=== PATIENT | male | born 1975 | race Caucasian/White ===

== ENCOUNTER 2021-05-06 16:47 | Outpatient (CLI) | payer BC, SELFPAY ==
--- NOTE | ~2021-05-06 | US_ITS ---
EXAMINATION: US right upper quadrant EXAM DATE: 05/06/2021 17:09 INDICATION: Right upper quadrant pain. TECHNIQUE: Multiple grayscale and Doppler images of the abdomen right upper quadrant were obtained (b y a technologist who performed the scan) and subsequently reviewed. There is no prior study for paxton ho. FINDINGS: The pancreatic head and body are normal in appearance. The pancreatic tail is not visualized. There is echogenic liver parenchyma, hepatic steatosis. There are no focal liver lesions identified. Th ere is no evidence of intrahepatic biliary duct dilation. Portal venous flow was seen in the hepatop edal, normal direction and has normal Doppler waveform. No right-sided hydronephrosis. Common bile duct measures 5 mm, which is normal. The gallbladder wall is normal in thickness, with ex pected amount of distention. No sonographic evidence of pericholecystic fluid. There is no cholelit hiases. Technologist performing exam reports patient did not demonstrate sonographic Churchill's sign. Please note that this sign is less reliable in patients who have received pain medication. IMPRESSION: 1. Hepatic steatosis. Reviewed, dictated and finalized at location G. IMPRESSION: 1. Hepatic steatosis.
== END 2021-05-06 16:48 | disposition home or self-care (01) ==
LOC: ANHIMG 16:51
PROVIDERS: PCP Internal Medicine; Visit Provider Internal Medicine
DX: R10.9 Unspecified abdominal pain (principal); K76.0 Fatty (change of) liver, not elsewhere classified
CPT/HCPCS: 76705

== ENCOUNTER 2023-08-09 15:21 | Outpatient (CLI) | payer BC, SELFPAY ==
--- NOTE | ~2023-08-09 | XR_ITS ---
3 VIEWS THORACIC SPINE Ordering provider: Kathrine Gresham, PAMelony History: . PAIN IN THORACIC SPINE . Comparison: None. FINDINGS: VERTEBRAL BODIES: Normal height and alignment. No visible fracture or subluxation. Degenerative perea es of the spine. DISK SPACES: Narrowing of the disc space at multiple levels in the upper and lower thoracic area is n oted. SOFT TISSUES: Normal. IMPRESSION: No acute osseous abnormality of the thoracic spine. Reviewed, dictated and finalized at location A.
== END 2023-08-09 15:22 ==
PROVIDERS: PCP Physician Assistant; Visit Provider Physician Assistant
DX: M54.6 Pain in thoracic spine (principal)
CPT/HCPCS: 72070

== ENCOUNTER 2024-03-20 12:07 | Observation (INO) | payer BC, SELFPAY ==
[2024-03-20] VITALS (22 sets, daily range): BP systolic 101–141; BP diastolic 63–92; PULSE 77–166; RESP 14–20; TEMP 36.6–37.2; O2SAT 95–100; BMI 26.4
--- NOTE | ~2024-03-20 | CT_ITS ---
EXAMINATION: CT brain wo con DATE: 03/21/2024 13:22 INDICATION: Dizziness TECHNIQUE: Computed tomography (CT) of the head was performed without intravenous contrast. Sagittal and coronal reconstructions were performed. The mA was adjusted according to patient size. Iterative reconstruction technique was employed. The dose-length product was 605.33 mGy-cm. COMPARISON: None FINDINGS: No acute intracranial hemorrhage, acute infarction or abnormal extra axial fluid collection. Ventricl es are normal and symmetric. No mass/mass effect. The orbits, paranasal sinuses and mastoid air cells are normal. IMPRESSION: 1. Normal head CT. Reviewed, dictated and finalized at location A. BONER IMPRESSION: 1. Normal head CT.
--- NOTE | 2024-03-20 12:13 | ECG_ITS ---
Test Date: 2024-03-20 12:23:06 Measurements Intervals [place] Rate: 157 P: 0 WI: 0 QRS: 64 QRSD: 78 T: 22 QT: 232 QTc: 376 Interpretive Statements ATRIAL FLUTTER WITH RPAID VENTRICULAR RESPONSE VENTRICULAR PREMATURE COMPLEX RIGHT VENTRICULAR CONDUCTION DELAY ABNORMAL ECG No previous ECG available for comparison Electronically Signed On 03-20-2024 12:42:13 EXECUTIVE COMMUNICATIONS MANAGER by Trever Guaman D.O.
--- OUTSIDE RECORDS SUMMARY | 2024-03-20 12:19 | XMS_ITS | Data Portability ---
Author Organization [facility], Main Office Address [address] [place] [address] Assessment No assessment recorded. Plan of Treatment Reminders Order Date Submit Date Provider Last Modified By Organization Details Last Modified Time Details Appointments None recorded. Lab CMP, serum or plasma [address] Out[facility], [address] [place], [address], 17:54:37 CBC w/ auto diff [address] Out[facility] Lab, [address] [place], [address], 3 17:54:48 TSH + free T4, serum 2022 023 [facility] Out[facility] Lab, [address] [place], [address], 3 17:49:11 urinalysis complete, reflex culture [address] Out[facility] Lab, [address] [place], [address], 3 17:54:57 lipid panel, serum [address] Out[facility] Lab, [address] [place], [address], 3 17:54:20 PSA, serum or plasma [address] Out[facility] Lab, [address] [place], [address], 3 17:55:06 HbA1c (hemoglobin A1c), blood [address] Out[facility] Lab, [address] [place], [address], 3 17:54:28 CMP, serum or plasma [address] Outpatient Lab, [address] [place], [address], 4 10:08:53 lipid panel, serum [address] Outpatient Lab, [address] [place], [address], 4 10:08:52 Referral None recorded. Procedures colonoscopy screening (PROC) 2022 023 [email or web address] 4 Andie Ramos MD, [address] [facility], [address], [place], [address], 4 10:16:49 Surgeries None recorded. Imaging MRI, lumbar spine, w/o contrast [address] (Imaging), [address] [place], [address], 3 16:53:18 CT, angiogram, head + neck, w/ contrast - approved [id number] [address] (Imaging), [address] [place], [address], 4 10:09:00 Medication Orders None recorded. Patient TargetsNo targets recorded. Patient InstructionsNo instructions recorded. Reason for Referral None Reported. Results Created Date Observation Date Name Description Value Unit Range Abnormal Flag Note LastModifiedBy Organization Detail LastModifiedTime 05/19/19 22 05/18/2021 LIPID PANEL LDL cholesterol, calculated 112 mg/dL 0-130 [facility] REPOR T RECOM MENDA TIONS FOR LDL: ADULT CHILD LOW RISK <130 <110 (OPTI MAL LDL) <100 ----- BORDE RLINE : 130-1 59 ----- HIGH RISK: >160 >130 A TRIGL YCERI DE RESUL T >400 INVAL IDATE S THE CALCU LATIO N FOR LDL FRACT IONAT ION - THE LDL RESUL T WILL NOT BE REPOR EDEN. Not Available [facility] (Lab) [address] [place], [address], 05/18/2021 12:08:07 05/19/19 22 05/18/2021 LIPID PANEL cholesterol 175 mg/dL 140-19 9 [facility] NSUS RECOM MENDA TION FOR DENIS STERO L: ADULT CHILD LOW RISK: <200 <170 BORDE RLINE : <200- 239 ----- HIGH RISK: >240 >200 Not Available [facility] (Lab) [address] [place], [address], 05/18/2021 12:08:07 05/19/19 22 05/18/2021 LIPID PANEL triglyceride s 121 mg/dL 0-150 [facility] REPOR T RECOM MENDA TION FOR TRIGL YCERI NETO: ADULT CHILD LOW RISK: <150 ----- BODER LINE: 150-1 99 ----- HIGH RISK: >200 ----- Not Available [facility] (Lab) [address] [place], [address], 05/18/2021 12:08:07 05/19/19 22 05/18/2021 LIPID PANEL HDL cholesterol 39 mg/dL 40- low Not Available [facility] (Lab) [address] [place], [address], 05/18/2021 12:08:07 05/19/19 22 05/18/2021 HEMOG LOBIN A1C HA1C 5.3 % 4.0-6. 0 Diabe alejandra Scree janet Crite justin: <5.7% Consi stent with absen ce of diabe alejandra 5.7-6 .4% Consi stent with incre ased risk for diabe alejandra (pred iabet es) >OR=6 .5% Consi stent with diabe alejandra REFER ENCE: Diabe alejandra Care 2015, 39(Holden ppl.1 ):s13 -s22 Not Available [facility] (Lab) [address] [place], [address], 05/18/2021 12:48:55 05/19/19 22 05/18/2021 COMPR EHENS CHAD METAB OLIC PANEL carbon dioxide 28 mmol/ L 22-30 Not Available [facility] (Lab) [address] [place], [address], 05/18/2021 12:08:05 05/19/19 22 05/18/2021 COMPR EHENS CHAD METAB OLIC PANEL sodium 139 mmol/ L 137-14 5 Not Available [facility] (Lab) [address] [place], [address], 05/18/2021 12:08:05 05/19/19 22 05/18/2021 COMPR EHENS CHAD METAB OLIC PANEL potassium 4.7 mmol/ L 3.5-5. 1 Not Available [facility] (Lab) [address] [place], [address], 05/18/2021 12:08:05 05/19/19 22 05/18/2021 COMPR EHENS CHAD METAB OLIC PANEL chloride 103 mmol/ L 98-107 Not Available [facility] (Lab) [address] [place], [address], 05/18/2021 12:08:05 05/19/19 22 05/18/2021 COMPR EHENS CHAD METAB OLIC PANEL agap 12.7 mmol/ L 14-22 low Not Available [facility] (Lab) [address] [place], [address], 05/18/2021 12:08:05 05/19/19 22 05/18/2021 COMPR EHENS CHAD METAB OLIC PANEL glucose 108 mg/dL 70-99 high Not Available [facility] (Lab) [address] [place], [address], 05/18/2021 12:08:05 05/19/19 22 05/18/2021 COMPR EHENS CHAD METAB OLIC PANEL BUN 10 mg/dL 8-19 Not Available [facility] (Lab) [address] [place], [address], 05/18/2021 12:08:05 05/19/19 22 05/18/2021 COMPR EHENS CHAD METAB OLIC PANEL creatinine 0.88 mg/dL 0.66-1 .25 Not Available [facility] (Lab) [address] [place], [address], 05/18/2021 12:08:05 05/19/19 22 05/18/2021 COMPR EHENS CHAD METAB OLIC PANEL GFR >60 Refer ence Range : [place] ge GFR Healt hy Adult : >60 mL/mi n/1.7 3 m2 Chron ic Kidne y Disea se: 15-60 mL/mi n/1.7 3 m2 Kidne y Failu re: <15/m L/min /1.73 m2 www.n iddk. nih.g ov The MDRD study equat ion has not been valid ated in child ivet <18 years of age; pregn ant women ; the elder ly >85 years of age; or in some racia l or ethni c subgr oups, such as Hisnc nics. Outsi de the valid ated elisabeth eters , estim ated GFR is less accur ate, requi ring clini ryland judgm ent on a case- by-ca se basis . Clini ryland inter preta tion for other races and ages must be made by the clini donnie. The MDRD study equat ion has not been valid ated for the evalu ation of serum creat inine relat ed to nutri anny l statu s or medic ation usage . For perso ns <18 years of age, a pedia tric GFR calcu lataissatou is avail able on the [facility] websi te: https ://juliet lora.makeda sandoval.o marita/pretty kingess ional s/kdo qi/gf r_cal culat or Not Available [facility] (Lab) [address] [place], [address], 05/18/2021 12:08:05 05/19/19 22 05/18/2021 COMPR EHENS CHAD METAB OLIC PANEL alkaline phosphatase 53 U/L 38-126 Not Available [facility] (Lab) [address] [place], [address], 05/18/2021 12:08:05 05/19/19 22 05/18/2021 COMPR EHENS CHAD METAB OLIC PANEL calcium 9.6 mg/dL 8.4-10 .2 Not Available [facility] (Lab) [address] [place], [address], 05/18/2021 12:08:05 05/19/19 22 05/18/2021 COMPR EHENS CHAD METAB OLIC PANEL alanine aminotransfe rase 37 U/L 0-50 Not Available [facility] (Lab) [address] [place], [address], 05/18/2021 12:08:05 05/19/19 22 05/18/2021 COMPR EHENS CHAD METAB OLIC PANEL aspartate aminotransfe rase 36 U/L 15-46 Not Available [facility] (Lab) [address] [place], [address], 05/18/2021 12:08:05 05/19/19 22 05/18/2021 COMPR EHENS CHAD METAB OLIC PANEL bilirubin, total 0.60 mg/dL 0.20-1 .30 Not Available [facility] (Lab) [address] [place], [address], 05/18/2021 12:08:05 05/19/19 22 05/18/2021 COMPR EHENS CHAD METAB OLIC PANEL total protein 7.7 g/dL 6.3-8. 2 Not Available [facility] (Lab) [address] [place], [address], 05/18/2021 12:08:05 05/19/19 22 05/18/2021 COMPR EHENS CHAD METAB OLIC PANEL albumin 4.8 g/dL 3.4-5. 0 Not Available [facility] (Lab) [address] [place], [address], 05/18/2021 12:08:05 05/19/19 22 05/18/2021 COMPR EHENS CHAD METAB OLIC PANEL globulin 2.9 g/dL 2.6-4. 2 Not Available [facility] (Lab) [address] [place], [address], 05/18/2021 12:08:05 05/19/19 22 05/18/2021 COMPR EHENS CHAD METAB OLIC PANEL A/G ratio 1.7 ratio 1.0-2. 0 Not Available [facility] (Lab) [address] [place], [address], 05/18/2021 12:08:05 05/07/19 22 05/06/2021 , pily newman No observ ation record ed. [id number], [place], [address], 04/14/2022 06:08:16 Result Notes None recorded. Problems Name Problem SNOMED Code Status Onset Date Resolution Date Notes Provider Name and Address Organization Details Recorded Time Benign essential hypertens ion 3987339 Active Not Available [facility] 3 06:01:24 Abdominal pain 42253778 Completed 202112/01/2021 Not Available [facility] 3 06:01:24 Sore throat 308116988 Active 2022 Not Available [facility] 3 06:01:24 Low back pain 980317669 Active 2021 Not Available [facility] 3 06:01:25 Hypertrig lyceridem ia 926024619 Active 2017 Not Available [facility] 3 06:01:25 History of atrial fibrillat ion 145860001 Active 2017 Not Available [facility] 3 06:01:25 Atrial fibrillat ion 98699242 Active Not Available [facility] 3 06:01:25 Hyperlipi demia 16096856 Active Not Available [facility] 3 06:01:25 Tinnitus 81625580 Active 2021 Not Available [facility] 3 06:01:25 Sleep apnea 92000886 Active Not Available [facility] 3 06:01:25 Hyperglyc emia 26482295 Active 2017 Not Available [facility] 3 06:01:25 Degenerat ion of lumbar intervert ebral disc 98795932 Active 2022 GONZALO Gamboa [address], [place], [address] , [employer] 3 10:19:24 Lumbar radiculop athy 789206866 Active 2022 GONZALO Gamboa [address], [place], [address] , [employer] 3 10:19:29 Steatosis of liver 089020418 Active 2022 GONZALO aGmboa [email or web address], [address], [place], [address] , [employer] 3 10:20:40 Subjectiv e pulsatile tinnitus of right ear 90081992283 02524 Active 2022 GONZALO Gamboa [email or web address], [address], [place], [address] , [employer] 3 09:56:29 Problem Notes None recorded. Procedures Surgical History Date Name Laterality Status Provider Name and Address Organization Details Recorded Time Orthopedic Surgery completed Not Available [facility] 04/14/2022 05:56:43 Imaging Results Imaging Date Name Status LastModified by Organiz ation Details LastModified Time 05/06/2021 US, gallbladder completed [id number] [facility] [address], [place], [address], 04/14/2022 06:08:16 Procedure Notes None recorded. Medical Equipment None Reported. Allergies No known drug allergies Medications Name Sig Start Date Stop Date Status Note LastModified by Organization Details LastModified Time vitamin b-1 100 mg tabs active Not Available Not Available Not Available cyclobenzapr ine 10 mg tablet TAKE 1 TABLET BY MOUTH AT BEDTIME NEEDED 05/12 completed Not Available Not Available Not Available amoxicillin 500 mg capsule Take 1 capsule 3 times a day by oral route for 7 days. 05/11 completed Not Available Not Available Not Available clonidine HCl 0.1 mg tablet active Not Available Not Available Not Available trazodone 50 mg tablet active Not Available Not Available No t Available ibuprofen 800 mg tablet TAKE 1 TABLET BY MOUTH EVERY 6 HOURS NEEDED 05/11 completed Not Available Not Available Not Available amiodarone 200 mg tablet 09/01 completed Not Available Not Available Not Available metoprolol succinate ER 50 mg tablet,exten ded release 24 hr TAKE 1 TABLET BY MOUTH EVERY DAY 02/28 completed Not Available Not Available Not Available ondansetron HCl 4 mg tablet active Not Available Not Available Not Available hydroxyzine pamoate 50 mg capsule active Not Available Not Available N ot Available tramadol 50 mg tablet TAKE 1 TO 2 TABLET BY MOUTH EVERY 6 HOURS NEEDED FOR PAIN 05/11 completed Not Available Not Available Not Available amoxicillin 875 mg tablet TAKE 1 TABLET BY MOUTH EVERY 12 HOURS UNTIL GONE 05/11 completed Not Available Not Available Not Available methocarbamo l 750 mg tablet Take 1 tablet every 4 hours by oral route. 09/01 completed Not Available Not Available Not Available hydrocodone 7.5 mg-acetamino phen 325 mg tablet 09/01 completed Not Available Not Available Not Available dexamethason e 4 mg tablet 12/02 completed Not Available Not Available Not Available buspirone 10 mg tablet active Not Available Not Available No t Available diltiazem CD 120 mg capsule,exte nded release 24 hr 04/12 completed Not Available Not Available Not Available metoprolol succinate ER 25 mg tablet,exten ded release 24 hr TAKE 1 TABLET BY MOUTH EVERY DAY active Not Available Not Available No t Available lorazepam 1 mg tablet active Not Available Not Available No t Available lovastatin 20 mg tablet Take 1 tablet every day by oral route. 2012 active Not Available Not Available Not Avai lable fluticasone propionate 50 mcg/actuatio n nasal spray,suspen lynsey 04/12 completed Not Available Not Available Not Available amoxicillin 875 mg-potassium clavulanate 125 mg tablet 04/12 completed Not Available Not Available Not Available escitalopram 10 mg tablet active Not Available Not Available Not Available cyclobenzapr ine 5 mg tablet Take 1 tablet 3 times a day by oral route. active Not Available Not Available No t Available Xarelto 20 mg tablet 04/12 completed Not Available Not Available Not Available Vitals Date Recorded Body mass index (BMI) Body mass index (BMI) Body mass index (BMI) Body height Body height Body height Oxygen saturation Oxygen saturation in Arterial blood by Pulse oximetry Oxygen saturation Oxygen saturation in Arterial blood by Pulse oximetry Oxygen saturation Oxygen saturation in Arterial blood by Pulse oximetry Heart rate Heart rate Heart rate Body temperature Body weight Body weight Body weight Systolic blood pressure Diastolic blood pressure Systolic blood pressure Diastolic blood pressure Systolic blood pressure Diastolic blood pressure Provider Name and Address Organization Details Last Updated DateTime 3 27.3 kg/m2 26.6 kg/m2 26.1 kg/m2 168.91 cm 168.91 cm 168.91 cm 98 % 98 % 98 % 98 % 99 % 99 % 66 /min 64 /min 69 /min 97.5 [degF] 39025.8 9 g 98192.9 3 g 84012.1 5 g 136 mm[Hg] 80 mm[Hg] 120 mm[Hg] 80 mm[Hg] 138 mm[Hg] 70 mm[Hg] Not Available [facility] 3 05:57:39 Date Recorded Body height Body temperature Body weight Heart rate Oxygen saturation Oxygen saturation in Arterial blood by Pulse oximetry Systolic blood pressure Diastolic blood pressure Provider Name and Address Organization Details Last Updated DateTime 3 168.91 cm 98.1 [degF] 32908.7 4 g 84 /min 99 % 99 % 126 mm[Hg] 82 mm[Hg] Bernadette Llamas RN [place] [employer] 3 09:49:16 Date Recorded Body mass index (BMI) Provider Name and Address Organization Details Last Updated DateTime 05/12/2022 26.2 kg/m2 [facility] [address] [facility] [address], [place], [address] [employer] 05/12/2022 10:01:48 Date Recorded Body height Body weight Body temperature Heart rate Oxygen saturation Oxygen saturation in Arterial blood by Pulse oximetry Systolic blood pressure Diastolic blood pressure Provider Name and Address Organization Details Last Updated DateTime 3 168.91 cm 21354.1 5 g 98.2 [degF] 67 /min 99 % 99 % 128 mm[Hg] 80 mm[Hg] Bernadette Llamas RN [facility] [employer] 3 09:30:27 Date Recorded Body mass index (BMI) Systolic blood pressure Diastolic blood pressure Provider Name and Address Organization Details Last Updated DateTime 11/10/2022 26.1 kg/m2 128 mm[Hg] 80 mm[Hg] GONZALO Gamboa [address] [facility], [address] [address], [place], [address], [employer] 11/10/2022 09:58:34 Social History Question Answer Notes LastModified by Organizat ion Details LastModified Time Tobacco Smoking Status Never Smoker Not Available [facility] 04/14/2022 05:54:51 What Is Your Level Of Alcohol Consumption? Moderate [email or web address] Information not available 05/12/2022 What Is Your Level Of Caffeine Consumption? Moderate [email or web address] Information not available 05/12/2022 How Much Tobacco Do You Chew? None [id number] Information not available 04/14/2022 In The 14 Days Before Symptom Onset, Have You Had Close Contact With A Laboratory-confirm ed COVID-19 While That Case Was Ill? No [email or web address] Information n ot available 05/11/2022 In The 14 Days Before Symptom Onset, Have You Had Close Contact With A Person Who Is Under Investigation For COVID-19 While That Person Was Ill? No [email or web address] Information not available 05/11/2022 Are You Currently Employed? Yes [email or web address] Information not available 05/11/2022 What Type Of Diet Are You Following? REGULAR [id number] Information not available 04/14/2022 Which Illicit Or Recreational Drugs Have You Used? None [id number] Information not available 04/14/2022 What Is Your Occupation? [employer] [id number] Information not available 04/14/2022 Have There Been Any Changes To Your Family Or Social Situation? No [email or web address] Information no t available 05/11/2022 Do You Use Insect Repellent Routinely? No [email or web address] Information not available 05/11/2022 What Was The Date Of Your Most Recent Tobacco Screening? 07/23/2020 [id number] Information not available 04/14/2022 What Is Your Relationship Status? [email or web address] Information not available 05/11/2022 Do You Use Your Seat Belt Or Car Seat Routinely? Yes [email or web address] Information not available 05/12/2022 Are You Sexually Active? Yes Information not available 05/12/2022 Do You Have Smoke And Carbon Monoxide Detectors In Your Home? Yes [email or web address] Information not available 05/11/2022 Do You Feel Stressed (tense, Restless, Nervous, Or Anxious, Or Unable To Sleep At Night)? [id number] [email or web address] Information not available 05/12/2022 Do You Use Any Illicit Or Recreational Drugs? No [email or web address] Information not available 05/11/2022 Do You Use Sunscreen Routinely? No [id number] Information not available 04/14/2022 Have You Recently Traveled Abroad? No [email or web address] Information not available 05/11/2022 Do You Have Any Dietary Restrictions? No [email or web address] Information not available 05/11/2022 Do You Or Have You Ever Used Any Other Forms Of Tobacco Or Nicotine? No [email or web address] Information not available 05/11/2022 Sex: Male Functional Status Question Answer Note LastModified by Organizat ion Details LastModified Time What is your exercise level? Moderate [id number] Information not available 04/14/2022 Mental Status None recorded. Family History Relationship Description Onset Age of this Age Resolved Age Notes LastModified by Organization Details LastModified Time Maternal Grandfather Diabetes mellitus [id number] Not available 04/14/2022 05:56:44 Maternal Grandmother Malignant neoplastic disease [id number] Not available 04/14/2022 05:56:44 Maternal Uncle Malignant neoplastic disease [id number] Not available 04/14/2022 05:56:44 Medical History No medical history recorded. Past Encounters Encounter ID Performer Location Encounter Start Date Encounter Closed Date Diagnosis/Indication Diagnosis SNOMED-CT Code Diagnosis ICD10 Code Diagnosis Note [id number] [facility] [address] [place] [address] 06/04/2020 00:00:00 06/04/2020 16:10:34 [id number] [facility] [address] [facility] [address] [place] [address] 07/23/2020 00:00:00 07/23/2020 12:51:29 [id number] [facility] [id number] [place] [address] 07/28/2020 00:00:00 07/28/2020 13:18:42 [id number] [facility] [address] [place] [address] 12/02/2020 00:00:00 12/02/2020 11:00:21 [id number] [facility] [address] [place] [address] 05/11/2021 00:00:00 05/11/2021 10:37:43 [id number] [facility] [address] [place] [address] 12/01/2021 00:00:00 12/01/2021 13:36:25 [id number] GONZALO Gamboa [facility] [address] [place] [address] 05/12/2022 09:36:13 05/12/2022 10:28:34 Adult health examination 582632966 Z00.01 well exam completed Benign ess ential hypertension 9572679 I10 stable History of atrial fibrillation 584884401 Z86.79 stable. Hyperlipidemia 10822171 E78.5 fasting lipids due Degenerati on of lumbar intervertebral disc 08245324 M51.36 hx noted. sees pain management . Lumbar radiculopathy 128 973081 M54.16 symptomati c. hx of lumbar surgery. needs Updated MRI so Neurosurge ry will see him in consult. History of operative procedure on lumbar spinal structure 136988641 Z98.890 hx noted 2010 Screening for malignant neoplasm of prostate 989330465 Z12.5 PSA due Screening for malignant neoplasm of colon 440071758 Z12.11 baseline colonoscop y due. Diabetes m ellitus screening 515804095 Z13.1 screening for diabetes due Steatosis of liver 1007 K76.0 hx noted Long-term drug therapy 500136432 Z79.899 routine labs due. [id number] GONZALO Gamboa [facility] [place] [address] [place] [address] 11/10/2022 09:21:57 11/10/2022 10:13:38 Benign essential hypertension 2231463 I10 stable on metoprolol ER 50mg daily. Hyperlipidemia 49653219 E78.5 diet and exercise managed. repeat fasting lipids in Nov. Long-term drug therapy 431350202 Z79.899 Subjective pulsatile tinnitus of right ear 6687888924 092693 H93.A1 pt reports onset this year of pulsatile right sided tinnitus, more notable during quiet times. refer for CT angiogram head and neck for evaluation in symptomato logy Health Concerns Section Related Observation LastModified by Organization Detai ls LastModified Time None Recorded Concern Status LastModified by Organization Details LastModified Time None Recorded Advance Directives Directive None Recorded Payers Encounter Date Sequence Insurance Name Policy Number Policy Colindres Covered Member ID Colindres Member ID Guarantor Name 05/12/2022 1 [place] [id number] Naif Yu [id number] Naif Yu 11/10/2022 1 [place] [id number] Naif Yu [id number] Naif Yu Notes Date Note Type Note Provider Name and Address Organization Details Recorded Time 3 text/html HypertensionReported bypatient.Onset/Timing:be tter Alleviating Factors:medication Associated Symptoms:no shortness of breath; no fatigue; no palpitations; no decline in exercise capacity; no snoring pt here to establish carec/o back painreports last summer was dx with fatty liver GONZALO Gamboa [address], [place], [address], [employer] 05/12/2022 21:08:01 3 text/html HypertensionReported bypatient.Onset/Timing:be tter Alleviating Factors:medication Associated Symptoms:no shortness of breath; no fatigue; no palpitations; no decline in exercise capacity; no snoring GONZALO Gamboa [address], [place], [address], [employer] 11/10/2022 19:17:14
--- OUTSIDE RECORDS SUMMARY | 2024-03-20 12:19 | XMS_ITS | Data Portability ---
Author Organization DAVEY Yasmeen FITZGERALD Address [address] [place] [address] Care Team Providers Care Try Out Person Name Role Phone CODIKATHRINE CADET Primary Care Provider Unavailab le Assessment No assessment recorded. Plan of Treatment Reminders Order Date Submit Date Provider Last Modified By Organization Details Last Modified Time Details Appointments None recorded. Lab TSH + free T4, serum 2023 024 [facility], [address] [place], [address], 4 09:31:51 CBC w/ auto diff [address] Out[facility] Lab, [address] [place], [address], 4 10:57:26 CMP, serum or plasma [address] Outpatient Lab, [address] [place], [address], 4 10:57:26 lipid panel, serum [address] Out[facility] Lab, [address] [place], [address], 4 10:57:26 PSA, serum or plasma [address] Out[facility] Lab, [address] [place], [address], 4 10:57:26 testostero ne, free + total, serum [address] [facility], [address] [place], [address], 4 12:24:27 vitamin B12 + folate, serum or blood [address] Outpatient Lab, [address] [place], [address], 4 10:57:26 HbA1c (hemoglobi n A1c), blood [address] Outpatient Lab, [address] [place], [address], 4 10:57:26 CMP, serum or plasma 2023 024 [facility], [address] [place], [address], 5 13:44:22 lipid panel, serum [address] [facility], [address] [place], [address], 5 13:41:13 Referral None recorded. Procedures None recorded. Surgeries None recorded. Imaging XR, thoracic spine, 2 view 2023 024 [facility], [address], [facility] [address], [place], [address], 4 10:06:33 MRI, thoracic spine, w/o contrast 2023 024 [email or web address], [address], [address], [place], [address], 4 15:48:53 Medication Orders meloxicam 15 mg tablet 2023 024 [facility][id number], [address], [place], [address], 4 17:55:10 Patient TargetsNo targets recorded. Patient InstructionsNo instructions recorded. Reason for Referral None Reported. Results Created Date Observation Date Name Description Value Unit Range Abnormal Flag Note LastModifiedBy Organization Detail LastModifiedTime 08/10/19 24 08/09/2023 XR, thora cic spine , 2 view No observ ation record ed. [facility] [address], [place], [address], 08/16/2023 18:11:22 Result Notes None recorded. Problems Name Problem SNOMED Code Status Onset Date Resolution Date Notes Provider Name and Address Organization Details Recorded Time Body mass index 25-29 - overweight 237649698 Active 2023 GONZALO Gamboa Attn: Accountin g,[address] [facility], [place], [address], [facility] 4 11:54:58 Osteoarthritis 927353110 Active 2023 GONZALO Gamboa Attn: Accountin g,[address] [facility], [place], [address], [facility] 4 11:55:08 Chronic low back pain 682856620 Active 2023 GONZALO Gamboa Attn: Accountin g,[address] [facility], [place], [address], [place] [facility] 4 11:55:26 Thoracic back pain 714012990 Active 2023 GONZALO Gamboa Attn: Accountin g,[address] [facility], [place], [address], [place] [facility] 4 11:55:48 Benign essential hypertension 7557773 Active 2023 GONZALO Gamboa Attn: Accountin g,[address] [facility], [place], [address], [facility] 4 11:57:13 Long-term drug therapy Active 2023 GONZALO Gamboa Attn: Juan Antonio gaxiola,[address] [facility], [place], [address], [facility] 4 01:29:35 Hyperlipidemia 26461640 Active 2023 GONZALO Gamboa Attn: Juan Antonio gaxiola,[address] [facility], [place], [address], [facility] 4 01:29:46 Body mass index 20-24 - normal 556454307 Active 2023 GONZALO Gamboa Attn: Juan Antonio gaxiola,[address] [facility], [place], [address], [facility] 4 01:30:12 Problem Notes None recorded. Procedures Surgical History Date Name Laterality Status Provider Name and Address Organization Details Recorded Time Back Surgery completed Ruy Vallejo MA [facility] 08/09/2023 15:22:37 Imaging Results Imaging Date Name Status LastModified by [facility] Details LastModified Time 08/09/2023 XR, thoracic spine, 2 view completed [facility] [address] [facility] [address], [place], [address], 08/16/2023 18:11:22 Procedure Notes None recorded. Medical Equipment None Reported. Allergies No known drug allergies Medications Name Sig Start Date Stop Date Status Note LastModified by Organization Details LastModified Time vitamin b-1 100 mg tabs active Not Available Not Available Not Available clonidine HCl 0.1 mg tablet 08/08 completed Not Available Not Available Not Available trazodone 50 mg tablet 08/08 completed Not Available Not Available Not Available metoprolol succinate ER 50 mg tablet,ext ended release 24 hr TAKE 1 TABLET BY MOUTH EVERY DAY 06/14 completed Not Available Not Available Not Available meloxicam 15 mg tablet TAKE 1 TABLET BY MOUTH EVERY DAY w/food 2023 active Not Available Not Available Not Avai lable ondansetro n HCl 4 mg tablet 08/08 completed Not Available Not Available Not Available hydroxyzin e pamoate 50 mg capsule 08/08 completed Not Available Not Available Not Available buspirone 10 mg tablet 08/08 completed Not Available Not Available Not Available metoprolol succinate ER 25 mg tablet,ext ended release 24 hr TAKE 1 TABLET BY MOUTH EVERY DAY 10/02 completed Patient stated Kathrine Mp took him off of this medicati on. Not Available Not Available Not Available lorazepam 1 mg tablet 08/08 completed Not Available Not Available Not Available escitalopr am 10 mg tablet 08/08 completed Not Available Not Available Not Available Vitals Date Recorded Body height Body mass index (BMI) Body weight Respiratory rate Oxygen saturation Oxygen saturation in Arterial blood by Pulse oximetry Heart rate Systolic blood pressure Diastolic blood pressure Provider Name and Address Organization Details Last Updated DateTime 4 170.18 cm 25.2 kg/m2 30765.9 3 g 20 /min 99 % 99 % 60 /min 148 mm[Hg] 88 mm[Hg] Ruy Vallejo MA [facility] 4 15:32:39 Date Recorded Systolic blood pressure Diastolic blood pressure Systolic blood pressure Diastolic blood pressure Provider Name and Address Organization Details Last Updated DateTime 08/09/2023 132 mm[Hg] 84 mm[Hg] 140 mm[Hg] 80 mm[Hg] GONZALO Gamboa Attn: Accounting ,[address] [place], [address] , [facility] 4 15:59:01 Date Recorded Body height Body mass index (BMI) Body weight Heart rate Oxygen saturation Oxygen saturation in Arterial blood by Pulse oximetry Systolic blood pressure Diastolic blood pressure Provider Name and Address Organization Details Last Updated DateTime 4 170.18 cm 24.6 kg/m2 17307.2 8 g 74 /min 97 % 97 % 122 mm[Hg] 68 mm[Hg] Leydi Garcia MA [facility] 4 17:19:33 Date Recorded Systolic blood pressure Diastolic blood pressure Provider Name and Address Organization Details Last Updated DateTime 10/03/2023 128 mm[Hg] 80 mm[Hg] GONZALO Gamboa Attn: Accounting,[address] [place], [address], [facility] 10/03/2023 17:55:33 Social History Question Answer Notes LastModified by Organizat ion Details LastModified Time Tobacco Smoking Status Never Smoker Ruy Vallejo MA [facility], [facility] 08/09/2023 15:23:48 Do You Have An Advance Directive? No Information not available 08/09/2023 What Is Your Level Of Alcohol Consumption? None Former Information not available 08/09/2023 Are You Blind Or Do You Have Difficulty Seeing? No Glasses Information not available 08/09/2023 What Is Your Level Of Caffeine Consumption? Occasional Information not available 08/09/2023 In The 14 Days Before Symptom Onset, Have You Had Close Contact With A Laboratory-confir med COVID-19 While That Case Was Ill? No Information not available 08/09/2023 In The 14 Days Before Symptom Onset, Have You Had Close Contact With A Person Who Is Under Investigation For COVID-19 While That Person Was Ill? No Information not available 08/09/2023 Have You Been To An Area Known To Be High Risk For COVID-19? No Information not available 08/09/2023 Are You Currently Employed? Yes Information not available 08/09/2023 Are You Deaf Or Do You Have Serious Difficulty Hearing? No Tinnuits Information not available 08/09/2023 What Type Of Diet Are You Following? 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 No Information not available 08/09/2023 What Was The Date Of Your Most Recent Tobacco Screening? 10/03/2023 Information not available 10/03/2023 What Is Your Relationship Status? Information not available 10/03/2023 Do You Use Your Seat Belt Or Car Seat Routinely? Yes Information not available 08/09/2023 Do You Have Smoke And Carbon Monoxide Detectors In Your Home? Yes Information not available 08/09/2023 Do You Use Any Illicit Or Recreational Drugs? No Information not available 08/09/2023 Do You Use Sunscreen Routinely? No Information not available 10/03/2023 Has Tobacco Cessation Counseling Been Provided? No Information not available 10/03/2023 On What Date Was Tobacco Cessation Counseling Provided? 10/03/2023 Information not available 10/03/2023 Do You Or Have You Ever Used Any Other Forms Of Tobacco Or Nicotine? No Information not available 08/09/2023 Sex: Male Functional Status Question Answer Note LastModified by Organization D etails LastModified Time Are you able to care for yourself? Yes Information not available 08/09/2023 What is your exercise level? Moderate Information not available 08/09/2023 Mental Status None recorded. Family History Relationship Description Onset Age of this Age Resolved Age Notes LastModified by Organization Details LastModified Time Father Alcohol abuse [email or web address] Not available 2023 15:23:16 Father Diabetes mellitus [email or web address] Not available 2023 15:23:21 Father Migraine [email or web address] Not availabl e 08/09/2023 15:23:31 Mother Disorder of thyroid gland tcarterma Not available 2023 15:23:25 Medical History Condition Response Coronary Artery Disease N Other N High Blood Pressure Y Atrial Fibrillation Y Kidney or Bladder Problems N Thyroid Problems N GI Problems N Depression N COPD N Blood Clots N Skin Problems N Anemia N Heart Attack ([place]) N Anxiety Disorder Y Diabetes N Muscle, Joint, or Bone Problems Y Seizures/Epilepsy N Acid Reflux (GERD) N Cancer N Stroke N Asthma N Allergies N High Cholesterol Y Hepatitis N Liver Disease N Headaches N Heart Failure N Osteoporosis N Past Encounters Encounter ID Performer Location Encounter Start Date Encounter Closed Date Diagnosis/Indication Diagnosis SNOMED-CT Code Diagnosis ICD10 Code Diagnosis Note [id number] GONZALO Gamboa [facility] - [facility]havin Ling [address] [place] [address] 08/09/2023 15:10:02 08/09/2023 16:07:03 Body mass index 25-29 - overweight 996499423 Z68.25 Thoracic back pain 76917 8004 M54.6 More problemati c and acute at this time is thoracic back pain. Check baseline x-ray of the thoracic spine with plans to proceed with an MRI to evaluate disc spacing and nerve root exits. Chronic low back pain 27 1013685 M54.50 Chronic low back pain with history of lumbar L5 diskectomy Osteoarthritis 975914522 M19.90 Underlying osteoarthr itis noted per patient report Cholesterol screening 27 6157683 Z13.220 Fasting lipid panel due Diabetes m ellitus screening 591275015 Z13.1 Annual A1c screening due Screening for malignant neoplasm of prostate 299740234 Z12.5 Annual PSA due Long-term drug therapy 706789386 Z79.899 Routine CBC and CMP labs ordered Thyroid di sorder screening 322117306 Z13.29 Routine thyroid function panel ordered Endocrine/ metabolic screening 897834979 Z13.228 Screening testostero ne per patient request and check vitamin B12 and folate. Benign ess ential hypertension 0370804 I10 Patient is running around 140/80 at this time, borderline control currently on metoprolol succinate ER 25 mg daily. He will continue to monitor pressures, at this time we will keep dosing at 25 mg. [id number] GONZALO Gamboa [facility] [place] [address] [place] [address] 10/03/2023 17:02:45 10/03/2023 18:09:39 Hyperlipidemia 33023937 E78.5 Fasting lipid panel is due to monitor for improvemen t with dietary Long-term drug therapy 617526969 Z79.899 Routine CMP lab due Chronic low back pain 27 9999291 M54.50 Chronic low back pain with history of lumbar L5 diskectomy Adult heal th examination 522747292 Z00.00 Annual wellness exam complete Body mass index 20-24 - normal 144459981 Z68.24 BMI is 24.6 Health Concerns Section Related Observation LastModified by Organization Detai ls LastModified Time None Recorded Concern Status LastModified by Organization Details LastModified Time None Recorded Advance Directives Directive N: Payers Encounter Date Sequence Insurance Name Policy Number Policy Colindres Covered Member ID Colindres Member ID Guarantor Name 08/09/2023 1 [place] [id number] 3 Naif Yu [id number] Naif Yu 10/03/2023 1 [place] [id number] 3 Naif Yu [id number] Naif Yu Notes Date Note Type Note Provider Name and Address Organization Details Recorded Time 08/09/2023 text/html Back PainReporte d bypatient.Aggravatin g Factors:movement/pos itioning Associated Symptoms:no fever; no weak limbs; no numbness of the legs/feet; no tingling; no incontinence; no shortness of breathNotes:Mid-back x 1 year, painful, spasms, and getting worse and uncomfortable to sleep. seeing Chiropractor routinely for at least a year. Dr. Bernabe in [place]. Nothing is helping the middle back. There is a knot feeling and jabbing feeling, and numbness. Sharp pains that occur for seconds in the posterior left shoulder and upper arm/side. He does have hx of CLBP with hx of L5 discectomy type procedure. Hx of pain management lumbar spine, with multiple injections in , Dr. Herbert in [place].HypertensionRe ported bypatient.Notes:off metoprolol ER now. BP has been stable at home. 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 GONZALO Gamboa Attn: Accounting,[address] [place], [address], [facility] 08/21/2023 11:57:34 10/03/2023 text/html Back PainReporte d bypatient.Notes:Cookie pedro has chronic low back pain and this continues to be a source of most of his symptoms. He does exercise and eat healthy and that does help to a certain degree with managing his symptoms but just his chronic pain history structurally remains problematic.Hyperlip idemiaReported bypatient.Notes:Cookie pedro has a history of hyperlipidemia but declines any medication therapy. GONZALO Gamboa Attn: Accounting,[address] [facility], [place], [address], [facility] 10/16/2023 01:30:40
--- NOTE | 2024-03-20 12:20 | ED_ITS ---
HPI - Arrhythmia/Palpitations General Chief Complaint: Arrhythmia/Palpitations <Malini Ames APRN - Last Filed: 03/20/24 12:22> Stated Complaint: Afib-shortness of breath <Malini Ames APRN - Last Filed: 03/20/24 12:22> Time Seen by Provider: 03/20/24 12:10 <Malini Ames APRN - Last Filed: 03/20/24 12:22> Focused HPI: Patient is a 48-year-old male presents to the ER with palpations, dizziness and shortness of breath that started last night around 8:00 p.m. He reports he has a history of palpations but has not had them in the past year since he stopped drinking alcohol. Patient denies any recent fevers, chest pain, abdominal pain, or back pain. He denies any her history of besides his alcoholism. GENERAL: Well-appearing, well-nourished, and in no acute distress. HEAD: Normocephalic, atraumatic. CHEST: Clear to auscultation. ?No respiratory distress. HEART: Tachycardia, irregular rhythm? NEURO: ?Alert and oriented x3. Patient screened in triage and initial orders placed.? ?Additional care and disposition to be based upon?diagnostic testing and treatment. <Malini Ames APRN - Last Filed: 03/20/24 12:22> Source: patient <Paul Johnson MD - Last Filed: 03/20/24 15:05> Mode of arrival: ambulatory <Paul Johnson MD - Last Filed: 03/20/24 15:05> Limitations: no limitations <Paul Johnson MD - Last Filed: 03/20/24 15:05> History of Present Illness HPI narrative: 48-year-old with a remote history of AFib presents to the ER with the complaints of palpitations since last night. Patient states that he was heavy drinker in the past and he use have episodes of AFib, He has been sober for quite some times and his doctor took him off the medication, he denies any chest pain but complains of chest discomfort and being lightheaded. He also mentions that use to convert on his own however this time it has been more than 5 hours. <Paul Johnson MD - Last Filed: 03/20/24 15:05> MD complaint: rapid heart beat <Paul Johnson MD - Last Filed: 03/20/24 15:05> Onset (ago): day(s) (1) <Paul Johnson MD - Last Filed: 03/20/24 15:05> Duration: constant <Paul Johnson MD - Last Filed: 03/20/24 15:05> Severity: moderate <Paul Johnson MD - Last Filed: 03/20/24 15:05> Context: occurred during rest <Paul Johnson MD - Last Filed: 03/20/24 15:05> Arrhythmia history: atrial fibrillation <Paul Johnson MD - Last Filed: 03/20/24 15:05> Associated symptoms: other (dizzy) <Paul Johnson MD - Last Filed: 03/20/24 15:05> Related Data Allergies/Adverse Reactions: Allergies Allergy/AdvReac Type Severity Reaction Status Date / Time No Known Allergies Allergy Verified 03/20/24 12:34 <Malini Ames, [employer] COURT JUDGE - Last Filed: 03/20/24 12:22> Review of Systems 2 Review of Systems: All systems reviewed & are unremarkable except as noted in HPI and below <Paul Johnson MD - Last Filed: 03/20/24 15:05> Constitutional: Constitutional: Reports no additional constitutional complaints <Paul Johnson MD - Last Filed: 03/20/24 15:05> Eyes: Eyes: Reports no additional eye complaints <Paul Johnson MD - Last Filed: 03/20/24 15:05> ENT: Reports system reviewed and no additional complaints, except as documented <Paul Johnson MD - Last Filed: 03/20/24 15:05> Cardiovascular: Cardiovascular: Reports as per HPI <Paul Johnson MD - Last Filed: 03/20/24 15:05> Respiratory: Respiratory: Reports no additional respiratory complaints < Paul Johnson MD - Last Filed: 03/20/24 15:05> Gastrointestinal: Gastrointestinal: Reports no additional gastrointestinal complaints <Paul Johnson MD - Last Filed: 03/20/24 15:05> Musculoskeletal: Musculoskeletal: Reports no additional musculoskeletal complaints <Paul Johnson MD - Last Filed: 03/20/24 15:05> Neurologic: Reports system reviewed and no additional complaints, except as documented <Paul Johnson MD - Last Filed: 03/20/24 15:05> Psychiatric: Psychiatric: Reports no additional psychiatric complaints < Paul Johnson MD - Last Filed: 03/20/24 15:05> Endocrine: Endocrine: Reports no additional endocrine complaints <Paul Johnson MD - Last Filed: 03/20/24 15:05> Exam 2 Narrative: GENERAL: Well-appearing, well-nourished, and in no acute distress. HEAD: Normocephalic, atraumatic. EYES: PERRLA and EOMI. ENT: Nares clear, no rhinorrhea or epistaxis. Mucous membranes moist. NECK: Supple. CHEST: Clear to auscultation. No respiratory distress. HEART: Tachycardic. No murmur heard. Normal peripheral pulses. ABDOMEN: Soft, nontender, nondistended, normal active bowel sounds. EXTREMITIES: Normal range of motion. No edema. SKIN: Warm, dry, no rash. NEURO: No focal deficits. Alert and oriented x3. PSYCH: Normal mood and affect. <Paul Johnson MD - Last Filed: 03/20/24 15:05> Course Course Emergency Course: His initial heart rate was I 70 decided gave IV Lopressor which brought his heart rate down to [id number] but he still remains in a flutter started him the Cardizem drip I did inform him about the lab work. Discussed with cardiology and hospitalist His Julian score is 0 , will differ any anticoagulation at this time. <Paul Johnson MD - Last Filed: 03/20/24 15:05> Vital Signs Vital signs: Vital Signs Temperature 36.7 C 03/20/24 12:11 Pulse Rate 166 H 03/20/24 12:11 Respiratory Rate 18 03/20/24 12:11 Blood Pressure 141/92 H 03/20/24 12:11 Pulse Oximetry 100 03/20/24 12:11 Oxygen Delivery Room Air 03/20/24 12:11 Temperature 37.2 C 03/20/24 12:25 Pulse Rate 79 03/20/24 14:31 Respiratory Rate 16 03/20/24 14:31 Blood Pressure 106/87 03/20/24 14:31 Pulse Oximetry 98 03/20/24 14:31 Oxygen Delivery Room Air 03/20/24 12:25 <Malini Ames APRN - Last Filed: 03/20/24 12:22> Vital Signs Temperature 36.7 C 03/20/24 12:11 Pulse Rate 166 H 03/20/24 12:11 Respiratory Rate 18 03/20/24 12:11 Blood Pressure 141/92 H 03/20/24 12:11 Pulse Oximetry 100 03/20/24 12:11 Oxygen Delivery Room Air 03/20/24 12:11 Temperature 37.2 C 03/20/24 12:25 Pulse Rate 79 03/20/24 14:31 Respiratory Rate 16 03/20/24 14:31 Blood Pressure 106/87 03/20/24 14:31 Pulse Oximetry 98 03/20/24 14:31 Oxygen Delivery Room Air 03/20/24 12:25 <Paul Johnson MD - Last Filed: 03/20/24 15:05> MDM - Arrhythmia/Palpitations Differential Diagnosis Differential diagnosis: Likely palpitations, anxiety, sinus tachycardia, artial fibrillation, artial flutter and supraventricular tachycardia <Paul Johnson MD - Last Filed: 03/20/24 15:05> Medical Records Attestation: I reviewed the patient's medical records. <Paul Johnson MD - Last Filed: 03/20/24 15:05> Lab Data Attestation: I reviewed the patient's lab results. <Paul Johnson MD - Last Filed: 03/20/24 15:05> Result diagrams: 03/20/24 12:37 03/20/24 12:37 <Malini Ames APRN - Last Filed: 03/20/24 12:22> Labs: Lab Results 03/20/24 Range/Units 12:37 WBC 8.9 (4.5-10.0) K/mm3 RBC 5.21 (4.6-6.20) M/mm3 Hgb 15.8 (14.0-18.0) g/dL Hct 47.0 (42.0-52.0) % MCV 90.2 (80-100) fl MCH 30.3 (26-34) pg MCHC 33.6 (32-36) g/dl RDW 12.7 (11.5-14.5) % Plt Count 192 (150-375) k/mm3 MPV 9.9 (7.4-10.4) fl Immature Gran % (Auto) 0.3 (0-0.5) % Neut % (Auto) 53.5 (45.5-73.1) % Lymph % (Auto) 35.5 (18.3-44.2) % George % (Auto) 9.1 H (2.6-8.5) % Eos % (Auto) 0.8 (0-4.4) % Baso % (Auto) 0.8 (0.2-1.2) % Lymph # (Auto) 3.16 (0.9-3.2) K/mm3 George # (Auto) 0.8 H (0.1-0.6) K/mm3 Eos # (Auto) 0.1 (0-0.3) K/mm3 Baso # (Auto) 0.1 (0.0-0.1) K/mm3 Abs Immat Gran (auto) 0.03 (0.00-0.031) K/mm3 Absolute Neuts (auto) 4.8 (1.3-6.7) K/mm3 Absolute Nucleated RBC 0.000 (0.0-0.012) K/mm3 Nucleated RBC % 0.0 (0.0-0.2) % PT 13.4 (11.1-14.7) Seconds INR 1.0 APTT 25.8 (22.3-36.8) Seconds Sodium 137 (137-145) mmol/L Potassium 4.5 (3.4-5.0) mmol/L Chloride 101 (98-107) mmol/L Carbon Dioxide 27 (22-30) mmol/L Anion Gap 9 (4-12) mmol/L BUN 18 (9-20) mg/dL Creatinine 0.96 (0.7-1.3) mg/dL Estim Creat Clear Calc 76 ml/min Estimated GFR > 60 (59 - ) Glucose 103 (65-110) mg/dL Calcium 9.7 (8.4-10.2) mg/dL Total Bilirubin 1.0 (0.2-1.3) mg/dL AST 48 (17-59) U/L ALT 49 (6-50) U/L Alkaline Phosphatase 49 (38-126) U/L Troponin I < 0.012 (0.000-0.034) ng/mL Total Protein 7.0 (6.3-8.2) g/dL Albumin 4.6 (3.5-5.1) g/dL Lipase 81 (23-300) U/L TSH (Reflex) 1.560 (0.465-4.68) uIU/mL <Malini Ames, [employer] COURT JUDGE - Last Filed: 03/20/24 12:22> Lab Results 03/20/24 Range/Units 12:37 WBC 8.9 (4.5-10.0) K/mm3 RBC 5.21 (4.6-6.20) M/mm3 Hgb 15.8 (14.0-18.0) g/dL Hct 47.0 (42.0-52.0) % MCV 90.2 (80-100) fl MCH 30.3 (26-34) pg MCHC 33.6 (32-36) g/dl RDW 12.7 (11.5-14.5) % Plt Count 192 (150-375) k/mm3 MPV 9.9 (7.4-10.4) fl Immature Gran % (Auto) 0.3 (0-0.5) % Neut % (Auto) 53.5 (45.5-73.1) % Lymph % (Auto) 35.5 (18.3-44.2) % George % (Auto) 9.1 H (2.6-8.5) % Eos % (Auto) 0.8 (0-4.4) % Baso % (Auto) 0.8 (0.2-1.2) % Lymph # (Auto) 3.16 (0.9-3.2) K/mm3 George # (Auto) 0.8 H (0.1-0.6) K/mm3 Eos # (Auto) 0.1 (0-0.3) K/mm3 Baso # (Auto) 0.1 (0.0-0.1) K/mm3 Abs Immat Gran (auto) 0.03 (0.00-0.031) K/mm3 Absolute Neuts (auto) 4.8 (1.3-6.7) K/mm3 Absolute Nucleated RBC 0.000 (0.0-0.012) K/mm3 Nucleated RBC % 0.0 (0.0-0.2) % PT 13.4 (11.1-14.7) Seconds INR 1.0 APTT 25.8 (22.3-36.8) Seconds Sodium 137 (137-145) mmol/L Potassium 4.5 (3.4-5.0) mmol/L Chloride 101 (98-107) mmol/L Carbon Dioxide 27 (22-30) mmol/L Anion Gap 9 (4-12) mmol/L BUN 18 (9-20) mg/dL Creatinine 0.96 (0.7-1.3) mg/dL Estim Creat Clear Calc 76 ml/min Estimated GFR > 60 (59 - ) Glucose 103 (65-110) mg/dL Calcium 9.7 (8.4-10.2) mg/dL Total Bilirubin 1.0 (0.2-1.3) mg/dL AST 48 (17-59) U/L ALT 49 (6-50) U/L Alkaline Phosphatase 49 (38-126) U/L Troponin I < 0.012 (0.000-0.034) ng/mL Total Protein 7.0 (6.3-8.2) g/dL Albumin 4.6 (3.5-5.1) g/dL Lipase 81 (23-300) U/L TSH (Reflex) 1.560 (0.465-4.68) uIU/mL <Paul Johnson MD - Last Filed: 03/20/24 15:05> ECG Data EKG #1: ECG completion date: 03/20/24 <Paul Johnson MD - Last Filed: 03/20/24 15:05> ECG completion time: 12:23 <Paul Johnson MD - Last Filed: 03/20/24 15:05> EKG Interpretation: tachycardia (157), atrial fibrillation, NL axis and no acute changes <Paul Johnson MD - Last Filed: 03/20/24 15:05> EKG #2: ECG completion date: 03/20/24 <Paul Johnson MD - Last Filed: 03/20/24 15:05> ECG completion time: 14:56 <Paul Johnson MD - Last Filed: 03/20/24 15:05> EKG Interpretation: normal rate (79), atrial flutter, NL axis and no acute changes < Paul Johnson MD - Last Filed: 03/20/24 15:05> Critical Care Time Critical Care Time Critical Care Time: Yes <Paul Johnson MD - Last Filed: 03/20/24 15:05> Total Critical Care Time: 45 <Paul Johnson MD - Last Filed: 03/20/24 15:05> Discharge Plan Discharge Clinical Impression: Atrial fibrillation with rapid ventricular response <Malini Ames APRN - Last Filed: 03/20/24 12:22> Patient Disposition: Still a Patient <Malini Ames APRN - Last Filed: 03/20/24 12:22> Condition: Stable <Malini Ames APRN - Last Filed: 03/20/24 12:22> Patient Language: Afghan <Malini Ames APRN - Last Filed: 03/20/24 12:22> Follow-up/Referrals: Mp,KLAUDIA Chisholm [Primary Care Provider] - <Malini Ames APRN - Last Filed: 03/20/24 12:22> Time of Disposition: 15:05 <Malini Ames APRN - Last Filed: 03/20/24 12:22> 15:05 <Paul Johnson MD - Last Filed: 03/20/24 15:05>
[2024-03-20] MEDS: ASPIRIN 81 MG CHEWABLE TABLET 324 MG PO (12:37)
[2024-03-20] MEDS: METOPROLOL TARTRATE INJ 5 MG/5 ML VIAL IV PUSH (12:37)
[2024-03-20 12:43] LABS: Basophils Absolute Auto 0.1 K/mm3 (0.0-0.1); Basophils Percent Auto 0.8 % (0.2-1.2); Eosinophils Absolute Auto 0.1 K/mm3 (0-0.3); Eosinophils Percent Auto 0.8 % (0-4.4); Hemoglobin 15.8 g/dL (14.0-18.0); Immature Granulocyte Absolute 0.03 K/mm3 (0.00-0.031); Immature Granulocyte Percent A 0.3 % (0-0.5); Lymphocytes Absolute Auto 3.16 K/mm3 (0.9-3.2); Lymphocytes Percent Auto 35.5 % (18.3-44.2); Mean Corpuscular HGB Conc 33.6 g/dl (32-36); Mean Corpuscular Hemoglobin 30.3 pg (26-34); Mean Corpuscular Volume 90.2 fl (80-100); Mean Platelet Volume 9.9 fl (7.4-10.4); Monocytes Absolute Auto 0.8 K/mm3 (0.1-0.6); Monocytes Percent Auto 9.1 % (2.6-8.5); Neutrophils Absolute Auto 4.8 K/mm3 (1.3-6.7); Neutrophils Percent Auto 53.5 % (45.5-73.1); Platelet Count Result 192 k/mm3 (150-375); Red Blood Count 5.21 M/mm3 (4.6-6.20); Red Cell Distribution Width 12.7 % (11.5-14.5); White Blood Count 8.9 K/mm3 (4.5-10.0)
[2024-03-20] MEDS: SODIUM CHLORIDE 0.9% IV 1,000 ML 150 ML IV CONT (12:43)
[2024-03-20 12:55] LABS: Alanine Aminotransferase 49 U/L (6-50); Albumin Level 4.6 g/dL (3.5-5.1); Alkaline Phosphatase 49 U/L (38-126); Anion Gap 9 mmol/L (4-12); Aspartate Amino Transferase 48 U/L (17-59); Blood Urea Nitrogen 18 mg/dL (9-20); Calcium 9.7 mg/dL (8.4-10.2); Carbon Dioxide 27 mmol/L (22-30); Chloride 101 mmol/L (98-107); Estimated CRCL calculation 76 ml/min; Estimated Glomerular Filt Rate > 60; Glucose 103 mg/dL (65-110); Lipase 81 U/L (23-300); Potassium 4.5 mmol/L (3.4-5.0); Sodium 137 mmol/L (137-145)
[2024-03-20 12:57] LABS: Prothrombin Time 13.4 Seconds (11.1-14.7)
[2024-03-20 12:58] LABS: Partial Thromboplastin Time 25.8 Seconds (22.3-36.8)
[2024-03-20] MEDS: dilTIAZem 100 MG/100 ML 100 MG/100 ML BAG IV CONT (13:04)
[2024-03-20 13:06] LABS: Troponin I < 0.012 ng/mL (0.000-0.034)
--- OUTSIDE RECORDS SUMMARY | 2024-03-20 13:36 | XMS_ITS | CONTINUITY OF CARE DOCUMENT ---
Author Name anna castillo Address Unknown Organization [facility] Address [address] [place] [address] Phone [phone] Care Team Providers Care Bioinformatics Technician Name Role Phone Aditya Gayle MD Unavailable [phone] Zander Cerna MD Unavailable Zander Cerna MD Unavailable [phone] PROBLEMS Condition Status Date Provider Notes ETOH active Amber Mcdonald PALPITATIONS-03/27 HOLTER SR- SB HR 44-120 active ? Jim Norwood RN PIERCE active Aditya Gayle MD SOB active Aditya Baker Hypercholesterolemia active Aditya Gayle MD DIABETES MELLITUS active - Buzz Dumont MD ATRIAL FIB LONE ON BETA BLOC KER NO COUMADIN active Buzz Dumont MD ENCOUNTERS Date Type Provider Location Encounter Diag nosis - In-person encounter Office Visit Aditya Gayle MD [facility] - In-person encounter Office Visit Aditya Gayle MD [facility] OSAHypercholesterolemiaSOB - In-person encounter Office Visit Buzz Dumont MD [facility] - In-person encounter Office Visit Krystian Vincent MD [facility] - In-person encounter Office Visit Buzz Dumont MD [facility] - In-person encounter Office Visit Mian Baker MD [facility] PALPITATIONS-03/27 HOLTER SR-SB HR 44-120 - In-person encounter Office Visit Buzz Dumont MD [facility] ATRIAL FIB LONE ON BETA RJ NO COUMADINDIABETES MELLITUS VITAL SIGNS Date Observation Value Provider blood pressure, diastolic 82 mm[Hg] Adis Christiano Dejesus blood pressure, systolic 146 mm[Hg] Bing Wrightamparo AdamsDejesus pulse rate 59 /min Jono Mckinney vestatavo oxygen saturation, oximetry 98 % Jono Dejesus respiratory rate E&M 16 /min Renny Dejesus Body Mass Index (Ratio) 28.09 kg/m2 Alexandra Dejesus weight E&M 179.4 [lb_av] Jono curtis blood pressure, diastolic 98 mm[Hg] Adis papaLavernlisa Dejesus blood pressure, systolic 140 mm[Hg] Bing Dejesus pulse rate 92 /min Jono Mckinney vestatavo oxygen saturation, oximetry 98 % Jono Dejesus respiratory rate E&M 16 /min Renny Dejesus Body Mass Index (Ratio) 27.28 kg/m2 Alexandra Dejesus weight E&M 174.2 [lb_av] Jono Adams kirsten height E&M 67 [in_i] Jono Mckinney priscilla blood pressure, diastolic 64 mm[Hg] Fonseca blood pressure, systolic 127 mm[Hg] Jason Pinto pulse rate 77 /min Matt Pinto oxygen saturation, oximetry 99 % Matt Pinto respiratory rate E&M 16 /min Matt Pinto weight E&M 181 [lb_av] Matt Pinto blood pressure, diastolic 89 mm[Hg] Adis Adam blood pressure, systolic 130 mm[Hg] Bing odom O'Piyush pulse rate 68 /min Princess O'Piyush oxygen saturation, oximetry 99 % Princess O'Ipyush respiratory rate E&M 16 /min Princess O'Piyush weight E&M 185 [lb_av] Princess O'Piyush blood pressure, diastolic 83 mm[Hg] Adis beckett O'Piyush blood pressure, systolic 147 mm[Hg] Bing odom O'Piyush pulse rate 93 /min Princess O'Piyush oxygen saturation, oximetry 99 % Princess O'Piyush respiratory rate E&M 16 /min Princess O'Piyush weight E&M 186 [lb_av] Princess O'Piyush blood pressure, diastolic 68 mm[Hg] Konstantin Norwood RN blood pressure, systolic 129 mm[Hg] Jim Norwood RN pulse rate 65 /min Jim Norwood RN oxygen saturation, oximetry 99 % Jim Norwood RN respiratory rate E&M 18 /min Jim redd RN weight E&M 185 [lb_av] Jim Norwood RN blood pressure, diastolic 78 mm[Hg] Fonseca blood pressure, systolic 151 mm[Hg] Jason Pinto pulse rate 78 /min Matt Pinto oxygen saturation, oximetry 97 % Matt Pinto respiratory rate E&M 16 /min Matt Pinto weight E&M 186 [lb_av] Matt Pinto ALLERGIES No Known Drug Allergies RESULTS Date Observation Value Provider Reference Range Interpretation Location 1 triglyceride, serum, fasting 337 mg/dL [facility] 1 HDL cholesterol, serum 53 mg/dL [facility] 1 LDL cholesterol, serum 123 mg/dL [facility] 1 cholesterol, serum 243 mg/dL [facility] 3 red blood cell distribution width, size density [facility].6 [facility] immature granulocytes, percentage of total cells, blood 0.3 % [facility] - 3 nucleated red blood cells as percent of blood leukocytes 0.0 % [facility] - 3 red blood cell (erythrocyte) count, per high power field 0.0 10*3/UL [facility] eosinophils as percent of blood leukocytes 1.1 % [facility] 3 neutrophils as percent of blood leukocytes 61.0 % [facility] - 3 Absolute Neutrophils 3.8 CELLS/UL [facility] 1.5 - 7.8 3 basophils as percent of blood leukocytes 0.8 % [facility] Absolute Basophils 0.1 CELLS/UL [facility] 0.0 - 0.2 3 monocytes as percent of blood leukocytes 7.7 % [facility] - 3 Absolute Monocytes 0.5 CELLS/UL [facility] 0.2 - 1.0 3 lymphocytes as percent of blood leukocytes 29.1 % [facility] - 3 Absolute Lymphocytes 1.8 CELLS/UL [facility] 0.9 - 3.9 3 mean platelet volume 10.8 (?) [facility] - 3 platelet count 193.0 THOUSAND/ UL [facility] 100.0 - 400.0 3 mean corpuscular hemoglobin concentration, RBC 32.1 G/DL [facility] 31.0 - 38.0 3 mean corpuscular hemoglobin, RBC 30.9 pg [facility] 25.0 - 35.0 3 mean corpuscular volume, RBC 96.1 fL [facility] 75.0 - 100.0 3 hematocrit, blood 44.2 % [facility] 35.0 - 55.0 3 hemoglobin, blood 14.2 g/dL [facility] 11.5 - 16.5 3 erythrocyte count, whole blood 4.6 MILLION/U L [facility] 3.5 - 5.5 3 magnesium, serum 2.0 mg/dL [facility] 1.6 - 2.6 HISTORY OF MEDICATION USE Medication Status Instructions Dates Provider Indications Com ments AMIODARONE HCL 200 MG ORAL TABLET active ONE TAB. DAILY 2 Aditya Gayle MD Stop Diltiazem XARELTO 20 MG ORAL TABLET active One tab. daily with evening meal Jono Dejesus LOVASTATIN 20 MG ORAL TABLET completed 1 tab by mouth daily - 2 Jono Dejesus ASPIRIN 81 MG ORAL TABLET completed ONE TAB. DAILY 2 - 2 Aditya Gayle MD ASPIRIN 325 MG ORAL TABLET completed one tab daily 1 - 3 Jim Norwood RN METOPROLOL SUCCINATE ER 50 MG ORAL TABLET EXTENDED RELEASE 24 HOUR completed one tab. daily 5 - 2 Jono Dejesus SOCIAL HISTORY Date Observation Value Provider social history reviewed E&M cherry dong - no changes required Aditya Gayle MD physical exercise, frequency, days per week no Jono Dejesus alcohol use, average drinks per day none recovering alcoholic Jono Dejesus caffeine use, averag e drinks per day no Jono Dejesus drug use none Jono wells smoking status Never smoker Jono James social history E&M Marital Statu s: Smoking History: P frandy has never smoked. Aditya Gayle MD social history reviewed E&M cherry dong - no changes required Aditya Gayle MD physical exercise, frequency, days per week no Jono Dejesus alcohol use, average drinks per day none recovering alcoholic Jono Dejesus caffeine use, averag e drinks per day no Jono Dejesus drug use none Jono wells smoking status Never smoker Jono James social history reviewed E&M reviewed Buzz Dumont MD social history reviewed E&M reviewed Jim Norwood RN drug use none Buzz Dumont MD social history reviewed E&M reviewed Buzz Dumont MD alcohol use, average drinks per day none recovering alcoholic Jim Norwood RN social history reviewed E&M reviewed Jim Norwood RN social history E&M Marital Status: Arvin celeste Jim Norwood RN social history reviewed E&M reviewed Jim Norwood RN physical exercise, frequency, days per week no [facility] caffeine use, averag e drinks per day no [facility] alcohol use, average drinks per day none [facility] smoking status Non-smoker [facility] MENTAL STATUS Date Observation Value Provider assessment of judgme nt and insight E&M Alert and oriented to time, place and person. Mood and affect are normal. Buzz Dumont MD assessment of judgme nt and insight E&M Alert and oriented to time, place and person. Mood and affect are normal. Jim Norwood RN assessment of judgme nt and insight E&M Alert and oriented to time, place and person. Mood and affect are normal. Buzz Dumont MD assessment of judgme nt and insight E&M Alert and oriented to time, place and person. Mood and affect are normal. Jim Norwood RN assessment of judgme nt and insight E&M Alert and oriented to time, place and person. Mood and affect are normal. Jim Norwood RN FAMILY HISTORY Family Member Condition Mother Negative FH of A S C V D INSURANCE PROVIDERS Payer name Policy type / Coverage type [employer] party ID [facility] [id number] [employer] (2) Medicaid [id number] TREATMENT PLAN Date Name Performer Cardiology: 6: Cholesterol: 243mg/dL LDL Cholesterol:123mg/dL HDL Cholesterol: 53mg/dL Triglyceride: 337mg/dL Aditya Baker Cardiology:Will atte mpt to get dental device. Otherwise, will schedule titration sleep study. Aditya Baker Cardiology:S/P succe ssful cardioverison. Will keep on Xarelto and Amiodarone for 3 months. His CHADs score is 0. Aditya [facility] Cardiology:The pt fina s admitted recently to [place] with new onset atrial fibrillation. Aditya [facility] Cardiology:The follo wing medications were removed from the medication list: Lovastatin 20 Mg Tabs (Lovastatin) ..... 1 tab by mouth daily Aditya [facility] Cardiology:BP today: 140/98 P rior BP: 127/64 (08/11/2010) The following medications were removed from the medication list: Aspirin 81 Mg Tabs (Aspirin) ..... One tab. daily Metoprolol Succinate 50 Mg Tb24 (Metoprolol succinate) ..... One tab. daily Aditya [facility] Cardiology [facility]:The pt fina s admitted recently to [place] with new onset atrial fibrillation. [facility] Cardiology:The pt fina s admitted recently to [place] with new onset atrial fibrillation. An attempt to perform MIGUEL guided cardioversion was attempted; however, due to swollen tonsils, MIGUEL was not possible. He's been treated with Xarelto and Cardizem. We will switch Cardizem to Amiodarone 200mg daily and schedule cardioversion. Aditya Baker follow up Buzz Dumont MD follow up: H is updated medication list for this problem includes: Metoprolol Tartrate 25 Mg Tabs (Metoprolol tartrate) ..... One tab. twice daily Aspirin 81 Mg Tabs (Aspirin) ..... One tab. daily BP today: 127/64 Prior BP: 130/89 (05/28/2010) [email or web address] Echo Findings: Test considered to be negative by ECG. Baseline echo was normal and post exercise echo showed expected changes. (01/26/2010) Buzz Dumont MD follow up: H is updated medication list for this problem includes: Metoprolol Tartrate 25 Mg Tabs (Metoprolol tartrate) ..... One tab. twice daily Aspirin 81 Mg Tabs (Aspirin) ..... One tab. daily BP today: 127/64 P rior BP: 130/89 (05/28/2010) Buzz Dumont MD follow up: H is updated medication list for this problem includes: Metoprolol Tartrate 25 Mg Tabs (Metoprolol tartrate) ..... One tab. twice daily Aspirin 81 Mg Tabs (Aspirin) ..... One tab. daily BP today: 127/64 Prior BP: 130/89 (05/28/2010) S tress Echo Findings: Test considered to be negative by ECG. Baseline echo was normal and post exercise echo showed expected changes. (01/26/2010) Buzz Dumont MD follow up: H is updated medication list for this problem includes: Toprol Xl 50 Mg [id number] (Metoprolol succinate) ..... 1 tab daily Aspirin 81 Mg Tabs (Aspirin) ..... One tab. daily BP today: 147/83 P rior BP: 129/68 (03/19/2010) Buzz Dumont MD follow up: H is updated medication list for this problem includes: Toprol Xl 50 Mg [id number] (Metoprolol succinate) ..... 1 tab daily Aspirin 81 Mg Tabs (Aspirin) ..... One tab. daily B P today: 147/83 Prior BP: 129/68 (03/19/2010) S tress Echo Findings: Test considered to be negative by ECG. Baseline echo was normal and post exercise echo showed expected changes. (01/26/2010) Buzz Dumont MD palpitations : T he following medications were removed from the medication list: Aspirin 325 Mg Tabs (Aspirin) ..... One tab daily His updated medication list for this problem includes: Toprol Xl 50 Mg [id number] (Metoprolol succinate) ..... 1 tab daily BP today: 129/68 Prior BP: 151/78 (02/03/2010) S tress Echo Findings: Test considered to be negative by ECG. Baseline echo was normal and post exercise echo showed expected changes. (01/26/2010) Mian Baker MD palpitations :check bmp and magnesium and check a 24 hr holter T he following medications were removed from the medication list: Aspirin 325 Mg Tabs (Aspirin) ..... One tab daily His updated medication list for this problem includes: Toprol Xl 50 Mg [id number] (Metoprolol succinate) ..... 1 tab daily BP today: 129/68 Prior BP: 151/78 (02/03/2010) S tress Echo Findings: Test considered to be negative by ECG. Baseline echo was normal and post exercise echo showed expected changes. (01/26/2010) Orders: E KG ([id number]) H olter Monitor 24 Hr ([id number]) B ASIC METABOLIC PANEL W/EGFR (17831) M AGNESIUM (622) Mian Baker MD palpitations : T he following medications were removed from the medication list: Aspirin 325 Mg Tabs (Aspirin) ..... One tab daily His updated medication list for this problem includes: Toprol Xl 50 Mg [id number] (Metoprolol succinate) ..... 1 tab daily BP today: 129/68 P rior BP: 151/78 (02/03/2010) Mian Baker MD palpitations Mian Baker MD Hosp follow up: B P today: 151/78 Prior BP: / () His updated medication list for this problem includes: Toprol Xl 50 Mg [id number] (Metoprolol succinate) ..... 1 tab daily BP today: 151/78 Prior BP: / () S tress Echo Findings: Test considered to be negative by ECG. Baseline echo was normal and post exercise echo showed expected changes. (01/26/2010) Buzz Dumont MD Hosp follow up: H is updated medication list for this problem includes: Toprol Xl 50 Mg [id number] (Metoprolol succinate) ..... 1 tab daily BP today: 151/78 Prior BP: / () S tress Echo Findings: Test considered to be negative by ECG. Baseline echo was normal and post exercise echo showed expected changes. (01/26/2010) Buzz Dumont MD Hosp follow up: H is updated medication list for this problem includes: Toprol Xl 50 Mg [id number] (Metoprolol succinate) ..... 1 tab daily BP today: 151/78 Buzz Dumont MD Hosp follow up: B P today: 151/78 Prior BP: / () Buzz Dumont MD Date Name MAGNESIUM CBC (INCLUDES DIFF/P LT) Sleep Study Home Cardioversion - GC Holter Monitor 24 Hr Holter Monitor 24 Hr HISTORY OF PROCEDURES Procedure Date Procedure Name Provider Procedure Notes S tatus Schedule Followup Aditya Gayle MD 3 months com pleted SNOMED-CT: 385980109 [id number] Current Medications Documented Aditya Gayle MD completed EKG Aditya Gayle MD completed SNOMED-CT: 471365896 [id number] Current Medications Documented Aditya Gayle MD completed EKG Mian Baker MD completed
--- NOTE | 2024-03-20 14:50 | ECG_ITS ---
Test Date: 2024-03-20 14:56:41 Measurements Intervals Miles Rate: 79 P: 0 ME: 0 QRS: 42 QRSD: 77 T: 8 QT: 302 QTc: 347 Interpretive Statements ATRIAL FLUTTER WITH NORMAL VENTRICULAR RESPONSE BASELINE ARTIFACT- I, II, III, AVR, AVL, AVF ABNORMAL ECG Compared to ECG 03/20/2024 12:23:06 HEART RATE IS DECREASED Electronically Signed On 03-20-2024 15:03:42 PARTS INTERPRETER by Trever Guaman D.O.
[2024-03-20 15:25] LABS: Troponin I < 0.012 ng/mL (0.000-0.034)
--- NOTE | 2024-03-20 16:19 | ADMGEN ---
This patient, Naif Yu, was admitted to IMU Room 214-01. Patient/family oriented to hospital policies and general routines including ID bracelet, bed and alarms, visiting hours, pain management, procedures, bathroom and other care routines, personal items, smoking policy, room service/diet, and visiting hours. Information on how to activate the Rapid Response Team has been discussed. Patient/Family are encouraged to report perceived risks to care and to ask questions if they do not understand what they are told or what they should do.
--- NOTE | 2024-03-20 16:25 | P.HP_ITS ---
H&P: HPI History of Present Illness Date/Time: 03/20/24 16:25 Chief Complaint: Palpitations. Narrative: This is a 48-year-old male with history of paroxysmal atrial fibrillation at least 10 years ago requiring cardioversion who presented to the emergency department for evaluation of palpitations. The patient provides the following history. He stopped drinking alcohol approximately 16 months ago and not long t hereafter he stopped taking his metoprolol as he was no longer having episodes of racing heart. The last couple of months he has had intermittent episodes of self-resolving palpitations, usually lasting only few minutes at a time. Yesterday evening he once again developed palpitations and this morning when he got up he was feeling lightheaded and short of breath with exertion. His heart rate has been ranging anywhere between the 80s to 160s and he decided to come in for evaluation. 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 He also denies syncope, near syncope, pleuritic pain, orthopnea, paroxysmal nocturnal dyspnea, lower extremity edema, nausea, vomiting, and sweats. He drinks quite a bit of caffeine, typically 800 to 1000 mg a day in the form of coffee and energy drinks. He cut that by half a couple of weeks ago when he started having the palpitations but that has not really made much of a difference. He previously wore CPAP for sleep apnea but that resolved after he loss over 100 lbs and he has not had any symptoms of that concern him for sleep apnea at this time. In the ED: He was in rapid atrial flutter on arrival with rates in the 150s. The remainder of his vital signs have been stable. CMP and CBC were pretty unremarkable. Initial troponin was normal. TSH was within normal limits. He received metoprolol tartrate 5 mg IV without much improvement and he was started on a diltiazem drip which seems to be helping his rate. He is being admitted in this setting for cardiology consultation. Review of Systems Review of Systems: 12 systems were reviewed and are negativ e except for as per HPI. [facility] Past Medical History Medical History (Updated 03/20/24 @ 20:29 by Yumiko Campos PA-C) Obstructive sleep apnea no longer on CPAP after a greater than 100 lb weight loss Paroxysmal atrial fibrillation Surgical History Surgical History (Updated 03/20/24 @ 20:29 by Yumiko Campos PA-C) History of cardioversion History of lumbar surgery Family History Family History Grandparent A-fib Diabetes mellitus Mother Chronic obstructive pulmonary disease Diabetes mellitus Hypertension Grandparent Chronic obstructive pulmonary disease Cervical cancer Grandparent Chronic obstructive pulmonary disease Other Lung cancer Social History Social History Social History: Surrogate medical decision maker: shweta Kelly ([phone]). Code status: Full code. Smoking status: Never smoker Second hand tobacco smoke exposure: Yes Alcohol intake: former Substance use: current Substance use type: marijuana Do You Feel Safe in your Home?: Yes Lack of Transportation: No Lack of Food: Never True Current Housing: I Have Housing Concerned About Future Housing: No Difficulty Paying Gas/Electric Bills: No Difficulty Paying for Meds: No Currently Unemployed: No Education: High School Diploma/GED Difficulty w/ Childcare or Family Care: No Spiritual care concerns: No Meds Home Medications and Allergies Home Medications ?Medication ?Instructions ?Recorded ?Confirmed ?Type testosterone cypionate 200 mg/mL 80 mg subcut .twice weekly 03/20/24 03/20/24 History intramuscular oil Allergies Allergy/AdvReac Type Severity Reaction Status Date / Time No Known Allergies Allergy Verified 03/20/24 12:34 Vital Signs Vital Signs - 24 hr 03/20/24 12:11 03/20/24 12:25 03/20/24 12:37 Temperature 98.0 F 98.9 F Pulse Rate 166 H 162 H 162 H Respiratory Rate 18 14 Blood Pressure 141/92 H 127/91 H Pulse Oximetry 100 100 Oxygen Delivery Room Air Room Air 03/20/24 12:40 03/20/24 13:04 03/20/24 13:15 Temperature Pulse Rate 132 H 103 H 85 Respiratory Rate 15 Blood Pressure 127/91 H 105/70 Pulse Oximetry 97 Oxygen Delivery 03/20/24 13:16 03/20/24 13:24 03/20/24 13:30 Temperature Pulse Rate 79 78 104 H Respiratory Rate 17 14 16 Blood Pressure 105/70 Pulse Oximetry 98 98 98 Oxygen Delivery 03/20/24 13:31 03/20/24 13:45 03/20/24 14:00 Temperature Pulse Rate 105 H 100 79 Respiratory Rate 20 15 14 Blood Pressure 101/71 Pulse Oximetry 98 98 98 Oxygen Delivery 03/20/24 14:01 03/20/24 14:15 03/20/24 14:30 Temperature Pulse Rate 92 96 87 Respiratory Rate 14 17 20 Blood Pressure 106/82 Pulse Oximetry 98 97 98 Oxygen Delivery 03/20/24 14:31 Temperature Pulse Rate 79 Respiratory Rate 16 Blood Pressure 106/87 Pulse Oximetry 98 Oxygen Delivery Exam Narrative: General: Well-developed, nontoxic-appearing male sitting up in bed in no acute distress. Weight: 76.4 kg. BMI: 26.4. HEENT: PERRL, EOMI. Sclera anicteric. Oral mucosa moist. Oropharynx clear. Neck: Supple. Respiratory: Lungs are clear to auscultation bilaterally. Cardiovascular: Regular rate and rhythm with S1-S2. Monitor shows atrial flutter with rates in the 80s. Gastrointestinal: Abdomen is soft, nontender, and nondistended with positive bowel sounds. Skin: Warm and dry. No rash or lesions on limited exam. Extremities: No cyanosis, clubbing, or edema. Radial and pedal pulses intact. Neurological: Alert. Cranial nerves 2-12 are grossly intact. No gross focal deficits to casual conversation. Psychiatric: Pleasant and cooperative with normal mood and affect. Judgment and insight intact. H&P: Results Labs Labs: Short CBC 03/20/24 Range/Units 12:37 WBC 8.9 (4.5-10.0) K/mm3 Hgb 15.8 (14.0-18.0) g/dL Hct 47.0 (42.0-52.0) % Plt Count 192 (150-375) k/mm3 [facility] 03/20/24 12:37 Sodium 137 Potassium 4.5 Chloride 101 Carbon Dioxide 27 BUN 18 Creatinine 0.96 Glucose 103 Calcium 9.7 Cardiac Enzymes 03/20/24 03/20/24 Range/Units 12:37 14:59 Troponin I < 0.012 < 0.012 (0.000-0.034) ng/mL Liver Function 03/20/24 Range/Units 12:37 Total Bilirubin 1.0 (0.2-1.3) mg/dL AST 48 (17-59) U/L ALT 49 (6-50) U/L Alkaline Phosphatase 49 (38-126) U/L Albumin 4.6 (3.5-5.1) g/dL Assessment and Plan Assessment and plan (1) Atrial flutter with rapid ventricular response: Code(s): I48.92 - Unspecified atrial flutter Status: Acute (2) Obstructive sleep apnea: Code(s): G47.33 - Obstructive sleep apnea (adult) (pediatric) Status: Acute Plan The patient presented to the emergency department for evaluations of palpitations since last evening as detailed in HPI. Labs, imaging, EKG, and all reports were personally reviewed. He was in rapid atrial flutter on arrival with rates in the 150s and he is currently on a Cardizem drip with improvement in his rate. [id number] score is low thus will hold on anticoagulation pending Cardiology input. Echocardiogram ordered as well as an ApneaLink as he is no longer using his CPAP after significant weight loss. TSH is within normal limits. We discussed the importance of cutting back significantly on his caffeine intake. Blood pressures are stable. His home medications will be reviewed and resumed as appropriate. Findings and treatment plan were discussed with the patient. Questions were solicited and answered to satisfaction. The patient's medical management will be taken over by the hospitalist team in a.m. Quality VTE Prophylaxis VTE prophylaxis: pharmacologic ordered Hospitalist [facility] Advance Care Plan I have confirmed that the patient's Advanced Care Plan is present, code status is documented, or surrogate decision maker is listed in patient medical record.: Yes Medication Reconciliation I have utilized all available resources to obtain, update and review the patients current medications (includes all prescriptions, OTC, herbals, cannabis, and nutritional supplements).: Yes
--- OUTSIDE RECORDS SUMMARY | 2024-03-20 17:12 | XMS_ITS | CONTINUITY OF CARE DOCUMENT ---
Author Name anna castillo Address Unknown Organization [facility] Address [address] [place] [address] Phone [phone] Care Team Providers Care Academic Administrator Name Role Phone Aditya Gayle MD Unavailable [phone] Zander Cerna MD Unavailable Zander Cerna MD Unavailable PROBLEMS Condition Status Date Provider Notes ETOH active Amber Harry ATRIAL FIB LONE ON BETA BLOC KER NO COUMADIN active Buzz Dumont MD DIABETES MELLITUS active - Buzz Dumont MD PALPITATIONS-03/27 HOLTER SR- SB HR 44-120 active ? Jim Norwood RN PIERCE active Aditya Gayle MD Hypercholesterolemia active Aditya Gayle MD SOB active Aditya [facility] ENCOUNTERS Date Type Provider Location Encounter Diag nosis - In-person encounter Office Visit Aditya Gayle MD [place] [facility] - In-person encounter Office Visit Aditya Gayle MD [place] [facility] OSAHypercholesterolemiaSOB - In-person encounter Office Visit Buzz Dumont MD [place] [facility] - In-person encounter Office Visit Krystian Vincent MD [place] [facility] - In-person encounter Office Visit Buzz Dumont MD [place] [facility] - In-person encounter Office Visit Mian Baker MD [place] [facility] PALPITATIONS-03/27 HOLTER SR-SB HR 44-120 - In-person encounter Office Visit Buzz Dumont MD [place] [facility] ATRIAL FIB LONE ON BETA RJ [...] Location 1 triglyceride, serum, fasting 337 mg/dL [facility] 1 HDL cholesterol, serum 53 mg/dL [facility] 1 LDL cholesterol, serum 123 mg/dL [facility] 1 cholesterol, serum 243 mg/dL [facility] 3 red blood cell distribution width, size density 45.[address] immature granulocytes, percentage of total cells, blood 0.3 % [facility] - 3 nucleated red blood cells as percent of blood leukocytes 0.0 % [facility] - 3 red blood cell (erythrocyte) count, per high power field 0.0 10*3/UL [facility] - 3 eosinophils as percent of blood leukocytes 1.1 % [facility] 3 neutrophils as percent of blood leukocytes 61.0 % [facility] - 3 Absolute Neutrophils 3.8 CELLS/UL [facility] 1.5 - 7.8 3 basophils as percent of blood leukocytes 0.8 % [facility] 3 Absolute Basophils 0.1 CELLS/UL [facility] 0.0 - 0.2 3 monocytes as percent of blood leukocytes 7.7 % [facility] - 3 Absolute Monocytes 0.5 CELLS/UL [facility] 0.2 - 1.0 3 lymphocytes as percent of blood leukocytes 29.1 % [facility] - 3 Absolute Lymphocytes 1.8 CELLS/UL [facility] 0.9 - 3.9 3 mean platelet volume 10.8 (?) [facility] - 3 platelet count 193.0 THOUSAND/ UL [...] per day none [facility] smoking status Non-smoker [facility] MENTAL STATUS Date Observation Value Provider assessment [...] Payer name Policy type / Coverage type [place] red republican ID [facility] [id number] [employer] (2) Medicaid [id number] TREATMENT PLAN Date Name Performer Cardiology: 6: Cholesterol: 243mg/dL LDL Cholesterol:123mg/dL HDL Cholesterol: 53mg/dL Triglyceride: 337mg/dL Aditya Baker Cardiology:Will atte mpt to get dental device. Otherwise, will schedule titration sleep study. Aditya Baker Cardiology:S/P succe ssful cardioverison. Will keep on Xarelto and Amiodarone for 3 months. His CHADs score is 0. Aditya [facility] Cardiology:The pt fina s admitted recently to [place] with new onset atrial fibrillation. Aditya [facility] Cardiology:The follo wing medications were removed from the medication list: Lovastatin 20 Mg Tabs (Lovastatin) ..... 1 tab by mouth daily Aditya [facility] Cardiology:BP today: 140/98 P rior BP: 127/64 (08/11/2010) The following medications were removed from the medication list: Aspirin 81 Mg Tabs (Aspirin) ..... One tab. daily Metoprolol Succinate 50 Mg Tb24 (Metoprolol succinate) ..... One tab. daily Aditya [facility] Cardiology [facility] Card[facility]:The pt fina s admitted recently to [place] with new onset atrial fibrillation. [facility] Cardiology:The pt fina s admitted recently to [place] with new onset atrial fibrillation. An attempt [...] today: 127/64 Prior BP: 130/89 (05/28/2010) S [facility] Echo Findings: Test considered to be negative [...] this problem includes: Toprol Xl 50 Mg Zz02j-dya (Metoprolol succinate) ..... 1 tab daily Aspirin 81 Mg Tabs (Aspirin) ..... One tab. daily BP today: 147/83 P rior BP: 129/68 (03/19/2010) Buzz Dumont MD follow up: H is updated medication list for this problem includes: Toprol Xl 50 Mg Yw98z-qaw (Metoprolol succinate) ..... 1 tab daily Aspirin [...] this problem includes: Toprol Xl 50 Mg Ur27f-bzd (Metoprolol succinate) ..... 1 tab daily BP [...] this problem includes: Toprol Xl 50 Mg Je43v-hcd (Metoprolol succinate) ..... 1 tab daily BP today: 129/68 Prior BP: 151/78 (02/03/2010) S tress Echo Findings: Test considered to be negative by ECG. Baseline echo was normal and post exercise echo showed expected changes. (01/26/2010) Orders: E KG (CPT-52895) H olter Monitor 24 Hr (CPT-91430) B ASIC METABOLIC PANEL W/EGFR (55051) M AGNESIUM (622) Mian Baker MD palpitations : T he following medications were removed from the medication list: Aspirin 325 Mg Tabs (Aspirin) ..... One tab daily His updated medication list for this problem includes: Toprol Xl 50 Mg Sb40k-ogu (Metoprolol succinate) ..... 1 tab daily BP today: 129/68 P rior BP: 151/78 (02/03/2010) Mian Baker MD palpitations Mian Baker MD Hosp follow up: B P today: 151/78 Prior BP: / () His updated medication list for this problem includes: Toprol Xl 50 Mg Ng28l-cgz (Metoprolol succinate) ..... 1 tab daily BP today: 151/78 Prior BP: / () S tress Echo Findings: Test considered to be negative by ECG. Baseline echo was normal and post exercise echo showed expected changes. (01/26/2010) Buzz Dumont MD Hosp follow up: H is updated medication list for this problem includes: Toprol Xl 50 Mg Ur69d-bwa (Metoprolol succinate) ..... 1 tab daily BP today: 151/78 Prior BP: / () S tress Echo Findings: Test considered to be negative by ECG. Baseline echo was normal and post exercise echo showed expected changes. (01/26/2010) Buzz Dumont MD Hosp follow up: H is updated medication list for this problem includes: Toprol Xl 50 Mg Ag10g-ync (Metoprolol succinate) ..... 1 tab daily BP [...] Gayle MD 3 months com pleted SNOMED-CT: [id number] [id number] Current Medications Documented Aditya Gayle MD completed EKG Aditya Gayle MD completed SNOMED-CT: [id number] Current Medications Documented Aditya Gayle MD completed EKG Mian Baker MD completed
--- OUTSIDE RECORDS SUMMARY | 2024-03-20 17:13 | XMS_ITS | CONTINUITY OF CARE DOCUMENT ---
Author Name anna castillo Address Unknown Organization [facility] Address [address] [place] [address] Phone [phone] Care Team Providers Care Admission Nurse Name Role Phone Aditya Gayle MD Unavailable [phone] Zander Cerna MD Unavailable Zander Cerna MD Unavailable [phone] PROBLEMS Condition Status Date Provider Notes ETOH active Amber Harry ATRIAL FIB LONE ON BETA BLOC KER NO COUMADIN active Buzz Dumont MD DIABETES MELLITUS active - Buzz Dumont MD PALPITATIONS-03/27 HOLTER SR- SB HR 44-120 active ? Jim Norwood RN PIERCE active Aditya Gayle MD Hypercholesterolemia active Aditya Gayle MD SOB active Aditya [facility] ENCOUNTERS Date Type Provider Location Encounter Diag nosis - In-person encounter Office Visit Aditya [facility] - In-person encounter Office Visit Aditya Gayle MD [facility] OSAHypercholesterolemiaSOB - In-person encounter Office Visit Buzz Dumont MD [facility] - In-person encounter Office Visit Krystian Vincent MD [facility] - In-person encounter Office Visit Buzz Dumont MD [facility] - In-person encounter Office Visit Mian Baker MD [facility] PALPITATIONS-03/27 HOLTER SR-SB HR 44-120 - In-person encounter Office Visit Buzz Dumont MD [facility] ATRIAL FIB LONE ON BETA RJ NO COUMADINDIABETES MELLITUS VITAL SIGNS Date Observation Value Provider blood pressure, diastolic 82 mm[Hg] Adis Christiano Dejesus blood pressure, systolic 146 mm[Hg] Bing Wrightamparo AdamsDejesus pulse rate 59 /min Jono Mckinney vestatavo oxygen saturation, oximetry 98 % Jnoo Dejesus respiratory rate E&M 16 /min Renny Dejesus Body Mass Index (Ratio) 28.09 kg/m2 Alexandra Dejesus weight E&M 179.4 [lb_av] Jono curtis blood pressure, diastolic 98 mm[Hg] Adis papaLavernlisa Dejesus blood pressure, systolic 140 mm[Hg] Bing Dejesus pulse rate 92 /min Jono Mckinney vestatavo oxygen saturation, oximetry 98 % Jono Dejseus respiratory rate E&M 16 /min Renny Dejesus [...] Location 1 triglyceride, serum, fasting 337 mg/dL [facility] 1 HDL cholesterol, serum 53 mg/dL [facility] 1 LDL cholesterol, serum 123 mg/dL [facility] 1 cholesterol, serum 243 mg/dL [facility] 3 red blood cell distribution width, size density 45.6 fL [facility] immature granulocytes, percentage of total cells, blood 0.3 % [facility] - 3 nucleated red blood cells as percent of blood leukocytes 0.0 % [facility] - 3 red blood cell (erythrocyte) count, per high power field 0.0 10*3/UL [facility] eosinophils as percent of blood leukocytes 1.1 % [facility] - 3 neutrophils as percent of blood leukocytes 61.0 % [facility] - 3 Absolute Neutrophils 3.8 CELLS/UL [facility] 1.5 - 7.8 3 basophils as percent of blood leukocytes 0.8 % [facility] Absolute Basophils 0.1 CELLS/UL [facility] 0.0 - 0.2 3 monocytes as percent of blood leukocytes 7.7 % [facility] - 3 Absolute Monocytes 0.5 CELLS/UL [facility] 0.2 - 1.0 3 lymphocytes as percent of blood leukocytes 29.1 % [facility] - 3 Absolute Lymphocytes 1.8 CELLS/UL [facility] 0.9 - 3.9 3 mean platelet volume 10.8 (?) [facility] - 3 platelet count 193.0 THOUSAND/ [...] per day none [facility] smoking status Non-smoker [facility] MENTAL STATUS Date Observation Value Provider [...] Payer name Policy type / Coverage type [place] red green party ID [facility] [id number] [employer] (2) Medicaid [id number] TREATMENT PLAN Date Name Performer Cardiology: 6: Cholesterol: 243mg/dL LDL Cholesterol:123mg/dL HDL Cholesterol: 53mg/dL Triglyceride: 337mg/dL Aditya Baker Cardiology:Will atte mpt to get dental device. Otherwise, will schedule titration sleep study. Aditya Baker Cardiology:S/P succe ssful cardioverison. Will keep on Xarelto and Amiodarone for 3 months. His CHADs score is 0. Aditya [facility] Cardiology:The pt fina s admitted recently to [place] with new onset atrial fibrillation. Aditya [facility] Cardiology:The follo wing medications were removed from the medication list: Lovastatin 20 Mg Tabs (Lovastatin) ..... 1 tab by mouth daily Aditya [facility] Cardiology:BP today: 140/98 P rior BP: 127/64 (08/11/2010) The following medications were removed from the medication list: Aspirin 81 Mg Tabs (Aspirin) ..... One tab. daily Metoprolol Succinate 50 Mg Tb24 (Metoprolol succinate) ..... One tab. daily Aditya [facility] Cardiology [facility] Card[facility]:The pt fina s admitted recently to [place] with new onset atrial fibrillation. [facility] Cardiology:The pt fina s admitted recently to [place] with new onset atrial fibrillation. An attempt [...] today: 127/64 Prior BP: 130/89 (05/28/2010) S [facility] Echo Findings: Test considered to be negative [...] this problem includes: Toprol Xl 50 Mg Sp89q-mml (Metoprolol succinate) ..... 1 tab daily Aspirin 81 Mg Tabs (Aspirin) ..... One tab. daily BP today: 147/83 P rior BP: 129/68 (03/19/2010) Buzz Dumont MD follow up: H is updated medication list for this problem includes: Toprol Xl 50 Mg Bv38l-hpm (Metoprolol succinate) ..... 1 tab daily Aspirin [...] this problem includes: Toprol Xl 50 Mg Is11s-qkn (Metoprolol succinate) ..... 1 tab daily BP [...] this problem includes: Toprol Xl 50 Mg Uv29a-imm (Metoprolol succinate) ..... 1 tab daily BP today: 129/68 Prior BP: 151/78 (02/03/2010) S tress Echo Findings: Test considered to be negative by ECG. Baseline echo was normal and post exercise echo showed expected changes. (01/26/2010) Orders: E KG (CPT-[id number]) H olter Monitor 24 Hr (CPT-33399) B ASIC METABOLIC PANEL W/EGFR (50348) M AGNESIUM (622) Mian Baker MD palpitations : T he following medications were removed from the medication list: Aspirin 325 Mg Tabs (Aspirin) ..... One tab daily His updated medication list for this problem includes: Toprol Xl 50 Mg Yv59c-uac (Metoprolol succinate) ..... 1 tab daily BP today: 129/68 P rior BP: 151/78 (02/03/2010) Mian Baker MD palpitations Mian Baker MD Hosp follow up: B P today: 151/78 Prior BP: / () His updated medication list for this problem includes: Toprol Xl 50 Mg Zv46g-kfq (Metoprolol succinate) ..... 1 tab daily BP today: 151/78 Prior BP: / () S tress Echo Findings: Test considered to be negative by ECG. Baseline echo was normal and post exercise echo showed expected changes. (01/26/2010) Buzz Dumont MD Hosp follow up: H is updated medication list for this problem includes: Toprol Xl 50 Mg Ef53y-azd (Metoprolol succinate) ..... 1 tab daily BP today: 151/78 Prior BP: / () S tress Echo Findings: Test considered to be negative by ECG. Baseline echo was normal and post exercise echo showed expected changes. (01/26/2010) Buzz Dumont MD Hosp follow up: H is updated medication list for this problem includes: Toprol Xl 50 Mg Ou31j-vmy (Metoprolol succinate) ..... 1 tab daily BP [...] Gayle MD 3 months com pleted SNOMED-CT: [id number] Current Medications Documented Aditya Gayle MD completed EKG Aditya Gayle MD completed SNOMED-CT: [id number] Current Medications Documented Aditya Galye MD completed EKG Mian Baker MD completed
--- NOTE | 2024-03-20 18:18 | ECG_ITS ---
Test Date: 2024-03-20 18:21:47 Measurements Intervals [place] Rate: 80 P: 0 KS: 0 QRS: 56 QRSD: 88 T: -13 QT: 347 QTc: 402 Interpretive Statements ATRIAL FLUTTER WITH NORMAL VENTRICULAR RESPONSE CANNOT R/O SEPTAL INFARCT, AGE INDETERMINATE BASELINE ARTIFACT- I, III, AVR, AVL, AVF ABNORMAL ECG Compared to ECG 03/20/2024 14:56:41 NO SIGNIFICANT CHANGE Electronically Signed On 03-20-2024 18:36:56 CIRCUIT DESIGN ENGINEER by Trever Guaman D.O.
[2024-03-20 18:31] LABS: Barbiturate Screen Urine Negative (Negative); Benzodiazepines Screen Urine Negative (Negative)
[2024-03-20 19:01] LABS: Amphetamine Screen Urine Negative (Negative); Cannabinoid Screen Urine Negative (Negative); Cocaine Screen Urine Negative (Negative); Methadone Screen Urine Negative (Negative); Opiate Screen Urine Negative (Negative); Phencyclidine Screen Urine Negative (Negative)
[2024-03-20 19:30] LABS: Troponin I < 0.012 ng/mL (0.000-0.034)
[2024-03-20] MEDS: ACETAMINOPHEN 325 MG TABLET 650 MG PO (20:34)
[2024-03-21] VITALS (13 sets, daily range): BP systolic 102–122; BP diastolic 66–76; PULSE 52–86; RESP 12–18; TEMP 36.5–37; O2SAT 96–99
--- NOTE | 2024-03-21 | ECHO_ITS ---
Patient Info Name: Naif Yu Age: 48 years : 1975 Gender: Male Ht: 67 in Wt: 161 lbs BSA: 1.87 m2 HR: 66 bpm BP: 102 / 66 mmHg Heart Rhythm: Sinus Rhythm Technical Quality: Good Exam Date: 03/21/2024 12:36 PM Exam Location: Echo Lab Exam Room: [facility] Patient Status: Inpatient Admit Date: 03/20/2024 Staff Ordering Physician: Paul Johnson MD Groundsman: Yary Erickson RDCS Attending Provider: Alesha Sheikh MD Exam Type: CA echo doppler color flow Study Info Indications - New onset afib Complete two-dimensional, color flow and Doppler transthoracic echocardiogram is performed. Summary 1. Complete two-dimensional, color flow and Doppler transthoracic echocardiogram is performed. 2. Left ventricular chamber dimension is normal. 3. Left ventricular systolic function is normal, estimated at 60-65%. 4. There is no increased left ventricular wall thickness. 5. The left ventricular diastolic function is normal. 6. There is mild mitral valve regurgitation. 7. There is mild tricuspid valve regurgitation. 8. Moderate pulmonary hypertension, estimated pulmonary arterial systolic pressure is 50 mmHg. 9. There is mild pulmonic regurgitation. Left Ventricle Left ventricular chamber dimension is normal. Left ventricular systolic function is normal, estimated at 60-65%. There is no increased left ventricular wall thickness. The left ventricular diastolic function is normal. Right Ventricle Right ventricular chamber dimension is normal. Right ventricular systolic function is normal. Left Atria Left atrial chamber dimension is normal. Right Atria Right atrial chamber dimension is normal. Atrial Septum Intact interatrial septum visualized by color flow imaging. Aortic Valve The aortic valve is trileaflet. There is mild aortic valve sclerosis. There is no aortic valve stenosis. There is trace aortic valve regurgitation. Pulmonic Valve The pulmonic valve is normal. There is no pulmonic valve stenosis. There is mild pulmonic regurgitation. Mitral Valve The mitral valve has normal leaflets. There is no mitral valve stenosis. There is mild mitral valve regurgitation. Tricuspid Valve The tricuspid valve leaflets are normal. There is no significant tricuspid valve stenosis. There is mild tricuspid valve regurgitation. Moderate pulmonary hypertension, estimated pulmonary arterial systolic pressure is 50 mmHg. Pericardium/Pleural The pericardium appears normal. There is no pericardial effusion. Inferior Vena Cava Normal inferior vena cava with >50% collapse upon inspiration consistent with normal right atrial pressure, 5 mmHg. Aorta The aortic root size at the sinus of Valsalva is normal. Left Ventricular Outflow Tract Name Value Normal LVOT 2D LVOT Diameter 2.4 cm LVOT Doppler LVOT Peak Gradient 4 mmHg LVOT Mean Gradient 2 mmHg LVOT VTI 17 cm LVOT VTI/AV VTI Ratio 0.8 LVOT Stroke Volume 77 ml LVOT CO 6.7 l/min LVOT CI 3.6 l/min/m2 Pulmonic Valve Name Value Normal PV Doppler PV Peak Gradient 6 mmHg PV Regurgitation Doppler IL Peak End Diastolic Velocity 64 cm/s Mitral Valve Name Value Normal MV Doppler MV Peak Gradient 2 mmHg MV Mean Gradient 1 mmHg MV Decel [place] 560 cm/s2 MV PHT 48 ms MV Area (PHT) 4.6 cm2 4.0-5.0 MV Area (Cont Eq VTI) 4.7 cm2 MV Diastolic Function MV E Peak Velocity 93 cm/s MV A Peak Velocity 66 cm/s MV E/A 1.4 MV Decel Time 166 ms MV Annular TDI MV E/e' (Septal) 9.9 <=8.0 MV E/e' (Lateral) 7.0 <=8.0 MV E/e' (Average) 8.4 Tricuspid Valve Name Value Normal TV Regurgitation Doppler TR Peak Velocity 337 cm/s TR Peak Gradient 40 mmHg Estimated PAP/RSVP RA Pressure 5 mmHg <=5 PA Systolic Pressure 50 mmHg <36 RV Systolic Pressure 50 mmHg <36 Aortic Valve Name Value Normal AV Doppler AV Peak Velocity 148 cm/s AV Peak Gradient 9 mmHg AV Mean Gradient 5 mmHg AV VTI 23 cm AV Area (Cont Eq VTI) 3.4 cm2 >=3.0 AV Area (Cont Eq Sergei) 3.1 cm2 AV Regurgitation 2D LVOT Area 4.5 cm2 Ventricles Name Value Normal LV Dimensions 2D/MM IVS Diastolic Thickness (2D) 0.8 cm 0.6-1.0 LVID Diastole (2D) 4.8 cm 4.2-5.8 LVIW Diastolic Thickness (2D) 0.8 cm 0.6-1.0 LVID Systole (2D) 3.1 cm 2.5-4.0 LVOT Diameter 2.4 cm LV Mass (2D Cubed) 126.40 g 88.00-224.00 LV Mass Index (2D Cubed) 68 g/m2 49-115 Relative Wall Thickness (2D) 0.34 LV Fractional Shortening/Ejection Fraction 2D/MM LV Fractional Shortening (2D) 35 % 25-43 LV EF (2D Teicholz) 64 % 52-72 LV Diastolic Volume (4C MOD) 122 ml LV EF (4C MOD) 52 % LV Diastolic Volume (2C MOD) 89 ml LV EF (2C MOD) 51 % LV Diastolic Volume (BP MOD) 112 ml 62-150 LV Diastolic Volume Index (BP MOD) 60 ml/m2 34-74 LV Systolic Volume (BP MOD) 51 ml 21-61 LV Systolic Volume Index (BP MOD) 27 ml/m2 11-31 LV EF (BP MOD) 54 % 52-72 LV Diastolic Length (4C) 8.8 cm LV Systolic Length (4C) 7.7 cm LV Stroke Volume (4C MOD) 63 ml LV CO (BP MOD) 5.2 l/min LV CI (BP MOD) 2.8 l/min/m2 Atria Name Value Normal LA Dimensions LA Volume (4C A-L) 48 ml RA Dimensions RA Area (4C) 16.2 cm2 <=18.0 Report Signatures
--- NOTE | 2024-03-21 02:10 | ECG_ITS ---
Test Date: 2024-03-21 02:21:48 Measurements Intervals [place] Rate: 58 P: 33 SD: 148 QRS: 46 QRSD: 80 T: 21 QT: 387 QTc: 382 Interpretive Statements SINUS BRADYCARDIA ST ELEVATION IN ANTEROLAT/HIGH LAT LEADS- PROBABLY EARLY REPOLARIZATION BORDERLINE ECG Compared to ECG 03/20/2024 18:21:47 Early repolarization now present Atrial flutter no longer present Electronically Signed On 03-21-2024 07:11:15 DUPLICATOR PUNCH OPERATOR by Trever Guaman D.O.
--- NOTE | 2024-03-21 03:18 | PCRCNOTE ---
Patient refused apnea link stating he has already been diagnosed with sleep apnea. Pt feels that since he lost so much weight, he doesn't have to wear his cpap and feels fine without it.
[2024-03-21 05:47] LABS: Cholesterol 184 mg/dL (0-200); HDL Direct 39 mg/dL; Triglycerides 90 mg/dL (<150)
[2024-03-21 05:49] LABS: Anion Gap 6 mmol/L (4-12); Blood Urea Nitrogen 16 mg/dL (9-20); Calcium 8.9 mg/dL (8.4-10.2); Carbon Dioxide 30 mmol/L (22-30); Chloride 102 mmol/L (98-107); Estimated CRCL calculation 76 ml/min; Estimated Glomerular Filt Rate > 60; Glucose 94 mg/dL (65-110); Magnesium 1.8 mg/dL (1.6-2.3); Potassium 4.8 mmol/L (3.4-5.0); Sodium 138 mmol/L (137-145)
[2024-03-21 05:58] LABS: LDL Cholesterol Direct 117 mg/dL
[2024-03-21] MEDS: ENOXAPARIN 40 MG/0.4 ML SYRINGE SUB-Q (08:16)
[2024-03-21] MEDS: METOPROLOL TARTRATE 12.5 MG TABLET PO (09:26)
--- NOTE | 2024-03-21 12:57 | P.CONCA_ITS ---
Assessment and Plan Assessment and plan (1) Atrial flutter with rapid ventricular response: Code(s): I48.92 - Unspecified atrial flutter Status: Acute Assessment and Plan: Patient is atrial flutter with rapid ventricular response. He does have sleep apnea but not being treated this point. Needs an outpatient formal sleep study especially since he has lost weight to see what his current need for CPAP R. will check a TSH and free T4 level of not already performed. Will resume low- dose metoprolol still utilize metoprolol succinate 12.5 mg p.o. daily. 2D echocardiogram Doppler is ordered and pending. He is advised to avoid caffeine or limit caffeine use, avoid chocolate, avoid Sudafed and similar compounds limits stress as much as possible. He has a chads Vasc score of at most 1 with borderline high blood pressure. Continue aspirin 81 mg daily. Stroke risk is lower least at this point. (2) Obstructive sleep apnea: Code(s): G47.33 - Obstructive sleep apnea (adult) (pediatric) Status: Acute Assessment and Plan: Needs re-evaluation (3) History of alcohol abuse: Code(s): F10.11 - Alcohol abuse, in remission Status: Acute Assessment and Plan: Congratulated on avoiding alcohol History of Present Illness History of Present Illness Consult date/time: 03/21/24 12:57 Requesting physician: Paul Johnson MD Consult reason: atrial fibrillation Reason For Visit: Afib with RVR Narrative: Reason consultation atrial flutter with rapid ventricular response Date of service 03/21/2024 Requesting provider: Dr. Johnson History: Patient is a 48-year-old male who has formally seen Dr. Whalen for atrial fibrillation. Does have an alcohol abuse history but has been sober for couple of years. He has history of atrial fibrillation and has had cardioversion in the past. He does have his history of sleep apnea also but has not been using his CPAP because he has lost weight. He started to have some palpitations a couple months ago. Usually last for couple seconds. About a month ago he had 1 night where he went into a more rapid sustained heart rate lasting couple of hours. He went to sleep and he woke up in his symptoms were resolved. Two weeks ago he had another episode that lasted for several hours. And then Tuesday at 8:00 p.m. which is 2 days ago he had another recurrence of his palpitations. This time though his symptoms did not resolve and after 12 hours of tachycardia and some lightheadedness with some shortness of breath he decided to come to the hospital for further workup and evaluation. He was found to be in atrial flutter with rapid ventricular response. He denied any chest pain. Had no syncope, paroxysmal nocturnal dyspnea, orthopnea, edema. He was started on medications to help slow his heart rate including diltiazem and has since converted back to sinus rhythm. Currently feels a little foggy in his head but otherwise is without complaint. Review of Systems 2 Review of Systems: All systems reviewed & are unremarkable except as noted in HPI and below Constitutional: Constitutional: Denies body ache(s) Eyes: Eyes: Denies blurry vision ENT: Reports Normal hearing present Cardiovascular: Cardiovascular: Denies chest pain and Reports palpitations Respiratory: Respiratory: Denies chest congestion Gastrointestinal: Gastrointestinal: Denies abdominal pain Genitourinary: Genitourinary: Denies hematuria Musculoskeletal: Musculoskeletal: Reports back pain Integumentary/Breasts: Skin/Breast: Denies dry skin Neurologic: Denies Abnormal speech present Psychiatric: Psychiatric: Denies behavioral changes Endocrine: Endocrine: Denies excessive sweating Hematologic/Lymphatic: Hematologic/Lymphatic: Denies easy bleeding Allergic/Immunologic: Allergic/Immunologic: Denies GI upset with certain foods PMFSH Past Medical History Medical History (Updated 03/21/24 @ 13:03 by Stewart Kim MD) Obstructive sleep apnea no longer on CPAP after a greater than 100 lb weight loss Paroxysmal atrial fibrillation Surgical History Surgical History (Updated 03/20/24 @ 20:29 by Yumiko Campos PA-C) History of cardioversion History of lumbar surgery Family History Family History Grandparent A-fib Diabetes mellitus Mother Chronic obstructive pulmonary disease Diabetes mellitus Hypertension Grandparent Chronic obstructive pulmonary disease Cervical cancer Grandparent Chronic obstructive pulmonary disease Other Lung cancer Social History Social History Social History: Surrogate medical decision maker: shweta Kelly ([phone]). Code status: Full code. Smoking status: Never smoker Second hand tobacco smoke exposure: Yes Alcohol intake: former Substance use: current Substance use type: marijuana Do You Feel Safe in your Home?: Yes Lack of Transportation: No Lack of Food: Never True Current Housing: I Have Housing Concerned About Future Housing: No Difficulty Paying Gas/Electric Bills: No Difficulty Paying for Meds: No Currently Unemployed: No Education: High School Diploma/GED Difficulty w/ Childcare or Family Care: No Spiritual care concerns: No Meds Home Medications and Allergies Home Medications ?Medication ?Instructions ?Recorded ?Confirmed ?Type testosterone cypionate 200 mg/mL 80 mg subcut .twice weekly 03/20/24 03/20/24 History intramuscular oil Allergies Allergy/AdvReac Type Severity Reaction Status Date / Time No Known Allergies Allergy Verified 03/20/24 12:34 Vital Signs Vital Signs - 24 hr 03/20/24 13:04 03/20/24 13:15 03/20/24 13:16 Temperature Pulse Rate 103 H 85 79 Respiratory Rate 15 17 Blood Pressure 127/91 H 105/70 Pulse Oximetry 97 98 Oxygen Delivery 03/20/24 13:24 03/20/24 13:30 03/20/24 13:31 Temperature Pulse Rate 78 104 H 105 H Respiratory Rate 14 16 20 Blood Pressure 105/70 101/71 Pulse Oximetry 98 98 98 Oxygen Delivery 03/20/24 13:45 03/20/24 14:00 03/20/24 14:01 Temperature Pulse Rate 100 79 92 Respiratory Rate 15 14 14 Blood Pressure 106/82 Pulse Oximetry 98 98 98 Oxygen Delivery 03/20/24 14:15 03/20/24 14:30 03/20/24 14:31 Temperature Pulse Rate 96 87 79 Respiratory Rate 17 20 16 Blood Pressure 106/87 Pulse Oximetry 97 98 98 Oxygen Delivery 03/20/24 16:00 03/20/24 16:00 03/20/24 16:00 Temperature 36.6 C Pulse Rate 77 109 H 77 Respiratory Rate 20 Blood Pressure 118/69 118/69 Pulse Oximetry 99 Oxygen Delivery 03/20/24 16:35 03/20/24 18:00 03/20/24 18:00 Temperature Pulse Rate 77 80 81 Respiratory Rate 20 Blood Pressure 114/63 Pulse Oximetry 99 Oxygen Delivery Room Air 03/20/24 18:00 03/20/24 20:00 03/20/24 20:00 Temperature Pulse Rate 80 82 Respiratory Rate Blood Pressure 114/63 Pulse Oximetry Oxygen Delivery Room Air 03/20/24 20:00 03/20/24 20:33 03/20/24 22:00 Temperature 36.7 C Pulse Rate 81 81 80 Respiratory Rate 18 Blood Pressure 119/68 119/68 124/73 Pulse Oximetry 99 95 Oxygen Delivery 03/20/24 22:00 03/20/24 22:00 03/21/24 00:00 Temperature 37.0 C Pulse Rate 81 80 80 Respiratory Rate 18 Blood Pressure 124/73 122/68 Pulse Oximetry 96 Oxygen Delivery 03/21/24 00:00 03/21/24 00:00 03/21/24 00:00 Temperature Pulse Rate 80 78 Respiratory Rate Blood Pressure 122/68 Pulse Oximetry Oxygen Delivery Room Air 03/21/24 01:40 03/21/24 02:00 03/21/24 04:00 Temperature Pulse Rate 52 L 57 L Respiratory Rate Blood Pressure Pulse Oximetry Oxygen Delivery Room Air 03/21/24 04:00 03/21/24 05:10 03/21/24 06:00 Temperature 36.6 C Pulse Rate 57 L 63 66 Respiratory Rate 18 Blood Pressure 102/66 Pulse Oximetry 99 Oxygen Delivery 03/21/24 07:36 03/21/24 08:00 03/21/24 08:00 Temperature 36.5 C Pulse Rate 60 85 82 Respiratory Rate 14 14 Blood Pressure 110/76 Pulse Oximetry 99 99 Oxygen Delivery Room Air 03/21/24 09:26 03/21/24 10:00 03/21/24 12:00 Temperature Pulse Rate 85 83 Respiratory Rate Blood Pressure Pulse Oximetry Oxygen Delivery Room Air 03/21/24 12:18 Temperature 36.8 C Pulse Rate 82 Respiratory Rate 12 Blood Pressure 116/74 Pulse Oximetry 98 Oxygen Delivery Exam 2 Narrative: Awake alert oriented appears to be in no acute distress. Appears stated age Const: General: comfortable and no acute distress HENMT: Ears: TM's normal bilaterally Face/Nose/Sinus: Normal nares present Mouth: Yes moist mucous membranes Eyes: Sclera: sclerae normal Neck: Neck: supple and no JVD Chest: Other: No reproducible chest wall pain to palpation Resp: Effort & Inspection: normal respiratory effort Auscultation: clear to auscultation bilaterally Cardio: Rate: regular rate Rhythm: regular rhythm Heart sounds: no murmurs GI: Inspection: non-distended GI Palp: Yes Soft to palpation : Male General Exam: Yes normal external exam Skin: General skin exam: normal color Other: Tattoos noted Neuro: Speech: normal speech Sensory Exam: normal sensation Extrem: General: normal to inspection Psych: Mental Status: mental status grossly normal Affect: normal affect Results Labs and Meds 03/20/24 12:37 03/21/24 05:11 Lab results: Cardiac Enzymes 03/20/24 03/20/24 03/20/24 Range/Units 12:37 14:59 19:01 Troponin I < 0.012 < 0.012 < 0.012 (0.000-0.034) ng/mL Coagulation 03/20/24 Range/Units 12:37 PT 13.4 (11.1-14.7) Seconds APTT 25.8 (22.3-36.8) Seconds Lipids 03/21/24 Range/Units 05:11 Triglycerides 90 (<150) mg/dL Cholesterol 184 (0-200) mg/dL Comprehensive Metabolic Panel 03/21/24 Range/Units 05:11 Sodium 138 (137-145) mmol/L Potassium 4.8 (3.4-5.0) mmol/L Chloride 102 (98-107) mmol/L Carbon Dioxide 30 (22-30) mmol/L BUN 16 (9-20) mg/dL Creatinine 0.96 (0.7-1.3) mg/dL Glucose 94 (65-110) mg/dL Calcium 8.9 (8.4-10.2) mg/dL Intake and Output 03/20/24 03/21/24 03/21/24 23:59 07:59 15:59 Intake Total 1831.7 418.3 237 Output Total 1350 600 900 Balance 481.7 -181.7 -663 Intake: IV 1044.7 18.3 Sodium Chloride 0.9% IV 1,000 1000 ml @ 150 mls/hr IV CONT .Q6H40M STA Rx#:[id number] dilTIAZem 100 MG/100 ML 100 mg 44.7 18.3 In 100 ml @ 0 MG/HR IV CONT . Q0M STA Rx#:[id number] Oral 787 400 237 Output: Urine 1350 600 900 Other: # Unmeasured Voids 500 Patient Weight 03/21/24 23:59 Weight 73.4 kg EKG is personally reviewed and personally interpreted. First EKG showed atrial flutter with rapid ventricular response. Subsequent EKG showed atrial flutter but with controlled heart rate and then most recent EKG shows normal sinus rhythm.
[2024-03-21 16:27] LABS: T4 Thyroxine 6.61 ug/dL (5.53-11.0)
--- NOTE | 2024-03-22 09:03 | PM.DS ---
DS: Admitting Diagnosis Discharge Date 03/21/24 Admitting Diagnosis Palpitations DS: Discharge Diagnosis Discharge Diagnosis (1) Atrial fibrillation with rapid ventricular response: Code(s): I48.91 - Unspecified atrial fibrillation Status: Acute DS: Summary Hospital Course Hospital Course: This is a 48-year-old male with history of paroxysmal atrial fibrillation at least 10 years ago requiring cardioversion who presented to the emergency department for evaluation of palpitations. The patient provides the following history. He stopped drinking alcohol approximately 16 months ago and not long thereafter he stopped taking his metoprolol as he was no longer having episodes of racing heart. The last couple of months he has had intermittent episodes of self-resolving palpitations, usually lasting only few minutes at a time. Yesterday evening he once again developed palpitations and this morning when he got up he was feeling lightheaded and short of breath with exertion. His heart rate has been ranging anywhere between the 80s to 160s and he decided to come in for evaluation. 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 He also denies syncope, near syncope, pleuritic pain, orthopnea, paroxysmal nocturnal dyspnea, lower extremity edema, nausea, vomiting, and sweats. He drinks quite a bit of caffeine, typically 800 to 1000 mg a day in the form of coffee and energy drinks. He cut that by half a couple of weeks ago when he started having the palpitations but that has not really made much of a difference. He previously wore CPAP for sleep apnea but that resolved after he loss over 100 lbs and he has not had any symptoms of that concern him for sleep apnea at this time. In the ED: He was in rapid atrial flutter on arrival with rates in the 150s. The remainder of his vital signs have been stable. CMP and CBC were pretty unremarkable. Initial troponin was normal. TSH was within normal limits. He received metoprolol tartrate 5 mg IV without much improvement and he was started on a diltiazem drip which seems to be helping his rate. Patient was weaned off Diltiazem infusion and transitioned toMetoprolol 12.5mg bid, cardiology was consulted and evaluated patient and recommended continuing Metoprolol. ECHo showed normal LV function but still estimated pulmonary arterial systolic pressure 50 mmHg. Patient did complain of brain fogginess and CT head was obtained which was negative. He will follow up with PCP in 3-5 days and f/u with cardiology as instructed Time Spent with Patient Time attestation: Total time spent providing and/or coordinating discharge services: DS: Data Data Completed and Pending Labs on day of discharge: Labs from last 24 hours 03/21/24 05:11 Thyroxine (T4) 6.61 Discharge Plan Discharge Attending physician on discharge: Alesha Sheikh Consulting providers: Malini Ames; Yumiko Campos; Stewart Kim; Trever Guaman; Chuy Salas Discharging Clinician: Alesha Sheikh Anticipated Discharge Date/Time: 03/21/24 13:01 Patient Disposition: Home, Self-Care Activity: as tolerated Diet: as tolerated Patient Instructions: Metoprolol (By mouth), Diltiazem (By injection), A-fib (Atrial Fibrillation) (DC) Patient Language: Albanian Stand Alone Forms: General Discharge Information, Work/School Release IP Follow-up/Referrals: Teressa,KLAUDIA Chisholm [Primary Care Provider] - (F/u with PCP in 3-5 days ) Manjit Ramon MD [Physician] - (F/u with cardiology as instructed ) Discharge Medications: New metoprolol succinate 25 mg tablet extended release 24 hr 12.5 mg PO DAILY 30 Days Qty: 15 1RF aspirin [Aspirin Childrens] 81 mg tablet,chewable 81 mg PO DAILY Qty: 30 0RF Continued testosterone cypionate 200 mg/mL oil 80 mg subcut .twice weekly Patient Comments: Pt takes on Sundays and Wednesdays Date of admission: 03/20/24 17:04 Primary Care Provider: Kathrine Pollock Admitting Provider: Alesha Sheikh Attending physician on admission: Alesha Sheikh Condition: Stable
== END 2024-03-21 16:40 | disposition home or self-care (01) ==
LOC: ANHED 15:05 → ANHIMU 17:11
PROVIDERS: Internal Medicine Cardiovascular Disease; Physician Assistant; Preventive Medicine Aerospace Medicine; Admitting Provider Internal Medicine; Emergency Provider Family Medicine; PCP Physician Assistant; Visit Provider Internal Medicine
DX: I48.91 Unspecified atrial fibrillation (principal); I48.92 Unspecified atrial flutter; G47.33 Obstructive sleep apnea (adult) (pediatric); F10.11 Alcohol abuse, in remission; Z98.890 Other specified postprocedural states
CPT/HCPCS: 36415; 70450; 80048; 80053; 80061; 80307; 83690; 83735; 84436; 84443; 84484; 85025; 85610; 85730; 93005; 93306; 96361; 96365; 96366; 96372; 96374; 96375; 99285; A9270; G0378; J1650; J7030

== ENCOUNTER 2024-03-30 10:56 | Emergency (ER) | payer BC, SELFPAY ==
[2024-03-30] VITALS (23 sets, daily range): BP systolic 59–134; BP diastolic 39–98; PULSE 45–157; RESP 13–21; TEMP 36.6; O2SAT 97–100
--- NOTE | ~2024-03-30 | XR_ITS ---
EXAMINATION: XR chest 2V 03/30/2024 11:20 INDICATION: Shortness of breath PROCEDURE: 2 view chest COMPARISON: No prior studies for comparison. FINDINGS: The lungs are clear. The cardiomediastinal silhouette is within normal limits. There are no pleural effusions. There is no pneumothorax suspected. IMPRESSION: 1: NO ACUTE CARDIOPULMONARY DISEASE. Reviewed, dictated and finalized at location B. [employer]
--- NOTE | 2024-03-30 11:00 | ECG_ITS ---
Test Date: 2024-03-30 11:03:59 Measurements Intervals [place] Rate: 121 P: 0 [place]: 0 QRS: 76 QRSD: 89 T: 32 QT: 268 QTc: 380 Interpretive Statements ATRIAL FIBRILLATION WITH RAPID VENTRICULAR RESPONSE CONSIDER RIGHT VENTRICULAR CONDUCTION DELAY BASELINE WANDER- II, III ABNORMAL ECG Compared to ECG 03/21/2024 02:21:48 Sinus bradycardia no longer present Electronically Signed On 03-30-2024 11:19:08 COOKIE MIXER HELPER by Trever Guaman D.O.
--- OUTSIDE RECORDS SUMMARY | 2024-03-30 11:07 | XMS_ITS | Data Portability ---
Author Organization DAVEY DANILOYasmeen Booth Address [address] [facility] [place] [address] Care Team Providers Care Consulting Practice Manager Name Role Phone NED BACH Primary Care Provider Unavailab le Assessment No assessment recorded. Plan of Treatment Reminders Order Date Submit Date Provider Last Modified By Organization Details Last Modified Time Details Appointments ANY 15 2024 02:45P M GONZALO Gamboa Not available Not available Not available Lab CMP, serum or plasma 2023 024 [facility], [address] [place], [address], 03/16/2024 13:44:22 lipid panel, serum 2023 024 [facility], [address] [place], [address], 03/16/2024 13:41:13 TSH + free T4, serum 2023 024 [facility], [address] [place], [address], 09/23/2023 09:31:51 CBC w/ auto diff [address] [facility], [address] [place], [address], 08/30/2023 10:57:26 CMP, serum or plasma [address] [facility], [address] [place], [address], 08/30/2023 10:57:26 lipid panel, serum [address] [facility], [address] [place], [address], 08/30/2023 10:57:26 PSA, serum or plasma [address] [facility], [address] [place], [address], 08/30/2023 10:57:26 testoster one, free + total, serum 2023 [facility], [address] [place] [address], [address], 08/31/2023 12:24:27 vitamin B12 + folate, serum or blood [address] [facility], [address] [place], [address], 08/30/2023 10:57:26 HbA1c (hemoglob in A1c), blood [address] [facility], [address] [place], [address], 08/30/2023 10:57:26 Referral None recorded. Procedures None recorded. Surgeries None recorded. Imaging XR, thoracic spine, 2 view 2023 [facility], [address], [place], [address], 08/10/2023 10:06:33 MRI, thoracic spine, w/o contrast 2023 [email or web address] [facility], [address], [place], [address], 09/06/2023 15:48:53 Medication Orders meloxicam 15 mg tablet 2023 024 [facility] #[id number], [address], [place], [address], 10/03/2023 17:55:10 Patient TargetsNo targets recorded. Patient InstructionsNo instructions recorded. Reason for Referral None Reported. Results Created Date Observation Date Name Description Value Unit Range Abnormal Flag Note LastModifiedBy Organization Detail LastModifiedTime 08/10/19 24 08/09/2023 XR, thora cic spine , 2 view No observ ation record ed. [facility] [address], [place], [address], 08/16/2023 18:11:22 03/21/19 25 03/21/2024 CT, brain , w/o contr ast No observ ation record ed. [email or web address] [facility] [address], [place], [address], 03/23/2024 00:32:52 Result Notes None recorded. Problems Name Problem SNOMED Code Status Onset Date Resolution Date Notes Provider Name and Address Organization Details Recorded Time Body mass index 25-29 - overweight 462768987 Active 2023 GONZALO Gamboa Attn: Juan Antonio gaxiola,[address] [place], [address], [facility] 4 11:54:58 Osteoarthritis 253667973 Active 2023 GONZALO Gamboa Attn: Juan Antonio gaxiola,[address] [place], [address], [facility] 4 11:55:08 Chronic low back pain 466066138 Active 2023 GONZALO Gamboa Attn: Juan Antonio gaxiola,[address] [facility], [place], [address], [facility] - [facility] 4 11:55:26 Thoracic back pain 835422106 Active 2023 GONZALO Gamboa Attn: Juan Antonio gaxiola,[address] [facility], [place], [address], [place] [facility] 4 11:55:48 Benign essential hypertension 8454630 Active 2023 GONZALO Gamboa Attn: Juan Antonio gaxiola,[address] [facility], [place], [address], [place] [facility] 4 11:57:13 Long-term drug therapy Active 2023 GONZALO Gamboa Attn: Juan Antonio gaxiola,[address] [facility], [place], [address], [place] [facility] 4 01:29:35 Hyperlipidemia 67877834 Active 2023 GONZALO Gamboa Attn: Timman gaxiola,[address] [facility], [place], [address], [facility] - [facility] 4 01:29:46 Body mass index 20-24 - normal 409836338 Active 2023 GONZALO Gamboa Attn: Juan Antonio gaxiola,[address] [facility], [place], [address], [place] [facility] 4 01:30:12 Problem Notes None recorded. Procedures Surgical History Date Name Laterality Status Provider Name and Address Organization Details Recorded Time Back Surgery completed Ruy Vallejo [place] - [place] 08/09/2023 15:22:37 Imaging Results Imaging Date Name Status LastModified by Organiz ation Details LastModified Time 08/09/2023 XR, thoracic spine, 2 view completed [facility] [address], [place], [address], 08/16/2023 18:11:22 03/21/2024 CT, brain, w/o contrast completed [address], [place], [address], 03/23/2024 00:32:52 Procedure Notes None recorded. Medical Equipment None [...] Not Available metoprolol succinate ER 50 mg tablet,extend ed release 24 hr TAKE 1 TABLET BY MOUTH EVERY DAY 06/14 completed Not Available Not Available Not Available meloxicam 15 mg tablet TAKE 1 TABLET BY MOUTH EVERY DAY w/food 2023 active Not Available Not Available Not Avai lable ondansetron HCl 4 mg tablet 08/08 completed Not Available Not Available Not Available hydroxyzine pamoate 50 mg capsule 08/08 completed Not Available Not Available Not Available buspirone 10 mg tablet 08/08 completed Not Available Not Available Not Available aspirin 81 mg chewable tablet TAKE 1 TABLET BY MOUTH EVERY DAY active Not Available Not Available No t Available metoprolol succinate ER 25 mg tablet,extend ed release 24 hr TAKE 1/2 (HALF A) TABLET (12.5 MG) BY MOUTH DAILY FOR 30 DAYS active Not Available Not Available No t Available lorazepam 1 mg tablet 08/08 completed Not Available Not Available Not Available escitalopram 10 mg tablet 08/08 completed Not Available Not Available Not Available Vitals Date Recorded Body height Body mass index (BMI) Body weight Respiratory rate Oxygen saturation Oxygen saturation in Arterial blood by Pulse oximetry Heart rate Systolic blood pressure Diastolic blood pressure Provider Name and Address Organization Details Last Updated DateTime 4 170.18 cm 25.2 kg/m2 43355.9 3 g 20 /min 99 % 99 % 60 /min 148 mm[Hg] 88 mm[Hg] Ruy Vallejo MA [facility] 4 15:32:39 Date Recorded Systolic blood pressure Diastolic blood pressure Systolic blood pressure Diastolic blood pressure Provider Name and Address Organization Details Last Updated DateTime 08/09/2023 132 mm[Hg] 84 mm[Hg] 140 mm[Hg] 80 mm[Hg] GONZALO Gamboa Attn: [place], [address] , [place] - [place] 4 15:59:01 Date Recorded Body height Body mass index (BMI) Body weight Heart rate Oxygen saturation Oxygen saturation in Arterial blood by Pulse oximetry Systolic blood pressure Diastolic blood pressure Provider Name and Address Organization Details Last Updated DateTime 170.18 cm 24.6 kg/m2 11127.2 8 g 74 /min 97 % 97 % 122 mm[Hg] 68 mm[Hg] Leydi Garcia MA [facility] 17:19:33 Date Recorded Systolic blood pressure Diastolic blood pressure Provider Name and Address Organization Details Last Updated DateTime 10/03/2023 128 mm[Hg] 80 mm[Hg] GONZALO Gamboa Attn: Accounting,[address] [facility], [place], [address], [facility] 10/03/2023 17:55:33 Social History Question Answer Notes LastModified by Organizat ion Details LastModified Time Tobacco Smoking Status Never Smoker Ruy Vallejo MA [facility], [facility] 08/09/2023 15:23:48 Do You Have An Advance [...] Skin Problems N Anemia N Heart Attack (RI) N Anxiety Disorder Y Diabetes N Muscle, Joint, or Bone Problems Y Seizures/Epilepsy N Acid Reflux (GERD) N Cancer N Stroke N Asthma N Allergies N High Cholesterol Y Hepatitis N Liver Disease N Headaches N Heart Failure N Osteoporosis N Past Encounters Encounter ID Performer Location Encounter Start Date Encounter Closed Date Diagnosis/Indication Diagnosis SNOMED-CT Code Diagnosis ICD10 Code Diagnosis Note [id number] GONZALO Gamboa [facility] [employer] [address] [place] [address] 08/09/2023 15:10:02 08/09/2023 16:07:03 Body mass index 25-29 - overweight 638859366 Z68.25 Thoracic back pain 28000 8004 M54.6 More problemati c and acute at this time is thoracic back pain. Check baseline x-ray of the thoracic spine with plans to proceed with an MRI to evaluate disc spacing and nerve root exits. Chronic low back pain 27 9765424 M54.50 Chronic low back pain with history of lumbar L5 diskectomy Osteoarthritis 886921804 M19.90 Underlying osteoarthr itis noted per patient report Cholesterol screening 27 4569335 Z13.220 Fasting lipid panel due Diabetes m ellitus screening 700380385 Z13.1 Annual A1c screening due Screening for malignant neoplasm of prostate 770883521 Z12.5 Annual PSA due Long-term drug therapy 088637295 Z79.899 Routine CBC and CMP labs ordered Thyroid di sorder screening 394444616 Z13.29 Routine thyroid function panel ordered Endocrine/ metabolic screening 017525783 Z13.228 Screening testostero ne per patient request and check vitamin B12 and folate. Benign ess ential hypertension 9948442 I10 Patient is running around 140/80 at this time, borderline control currently on metoprolol succinate ER 25 mg daily. He will continue to monitor pressures, at this time we will keep dosing at 25 mg. [id number] GONZALO Gamboa [facility] [employer] [address] [place] [address] 10/03/2023 17:02:45 10/03/2023 18:09:39 Hyperlipidemia 60272512 E78.5 Fasting lipid panel is due to monitor for improvemen t with dietary Long-term drug therapy 784238646 Z79.899 Routine CMP lab due Chronic low back pain 27 8067154 M54.50 Chronic low back pain with history of lumbar L5 diskectomy Adult heal th examination 510958201 Z00.00 Annual wellness exam complete Body mass index 20-24 - normal 964007464 Z68.24 BMI is 24.6 Health Concerns Section Related Observation LastModified by Organization Yecenia ls LastModified Time None Recorded Concern Status LastModified by Organization Details LastModified Time None Recorded Advance Directives Directive N: Payers Encounter Date Sequence Insurance Name Policy Number Policy Colindres Covered Member ID Colindres Member ID Guarantor Name 08/09/2023 1 [place] [id number] 3 Naif Yu [id number] Naif Yu 10/03/2023 1 [employer] [id number] 3 Naif Carvajaldenis [id number] Naif Yu Notes Date Note Type [...] at least a year. Dr. Bernabe in [place]. Nothing is helping the middle back. There is a knot feeling and jabbing feeling, and numbness. Sharp pains that occur for seconds in the posterior left shoulder and upper arm/side. He does have hx of CLBP with hx of L5 discectomy type procedure. Hx of pain management lumbar spine, with multiple injections in , Dr. Herbert in [place].HypertensionRe ported bypatient.Notes:off metoprolol ER now. BP has been stable at home. 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 GONZALO Gamboa Attn: Accounting[address] [facility], [place], [address], [place] [facility] 08/21/2023 11:57:34 10/03/2023 text/html Back PainReporte d bypatient.Notes:Cookie ent has chronic low back pain and this continues to be a source of most of his symptoms. He does exercise and eat healthy and that does help to a certain degree with managing his symptoms but just his chronic pain history structurally remains problematic.Hyperlip idemiaReported bypatient.Notes:Cookie ent has a history of hyperlipidemia but declines any medication therapy. GONZALO Gamboa Attn: Accounting[address] [place], [address], [place] - [facility] 10/16/2023 01:30:40
--- OUTSIDE RECORDS SUMMARY | 2024-03-30 11:07 | XMS_ITS | Data Portability ---
Author Organization [facility] [employer], Main Office Address [address] [place] [address] Assessment No assessment recorded. Plan of Treatment Reminders Order Date Submit Date Provider Last Modified By Organization Details Last Modified Time Details Appointments None recorded. Lab CMP, serum or plasma [address] Out[facility], [address] [place], [address], 4 10:08:53 lipid panel, serum [address] Out[facility] Lab, [address] [place], [address], 4 10:08:52 CMP, serum or plasma [address] Out[facility] Lab, [address] [place], [address], 3 17:54:37 CBC w/ auto diff [address] Out[facility] Lab, [address] [place], [address], 3 17:54:48 TSH + free T4, serum 2022 023 [facility] Outpatient Lab, [address] [place], [address], 3 17:49:11 urinalysis complete, reflex culture [address] Out[facility] Lab, [address] [place], [address], 3 17:54:57 lipid panel, serum [address] Out[facility] Lab, [address] [place], [address], 3 17:54:20 PSA, serum or plasma [address] Out[facility] Lab, [address] [place], [address], 3 17:55:06 HbA1c (hemoglobin A1c), blood [address] Lab, [address] [place], [address], 3 17:54:28 Referral None recorded. Procedures colonoscopy screening (PROC) 2022 023 [email or web address] 4 Andie Ramos MD, [address] [facility], [address], [place], [address], 4 10:16:49 Surgeries None recorded. Imaging CT, angiogram, head + neck, w/ contrast - approved [id number] 2022 023 [email or web address] [facility] (Imaging), [address] [place], [address], 4 10:09:00 MRI, lumbar spine, w/o contrast [address] (Imaging), [address] [place], [address], 3 16:53:18 Medication Orders None recorded. Patient TargetsNo targets [...] WILL NOT BE REPOR EDEN. Not Available [facility] (Lab) [address] [place], [address], 05/18/2021 12:08:07 05/19/19 22 05/18/2021 LIPID PANEL cholesterol 175 mg/dL 140-19 9 NIH BEULAH NSUS RECOM MENDA TION FOR DENIS STERO L: ADULT CHILD LOW RISK: <200 <170 BORDE RLINE : <200- 239 ----- HIGH RISK: >240 >200 Not Available [facility] (Lab) [address] [place], [address], 05/18/2021 12:08:07 05/19/19 22 05/18/2021 LIPID PANEL triglyceride s 121 mg/dL 0-150 NIH BEULAH NSUS REPOR T RECOM MENDA TION FOR TRIGL YCERI NETO: ADULT CHILD LOW RISK: <150 ----- BODER LINE: 150-1 99 ----- HIGH RISK: >200 ----- Not Available [facility] (Lab) [address] [place], [address], 05/18/2021 12:08:07 05/19/19 22 05/18/2021 LIPID PANEL HDL cholesterol 39 mg/dL 40- low Not Available [facility] (Lab) [address] [place], [address], 05/18/2021 12:08:07 05/19/19 22 05/18/2021 HEMOG LOBIN A1C HA1C 5.3 % 4.0-6. 0 Diabe alejandra Scree janet Crite justin: <5.7% Consi stent with absen ce of diabe alejandra 5.7-6 .4% Consi stent with incre ased risk for diabe alejandra (pred iabet es) >OR=6 .5% Consi stent with diabe alejandra REFER ENCE: Diabe alejandra Care 2015, 39(Holden ppl.1 ):s13 -s22 Not Available [facility] (Lab) [address] [place], [address], 05/18/2021 12:48:55 05/19/19 22 05/18/2021 COMPR EHENS CHAD METAB OLIC PANEL carbon dioxide 28 mmol/ L 22-30 Not Available [facility] (Lab) [address] [place], [address], 05/18/2021 12:08:05 05/19/19 22 05/18/2021 COMPR EHENS CHAD METAB OLIC PANEL sodium 139 mmol/ L 137-14 5 Not Available [facility] (Lab) [address] [place], [address], 05/18/2021 12:08:05 05/19/19 22 05/18/2021 COMPR EHENS CHAD METAB OLIC PANEL potassium 4.7 mmol/ L 3.5-5. 1 Not Available [facility] (Lab) [address] [place], [address], 05/18/2021 12:08:05 05/19/19 22 05/18/2021 COMPR EHENS CHAD METAB OLIC PANEL chloride 103 mmol/ L 98-107 Not Available [facility] (Lab) [address] [place], [address], 05/18/2021 12:08:05 05/19/19 22 05/18/2021 COMPR EHENS CHAD METAB OLIC PANEL agap 12.7 mmol/ L 14-22 low Not Available [facility] (Lab) [address] [place], [address], 05/18/2021 12:08:05 05/19/19 22 05/18/2021 COMPR EHENS CHAD METAB OLIC PANEL glucose 108 mg/dL 70-99 high Not Available [facility] (Lab) [address] [place], [address], 05/18/2021 12:08:05 05/19/19 22 05/18/2021 COMPR EHENS CHAD METAB OLIC PANEL BUN 10 mg/dL 8-19 Not Available [facility] (Lab) [address] [place], [address], 05/18/2021 12:08:05 05/19/19 22 05/18/2021 COMPR EHENS CHAD METAB OLIC PANEL creatinine 0.88 mg/dL 0.66-1 .25 Not Available [facility] (Lab) [address] [place], [address], 05/18/2021 12:08:05 05/19/19 22 05/18/2021 COMPR EHENS CHAD METAB OLIC PANEL GFR >60 Refer ence Range : [place] ge GFR Healt hy Adult : >60 [...] or ethni c subgr oups, such as Hishi nics. Outsi de the valid ated elisabeth [...] calcu lataissatou is avail able on the [facility] websi te: https :[email or web address] lora.makeda sandoval.o marita/pretty kingess ional s/kdo qi/gf r_cal culat or Not Available [facility] (Lab) [address] [place], [address], 05/18/2021 12:08:05 05/19/19 22 05/18/2021 COMPR EHENS CHAD METAB OLIC PANEL alkaline phosphatase 53 U/L 38-126 Not Available [facility] (Lab) [address] [place], [address], 05/18/2021 12:08:05 05/19/19 22 05/18/2021 COMPR EHENS CHAD METAB OLIC PANEL calcium 9.6 mg/dL 8.4-10 .2 Not Available [facility] (Lab) [address] [place], [address], 05/18/2021 12:08:05 05/19/19 22 05/18/2021 COMPR EHENS CHAD METAB OLIC PANEL alanine aminotransfe rase 37 U/L 0-50 Not Available [facility] (Lab) [address] [place], [address], 05/18/2021 12:08:05 05/19/19 22 05/18/2021 COMPR EHENS CHAD METAB OLIC PANEL aspartate aminotransfe rase 36 U/L 15-46 Not Available [facility] (Lab) [address] [place], [address], 05/18/2021 12:08:05 05/19/19 22 05/18/2021 COMPR EHENS CHAD METAB OLIC PANEL bilirubin, total 0.60 mg/dL 0.20-1 .30 Not Available [facility] (Lab) [address] [place], [address], 05/18/2021 12:08:05 05/19/19 22 05/18/2021 COMPR EHENS CHAD METAB OLIC PANEL total protein 7.7 g/dL 6.3-8. 2 Not Available [facility] (Lab) [address] [place], [address], 05/18/2021 12:08:05 05/19/19 22 05/18/2021 COMPR EHENS CHAD METAB OLIC PANEL albumin 4.8 g/dL 3.4-5. 0 Not Available [facility] (Lab) [address] [place], [address], 05/18/2021 12:08:05 05/19/19 22 05/18/2021 COMPR EHENS CHAD METAB OLIC PANEL globulin 2.9 g/dL 2.6-4. 2 Not Available [facility] (Lab) [address] [place], [address], 05/18/2021 12:08:05 05/19/19 22 05/18/2021 COMPR EHENS CHAD METAB OLIC PANEL A/G ratio 1.7 ratio 1.0-2. 0 Not Available [facility] (Lab) [address] [place], [address], 05/18/2021 12:08:05 05/07/19 22 05/06/2021 , pily newman No observ ation record ed. [id number], [place], [address], 04/14/2022 06:08:16 Result Notes None recorded. Problems Name Problem SNOMED Code Status Onset Date Resolution Date Notes Provider Name and Address Organization Details Recorded Time Benign essential hypertens ion 2825270 Active Not Available [facility] 3 06:01:24 Abdominal pain 52083709 Completed 202112/01/2021 Not Available [facility] 3 06:01:24 Sore throat 534984141 Active 2022 Not Available [facility] 3 06:01:24 Low back pain 605679359 Active 2021 Not Available [facility] 3 06:01:25 Hypertrig lyceridem ia 367019709 Active 2017 Not Available [facility] 3 06:01:25 History of atrial fibrillat ion 024757502 Active 2017 Not Available [facility] 3 06:01:25 Atrial fibrillat ion 06655551 Active Not Available [facility] 3 06:01:25 Hyperlipi demia 77732456 Active Not Available [facility] 3 06:01:25 Tinnitus 09340573 Active 2021 Not Available [facility] 3 06:01:25 Sleep apnea 76517288 Active Not Available [facility] 3 06:01:25 Hyperglyc emia 86232828 Active 2017 Not Available [facility] 3 06:01:25 Degenerat ion of lumbar intervert ebral disc 99107318 Active 2022 GONZALO Gamboa [address], [place], [address] , [employer] 3 10:19:24 Lumbar radiculop athy 916464926 Active 2022 GONZALO Gamboa [address], [place], [address] , [employer] 3 10:19:29 Steatosis of liver 604792906 Active 2022 GONZALO Gamboa [address], [address], [place], [address] , [employer] 3 10:20:40 Subjectiv e pulsatile tinnitus of right ear 48071701832 55568 Active 2022 GONZALO Gamboa [address], [place], [address] , [employer] 3 09:56:29 Problem Notes None recorded. Procedures Surgical History Date Name Laterality Status Provider Name and Address Organization Details Recorded Time Orthopedic Surgery completed Not Available [facility] 04/14/2022 05:56:43 Imaging Results Imaging Date Name Status LastModified by Organiz ation Details LastModified Time 05/06/2021 US, gallbladder completed [email or web address] [id number] [facility] [address], [place], [address], 04/14/2022 06:08:16 Procedure Notes None recorded. Medical [...] /min 64 /min 69 /min 97.5 [degF] 67045.8 9 g 36156.9 3 g 39361.1 5 g 136 mm[Hg] 80 mm[Hg] 120 mm[Hg] 80 mm[Hg] 138 mm[Hg] 70 mm[Hg] Not Available [facility] 3 05:57:39 Date Recorded Body height Body temperature Body weight Heart rate Oxygen saturation Oxygen saturation in Arterial blood by Pulse oximetry Systolic blood pressure Diastolic blood pressure Provider Name and Address Organization Details Last Updated DateTime 3 168.91 cm 98.1 [degF] 47940.7 4 g 84 /min 99 % 99 % 126 mm[Hg] 82 mm[Hg] Bernadette Llamas RN [place] [employer] 3 09:49:16 Date Recorded Body mass index (BMI) Provider Name and Address Organization Details Last Updated DateTime 05/12/2022 26.2 kg/m2 GONZALO Gamboa [address] [facility], [place], [address] [employer] 05/12/2022 10:01:48 Date Recorded Body height Body weight Body temperature Heart rate Oxygen saturation Oxygen saturation in Arterial blood by Pulse oximetry Systolic blood pressure Diastolic blood pressure Provider Name and Address Organization Details Last Updated DateTime 3 168.91 cm 03084.1 5 g 98.2 [degF] 67 /min 99 % 99 % 128 mm[Hg] 80 mm[Hg] Bernadette Llamas RN [facility] [employer] 3 09:30:27 Date Recorded Body mass index (BMI) Systolic blood pressure Diastolic blood pressure Provider Name and Address Organization Details Last Updated DateTime 11/10/2022 26.1 kg/m2 128 mm[Hg] 80 mm[Hg] GONZALO Gamboa [address] [facility] [facility], [place] [address], [place], [address], [employer] 11/10/2022 09:58:34 Social History Question Answer Notes LastModified by Organizat ion Details LastModified Time Tobacco Smoking Status Never Smoker Not Available [facility] 04/14/2022 05:54:51 What Is Your Level Of Alcohol Consumption? Moderate [email or web address] Information not available 05/12/2022 What Is Your Level Of Caffeine Consumption? Moderate [email or web address] Information not available 05/12/2022 How Much Tobacco Do You Chew? None [id number] Information not available 04/14/2022 In The 14 Days Before Symptom Onset, Have You Had Close Contact With A Laboratory-confirm ed COVID-19 While That Case Was Ill? No [email or web address] Information n ot available 05/11/2022 In The 14 Days Before Symptom Onset, Have You Had Close Contact With A Person Who Is Under Investigation For COVID-19 While That Person Was Ill? No [email or web address] Information not available 05/11/2022 Are You Currently Employed? Yes [email or web address] Information not available 05/11/2022 What Type Of Diet Are You Following? REGULAR [id number] Information not available 04/14/2022 Which Illicit Or Recreational Drugs Have You Used? None [id number] Information not available 04/14/2022 What Is Your Occupation? [employer] [id number] Information not available 04/14/2022 Have There Been Any Changes To Your Family Or Social Situation? No [email or web address] Information no t available 05/11/2022 Do You Use Insect Repellent Routinely? No [email or web address] Information not available 05/11/2022 What Was The Date Of Your Most Recent Tobacco Screening? 07/23/2020 [id number] Information not available 04/14/2022 What Is Your Relationship Status? [email or web address] Information not available 05/11/2022 Do You Use Your Seat Belt Or Car Seat Routinely? Yes [email or web address] Information not available 05/12/2022 Are You Sexually Active? Yes [email or web address] Information not available 05/12/2022 Do You Have Smoke And Carbon Monoxide Detectors In Your Home? Yes [email or web address] Information not available 05/11/2022 Do You Feel Stressed (tense, Restless, Nervous, Or Anxious, Or Unable To Sleep At Night)? [id number] [email or web address] Information not available 05/12/2022 Do You Use Any Illicit Or Recreational Drugs? No [email or web address] Information not available 05/11/2022 Do You Use Sunscreen Routinely? No [id number] Information not available 04/14/2022 Have You Recently Traveled Abroad? No [email or web address] Information not available 05/11/2022 Do You Have Any Dietary Restrictions? No [email or web address] Information not available 05/11/2022 Do You Or Have You Ever Used Any Other Forms Of Tobacco Or Nicotine? No [email or web address] Information not available 05/11/2022 Sex: Male Functional Status Question Answer Note LastModified by Organizat ion Details LastModified Time What is your exercise level? Moderate [id number] Information not available 04/14/2022 Mental Status None recorded. Family History Relationship Description Onset Age of this Age Resolved Age Notes LastModified by Organization Details LastModified Time Maternal Grandfather Diabetes mellitus [id number] Not available 04/14/2022 05:56:44 Maternal Grandmother Malignant neoplastic disease [id number] Not available 04/14/2022 05:56:44 Maternal Uncle Malignant neoplastic disease [id number] [id number] Not available 04/14/2022 05:56:44 Medical History No medical history recorded. Past Encounters Encounter ID Performer Location Encounter Start Date Encounter Closed Date Diagnosis/Indication Diagnosis SNOMED-CT Code Diagnosis ICD10 Code Diagnosis Note [id number] [facility] [address] [place] [address] 06/04/2020 00:00:00 06/04/2020 16:10:34 [id number] [facility] [address] [facility] [address] [place] [address] 07/23/2020 00:00:00 07/23/2020 12:51:29 [id number] [facility] [place] [address] [place] [address] 07/28/2020 00:00:00 07/28/2020 13:18:42 [id number] [facility] [address] [place] [address] 12/02/2020 00:00:00 12/02/2020 11:00:21 [id number] [facility] [address] [place] [address] 05/11/2021 00:00:00 05/11/2021 10:37:43 [id number] [facility] [address] [place] [address] 12/01/2021 00:00:00 12/01/2021 13:36:25 [id number] GONZALO Gamboa [facility] [address] [place] [address] 05/12/2022 09:36:13 05/12/2022 10:28:34 Adult health examination 242413110 Z00.01 well exam completed Benign ess ential hypertension 1277804 I10 stable History of atrial fibrillation 100975380 Z86.79 stable. Hyperlipidemia 49450886 E78.5 fasting lipids due Degenerati on of lumbar intervertebral disc 77397091 M51.36 hx noted. sees pain management . Lumbar radiculopathy 128 289894 M54.16 symptomati c. hx of lumbar surgery. needs Updated MRI so Neurosurge ry will see him in consult. History of operative procedure on lumbar spinal structure 087909269 Z98.890 hx noted 2010 Screening for malignant neoplasm of prostate 578153218 Z12.5 PSA due Screening for malignant neoplasm of colon 839143345 Z12.11 baseline colonoscop y due. Diabetes m ellitus screening 497634379 Z13.1 screening for diabetes due Steatosis of liver 1007 K76.0 hx noted Long-term drug therapy 751995565 Z79.899 routine labs due. [id number] GONZALO Gamboa [facility] [place] [address] [place] [address] 11/10/2022 09:21:57 11/10/2022 10:13:38 Benign essential hypertension 9357163 I10 stable on metoprolol ER 50mg daily. Hyperlipidemia 63248174 E78.5 diet and exercise managed. repeat fasting lipids in Nov. Long-term drug therapy 630777591 Z79.899 Subjective pulsatile tinnitus of right ear 8417856826 675430 H93.A1 pt reports onset this year of [...] ID Guarantor Name 05/12/2022 1 [employer] [id number] 3 Naif Yu [id number] 09 Naif Yu 11/10/2022 1 [employer] [id number] 3 Naif Yu [id number] Naif Yu Notes Date Note Type Note Provider Name and Address Organization Details Recorded Time 3 text/html HypertensionReported bypatient.Onset/Timing:be tter Alleviating Factors:medication Associated Symptoms:no shortness of breath; no fatigue; no palpitations; no decline in exercise capacity; no snoring pt here to establish carec/o back painreports last summer was dx with fatty liver GONZALO Gamboa [address], [place], [address], [employer] 05/12/2022 21:08:01 3 text/html HypertensionReported bypatient.Onset/Timing:be tter Alleviating Factors:medication Associated Symptoms:no shortness of breath; no fatigue; no palpitations; no decline in exercise capacity; no snoring GONZALO Gamboa [address], [place], [address], [employer] 11/10/2022 19:17:14
[2024-03-30] MEDS: dilTIAZem 100 MG/100 ML 100 MG/100 ML BAG IV CONT (11:29)
[2024-03-30] MEDS: dilTIAZem HCl INJ 25 MG/5 ML VIAL 10 MG IV PUSH (11:30)
[2024-03-30 11:44] LABS: Basophils Absolute Auto 0.1 K/mm3 (0.0-0.1); Basophils Percent Auto 0.9 % (0.2-1.2); Eosinophils Absolute Auto 0.1 K/mm3 (0-0.3); Eosinophils Percent Auto 0.9 % (0-4.4); Hematocrit 46.6 % (42.0-52.0); Immature Granulocyte Absolute 0.04 K/mm3 (0.00-0.031); Immature Granulocyte Percent A 0.4 % (0-0.5); Lymphocytes Absolute Auto 2.63 K/mm3 (0.9-3.2); Lymphocytes Percent Auto 28.6 % (18.3-44.2); Mean Corpuscular HGB Conc 34.3 g/dl (32-36); Mean Corpuscular Hemoglobin 30.9 pg (26-34); Mean Platelet Volume 10.4 fl (7.4-10.4); Monocytes Absolute Auto 0.8 K/mm3 (0.1-0.6); Monocytes Percent Auto 8.2 % (2.6-8.5); Neutrophils Absolute Auto 5.6 K/mm3 (1.3-6.7); Platelet Count Result 179 k/mm3 (150-375); Red Blood Count 5.18 M/mm3 (4.6-6.20); Red Cell Distribution Width 12.7 % (11.5-14.5); White Blood Count 9.2 K/mm3 (4.5-10.0)
[2024-03-30 11:50] LABS: INR 0.9
[2024-03-30 11:51] LABS: Alanine Aminotransferase 57 U/L (6-50); Alkaline Phosphatase 44 U/L (38-126); Anion Gap 11 mmol/L (4-12); Aspartate Amino Transferase 59 U/L (17-59); Bilirubin,Total 1.6 mg/dL (0.2-1.3); Blood Urea Nitrogen 18 mg/dL (9-20); Calcium 10.2 mg/dL (8.4-10.2); Carbon Dioxide 29 mmol/L (22-30); Chloride 99 mmol/L (98-107); Estimated CRCL calculation 80 ml/min; Estimated Glomerular Filt Rate > 60; Glucose 100 mg/dL (65-110); Lipase 109 U/L (23-300); Partial Thromboplastin Time 27.5 Seconds (22.3-36.8); Potassium 4.3 mmol/L (3.4-5.0); Sodium 139 mmol/L (137-145)
[2024-03-30 12:03] LABS: Troponin I < 0.012 ng/mL (0.000-0.034)
[2024-03-30] MEDS: SODIUM CHLORIDE 0.9% IV 1,000 ML 999 ML IV CONT (12:07)
[2024-03-30 12:14] LABS: Glucose Point of Care 91 mg/dl (65-105)
--- NOTE | 2024-03-30 13:40 | ED.ARRPALP ---
HPI - Arrhythmia/Palpitations General Chief Complaint: Arrhythmia/Palpitations Stated Complaint: AFIB RVR Time Seen by Provider: 03/30/24 11:12 Source: patient Mode of arrival: wheelchair Limitations: no limitations History of Present Illness HPI narrative: 48-year-old with a history of AFib on metoprolol 12.5 mg daily , was sent from the cardiology office with complaints of fast heart rate. Patient was seen here in the ER and later admitted to the hospital . Had an out pt follow up this morning . while he was in the Office started feeling light headed ,denies any chest pain . . MD complaint: rapid heart beat and irregular heart beat Onset (ago): hour(s) (few) Duration: constant Severity: moderate Arrhythmia history: atrial fibrillation Associated symptoms: other (light headed) Related Data Home Medications ?Medication ?Instructions ?Recorded ?Confirmed ?Last Taken ?Type testosterone cypionate 200 mg/mL 80 mg subcut .twice weekly 03/20/24 03/20/24 03/18/24 History intramuscular oil Allergies Allergy/AdvReac Type Severity Reaction Status Date / Time No Known Allergies Allergy Verified 03/20/24 12:34 Review of Systems Review of Systems: All systems reviewed & are unremarkable except as noted in HPI and below Constitutional: Constitutional: Reports no additional constitutional complaints Eyes: Eyes: Reports no additional eye complaints ENT: Reports system reviewed and no additional complaints, except as documented Cardiovascular: Cardiovascular: Reports as per HPI Respiratory: Respiratory: Reports no additional respiratory complaints Gastrointestinal: Gastrointestinal: Reports no additional gastrointestinal complaints Musculoskeletal: Musculoskeletal: Reports no additional musculoskeletal complaints Neurologic: Reports system reviewed and no additional complaints, except as documented [facility] Past Medical History Medical History Obstructive sleep apnea no longer on CPAP after a greater than 100 lb weight loss Paroxysmal atrial fibrillation Surgical History Surgical History History of cardioversion History of lumbar surgery Family History Family History Grandparent A-fib Diabetes mellitus Mother Chronic obstructive pulmonary disease Diabetes mellitus Hypertension Grandparent Chronic obstructive pulmonary disease Cervical cancer Grandparent Chronic obstructive pulmonary disease Other Lung cancer Social History Social History Social History: Surrogate medical decision maker: shweta Kelly ([phone]). Code status: Full code. Smoking status: Never smoker Second hand tobacco smoke exposure: Yes Alcohol intake: former Substance use: current Substance use type: marijuana Do You Feel Safe in your Home?: Yes Lack of Transportation: No Lack of Food: Never True Current Housing: I Have Housing Concerned About Future Housing: No Difficulty Paying Gas/Electric Bills: No Difficulty Paying for Meds: No Currently Unemployed: No Education: High School Diploma/GED Difficulty w/ Childcare or Family Care: No Spiritual care concerns: No Exam Narrative: GENERAL: Well-appearing, well-nourished, and in no acute distress. HEAD: Normocephalic, atraumatic. EYES: PERRLA and EOMI. NECK: Supple. CHEST: Clear to auscultation. No respiratory distress. HEART: Tachycardic ABDOMEN: Soft, nontender, nondistended, normal active bowel sounds. EXTREMITIES: Normal range of motion. No edema. SKIN: Warm, dry, no rash. NEURO: No focal deficits. Alert and oriented x3. PSYCH: Normal mood and affect. Course Course Emergency Course: Patient upon arrival was in AFib with RVR with a heart rate in 120s I did give him a bolus of 10 mg IV Cardizem , his heart rate dropped as well as his blood pressure. He became lightheaded did give him a bolus of fluid which brought his blood pressures to 112/65 and converted to normal sinus rhythm Discussed with Dr. Ramon recommended 25 mg of metoprolol daily and can be discharged home Vital Signs Vital signs: Vital Signs Temperature 36.6 C 03/30/24 11:02 Pulse Rate 122 H 03/30/24 11:02 Respiratory Rate 16 03/30/24 11:02 Blood Pressure 129/82 03/30/24 11:02 Temperature 36.6 C 03/30/24 11:02 Pulse Rate 82 03/30/24 13:31 Respiratory Rate 15 03/30/24 13:31 Blood Pressure 120/70 03/30/24 13:31 Pulse Oximetry 98 03/30/24 13:02 MDM - Arrhythmia/Palpitations Differential Diagnosis Differential diagnosis: Likely artial fibrillation, artial flutter and supraventricular tachycardia Medical Records Attestation: I reviewed the patient's medical records. Lab Data Attestation: I reviewed the patient's lab results. 03/30/24 11:24 03/30/24 11:24 Labs: Lab Results 03/30/24 03/30/24 Range/Units 11:24 12:11 WBC 9.2 (4.5-10.0) K/mm3 RBC 5.18 (4.6-6.20) M/mm3 Hgb 16.0 (14.0-18.0) g/dL Hct 46.6 (42.0-52.0) % MCV 90.0 (80-100) fl MCH 30.9 (26-34) pg MCHC 34.3 (32-36) g/dl RDW 12.7 (11.5-14.5) % Plt Count 179 (150-375) k/mm3 MPV 10.4 (7.4-10.4) fl Immature Gran % (Auto) 0.4 (0-0.5) % Neut % (Auto) 61.0 (45.5-73.1) % Lymph % (Auto) 28.6 (18.3-44.2) % [place] % (Auto) 8.2 (2.6-8.5) % Eos % (Auto) 0.9 (0-4.4) % Baso % (Auto) 0.9 (0.2-1.2) % Lymph # (Auto) 2.63 (0.9-3.2) K/mm3 [place] # (Auto) 0.8 H (0.1-0.6) K/mm3 Eos # (Auto) 0.1 (0-0.3) K/mm3 Baso # (Auto) 0.1 (0.0-0.1) K/mm3 Abs Immat Gran (auto) 0.04 H (0.00-0.031) K/mm3 Absolute Neuts (auto) 5.6 (1.3-6.7) K/mm3 Absolute Nucleated RBC 0.000 (0.0-0.012) K/mm3 Nucleated RBC % 0.0 (0.0-0.2) % PT 13.0 (11.1-14.7) Seconds INR 0.9 APTT 27.5 (22.3-36.8) Seconds Sodium 139 (137-145) mmol/L Potassium 4.3 (3.4-5.0) mmol/L Chloride 99 (98-107) mmol/L Carbon Dioxide 29 (22-30) mmol/L Anion Gap 11 (4-12) mmol/L BUN 18 (9-20) mg/dL Creatinine 0.91 (0.7-1.3) mg/dL Estim Creat Clear Calc 80 ml/min Estimated GFR > 60 (59 - ) Glucose 100 (65-110) mg/dL POC Capillary Glucose 91 (65-105) mg/dl Calcium 10.2 (8.4-10.2) mg/dL Total Bilirubin 1.6 H (0.2-1.3) mg/dL AST 59 (17-59) U/L ALT 57 H (6-50) U/L Alkaline Phosphatase 44 (38-126) U/L Troponin I < 0.012 (0.000-0.034) ng/mL Total Protein 8.0 (6.3-8.2) g/dL Albumin 5.0 (3.5-5.1) g/dL Lipase 109 (23-300) U/L Imaging Data Radiologist's impression: ITS Impressions Chest X-Ray 03/30/24 11:32 IMPRESSION: 1: NO ACUTE CARDIOPULMONARY DISEASE. ECG Data EKG #1: ECG completion date: 03/30/24 ECG completion time: 11:03 EKG Interpretation: tachycardia (121), atrial fibrillation, no ST changes and normal QRS Discharge Plan Discharge Clinical Impression: Atrial fibrillation with rapid ventricular response Patient Disposition: Home, Self-Care Condition: Stable Instructions: A-fib (Atrial Fibrillation) (ED) Additional Instructions: Take metoprolol 25 mg daily, follow-up with Dr. Kim in the next week . Patient Language: Faroese Prescriptions: No Action testosterone cypionate 200 mg/mL oil 80 mg subcut .twice weekly Patient Comments: Pt takes on Sundays and Wednesdays metoprolol succinate 25 mg tablet extended release 24 hr 12.5 mg PO DAILY 30 Days Qty: 15 1RF aspirin [Aspirin Childrens] 81 mg tablet,chewable 81 mg PO DAILY Qty: 30 0RF Follow-up/Referrals: Mp,KLAUDIA Chisholm [Primary Care Provider] - Time of Disposition: 13:49
== END 2024-03-30 14:18 | disposition home or self-care (01) ==
PROVIDERS: Emergency Provider Family Medicine; PCP Physician Assistant
DX: I48.91 Unspecified atrial fibrillation (principal); G47.33 Obstructive sleep apnea (adult) (pediatric); R94.31 Abnormal electrocardiogram [ECG] [EKG]; Z79.82 Long term (current) use of aspirin; Z79.899 Other long term (current) drug therapy
CPT/HCPCS: 36415; 71046; 80053; 82948; 83690; 84484; 85025; 85610; 85730; 93005; 96361; 96374; 99284; J7030

== ENCOUNTER 2024-04-18 13:37 | Outpatient (CLI) | payer BC, SELFPAY ==
--- OUTSIDE RECORDS SUMMARY | 2024-04-18 15:11 | XMS_ITS | CONTINUITY OF CARE DOCUMENT ---
Author Name anna castillo Address Unknown Organization [facility] Address [address] [address] [place] [address] Phone [phone] Care Team Providers Care Tactical Air Control Party Manager Name Role Phone Aditya Gayle MD Unavailable [phone] Zander Cerna MD Unavailable Zander Cerna MD Unavailable [phone] PROBLEMS Condition Status Date Provider Notes ETOH active Amber Mcdonald PALPITATIONS-03/27 HOLTER SR- SB HR 44-120 active ? Jim Norwood RN SOB active Aditya Olivia Hypercholesterolemia active Aditya Gayle MD PIERCE active Aditya Gayle MD DIABETES MELLITUS active - Buzz Dumont MD ATRIAL FIB LONE ON BETA BLOC KER NO COUMADIN active Buzz Dumont MD ENCOUNTERS Date Type Provider Location Encounter Diag nosis - In-person encounter Office Visit Aditya Gayle MD [place] [facility] - In-person encounter Office Visit Aditya Gayle MD [place] [facility] OSAHypercholesterolemiaSOB - In-person encounter Office Visit Buzz Dumont MD [place] [facility] - In-person encounter Office Visit Krystian Vincent MD [place] [facility] - In-person encounter Office Visit Buzz Dumont MD [place] [facility] - In-person encounter Office Visit Mian Baker MD [place] [facility] PALPITATIONS-03/27 HOLTER SR-SB HR 44-120 - In-person encounter Office Visit Buzz Dumont MD [place] [facility] ATRIAL FIB LONE ON BETA RJ [...] Jim Norwood RN pulse rate 65 /min iJm Norwood RN oxygen saturation, oximetry 99 % [...] Location 1 triglyceride, serum, fasting 337 mg/dL [facility] 1 HDL cholesterol, serum 53 mg/dL [facility] 1 LDL cholesterol, serum 123 mg/dL [facility] 1 cholesterol, serum 243 mg/dL [facility] 3 red blood cell distribution width, size density 45.6 fL [facility] immature granulocytes, percentage of total cells, blood 0.3 % [facility] - 3 nucleated red blood cells as percent of blood leukocytes 0.0 % [facility] - 3 red blood cell (erythrocyte) count, per high power field 0.0 10*3/UL [facility] eosinophils as percent of blood leukocytes 1.1 % [facility] - 3 neutrophils as percent of blood leukocytes 61.0 % [facility] - 3 Absolute Neutrophils 3.8 CELLS/UL [facility] 1.5 - 7.8 3 basophils as percent of blood leukocytes 0.8 % [facility] Absolute Basophils 0.1 CELLS/UL [facility] 0.0 - 0.2 3 monocytes as percent of blood leukocytes 7.7 % [facility] - 3 Absolute Monocytes 0.5 CELLS/UL [facility] 0.2 - 1.0 3 lymphocytes as percent of blood leukocytes 29.1 % [facility] - 3 Absolute Lymphocytes 1.8 CELLS/UL [facility] 0.9 - 3.9 3 mean platelet volume 10.8 (?) [facility] - 3 platelet count 193.0 THOUSAND/ UL [...] one tab. daily 5 - 2 Jono Dejeuss SOCIAL HISTORY Date Observation Value Provider social [...] per day none [facility] smoking status Non-smoker [facility] MENTAL STATUS Date Observation Value Provider assessment [...] Payer name Policy type / Coverage type [place] [employer] party ID [facility] [id number] [employer] (2) Medicaid [id number] TREATMENT PLAN Date Name Performer Cardiology: 6: Cholesterol: 243mg/dL LDL Cholesterol:123mg/dL HDL Cholesterol: 53mg/dL Triglyceride: 337mg/dL Aditya Baker Cardiology:Will atte mpt to get dental device. Otherwise, will schedule titration sleep study. Aditya Baker Cardiology:S/P succe ssful cardioverison. Will keep on Xarelto and Amiodarone for 3 months. His CHADs score is 0. Aditya [facility] Cardiology:The pt fina s admitted recently to [place] with new onset atrial fibrillation. Aditya [facility] Cardiology:The follo wing medications were removed from the medication list: Lovastatin 20 Mg Tabs (Lovastatin) ..... 1 tab by mouth daily Aditya [facility] Cardiology:BP today: 140/98 P rior BP: 127/64 (08/11/2010) The following medications were removed from the medication list: Aspirin 81 Mg Tabs (Aspirin) ..... One tab. daily Metoprolol Succinate 50 Mg Tb24 (Metoprolol succinate) ..... One tab. daily Aditya [facility] Cardiology [facility]:The pt fina s admitted recently to [place] with new onset atrial fibrillation. [facility] Cardiology:The pt fina s admitted recently to [place] with new onset atrial fibrillation. An attempt [...] today: 127/64 Prior BP: 130/89 (05/28/2010) S [facility] Echo Findings: Test considered to be [...] this problem includes: Toprol Xl 50 Mg [id number] (Metoprolol succinate) ..... 1 tab daily Aspirin 81 Mg Tabs (Aspirin) ..... One tab. daily BP today: 147/83 P rior BP: 129/68 (03/19/2010) Buzz Dumont MD follow up: H is updated medication list for this problem includes: Toprol Xl 50 Mg [id number]-[id number] (Metoprolol succinate) ..... 1 tab daily Aspirin [...] this problem includes: Toprol Xl 50 Mg Ym75g-tth (Metoprolol succinate) ..... 1 tab daily BP [...] this problem includes: Toprol Xl 50 Mg Ye98h-zme (Metoprolol succinate) ..... 1 tab daily BP today: 129/68 Prior BP: 151/78 (02/03/2010) S tress Echo Findings: Test considered to be negative by ECG. Baseline echo was normal and post exercise echo showed expected changes. (01/26/2010) Orders: E KG (CPT-70633) H olter Monitor 24 Hr (CPT-71778) B ASIC METABOLIC PANEL W/EGFR (52531) M AGNESIUM ([phone]) Mian Baker MD palpitations : T he following medications were removed from the medication list: Aspirin 325 Mg Tabs (Aspirin) ..... One tab daily His updated medication list for this problem includes: Toprol Xl 50 Mg So95a-yqw (Metoprolol succinate) ..... 1 tab daily BP today: 129/68 P rior BP: 151/78 (02/03/2010) Mian Baker MD palpitations Mian Baker MD Hosp follow up: B P today: 151/78 Prior BP: / () His updated medication list for this problem includes: Toprol Xl 50 Mg [id number]-usi (Metoprolol succinate) ..... 1 tab daily BP today: 151/78 Prior BP: / () S tress Echo Findings: Test considered to be negative by ECG. Baseline echo was normal and post exercise echo showed expected changes. (01/26/2010) Buzz Dumont MD Hosp follow up: H is updated medication list for this problem includes: Toprol Xl 50 Mg Di27f-iep (Metoprolol succinate) ..... 1 tab daily BP today: 151/78 Prior BP: / () S tress Echo Findings: Test considered to be negative by ECG. Baseline echo was normal and post exercise echo showed expected changes. (01/26/2010) Buzz Dumont MD Hosp follow up: H is updated medication list for this problem includes: Toprol Xl 50 Mg Fc98y-lmv (Metoprolol succinate) ..... 1 tab daily BP [...] Gayle MD 3 months com pleted SNOMED-CT: [id number] Current Medications Documented Aditya Gayle MD completed EKG Aditya Gayle MD completed SNOMED-CT: [id number] Current Medications Documented Aditya Gayle MD completed EKG Mian Baker MD completed
--- OUTSIDE RECORDS SUMMARY | 2024-04-18 15:11 | XMS_ITS | Data Portability ---
Author Organization ADVEY Yasmeen FITZGERALD Address [address] [place] [address] Care Team Providers Care Internet Manager Name Role Phone CODINED CADET Primary Care Provider Unavailab le Assessment No assessment recorded. Plan of Treatment Reminders Order Date Submit Date Provider Last Modified By Organization Details Last Modified Time Details Appointments None recorded. Lab CMP, serum or plasma 2023 024 [facility], [address] [place], [address], 5 13:44:22 lipid panel, serum 2023 024 [facility], [address] [place], [address], 5 13:41:13 TSH + free T4, serum [facility] [address] [place], [address], 4 09:31:51 CBC w/ auto diff [address] [facility], [address] [place], [address], 4 10:57:26 CMP, serum or plasma [address] [facility], [address] [place], [address], 4 10:57:26 lipid panel, serum [address] [facility], [address] [place], [address], 4 10:57:26 PSA, serum or plasma [address] [facility], [address] [place], [address], 4 10:57:26 testostero ne, free + total, serum 2023 [facility], [address] [place], [address], 4 12:24:27 vitamin B12 + folate, serum or blood [address] [facility], [address] [place], [address], 4 10:57:26 HbA1c (hemoglobi n A1c), blood [address] [facility], [address] [place], [address], 4 10:57:26 Referral None recorded. Procedures None recorded. Surgeries None recorded. Imaging XR, thoracic spine, 2 view 2023 024 [facility], [address], [place], [address], 4 10:06:33 MRI, thoracic spine, w/o contrast 2023 024 [email or web address], [address], [place], [address], 4 15:48:53 Medication Orders meloxicam 15 [address] tablet [address] [facility][id number], [address], [place], [address], 17:55:10 Patient TargetsNo targets recorded. Patient InstructionsNo instructions recorded. Reason for Referral None Reported. Results Created Date Observation Date Name Description Value Unit Range Abnormal Flag Note LastModifiedBy Organization Detail LastModifiedTime 08/10/19 24 08/09/2023 XR, thora cic spine , 2 view No observ ation record ed. [facility] [address], [place], [address], 08/16/2023 18:11:22 03/21/19 25 03/21/2024 CT, brain , w/o contr ast No observ ation record ed. [address], [place], [address], 03/23/2024 00:32:52 03/30/1903/30/2024 XR, chest , 2 view No observ ation record ed. [address], [place], [address], 04/02/2024 09:01:08 Result Notes None recorded. Problems Name Problem SNOMED Code Status Onset Date Resolution Date Notes Provider Name and Address Organization Details Recorded Time Body mass index 25-29 - overweight 961487838 Active 2023 GONZALO Gamboa Attn: Juan Antonio gaxiola,[address], [place], [address], [facility] 4 11:54:58 Osteoarthritis 150976996 Active 2023 GONZALO Gamboa Attn: Juan Antonio gaxiola,[address], [place], [address], [facility] 4 11:55:08 Chronic low back pain 637159806 Active 2023 GONZALO Gamboa Attn: Juan Antonio gaxiola,[address], [place], [address], [facility] 4 11:55:26 Thoracic back pain 106084913 Active 2023 GONZALO Gamboa Attn: Juan Antonio gaxiola,[address] [place], [address], [facility] 4 11:55:48 Benign essential hypertension 9126430 Active 2023 GONZALO Gamboa Attn: Juan Antonio gaxiola,[address], [place], [address], [facility] 4 11:57:13 Long-term drug therapy Active 2023 GONZALO Gamboa Attn: Juan Antonio gaxiola,[address] [place], [address], [facility] 4 01:29:35 Hyperlipidemia 90745963 Active 2023 GONZALO Gamboa Attn: Juan Antonio gaxiola,[address], [place], [address], [facility] 4 01:29:46 Body mass index 20-24 - normal 261764103 Active 2023 GONZALO Gamboa Attn: Juan Antonio gaxiola,[address], [place], [address], [facility] 4 01:30:12 Problem Notes None recorded. Procedures Surgical History Date Name Laterality Status Provider Name and Address Organization Details Recorded Time Back Surgery completed Ruy Vallejo [place] - [facility] 08/09/2023 15:22:37 Imaging Results Imaging Date Name Status LastModified by Organ [facility] Details LastModified Time 08/09/2023 XR, thoracic spine, 2 view completed [facility] [address], [place], [address], 08/16/2023 18:11:22 03/21/2024 CT, brain, w/o contrast completed [address], [place], [address], 03/23/2024 00:32:52 03/30/2024 XR, chest, 2 view completed [email or web address] [address], [place], [address], 04/02/2024 09:01:08 Procedure Notes None recorded. Medical Equipment None [...] Updated DateTime 4 170.18 cm 25.2 kg/m2 41059.9 3 g 20 /min 99 % 99 % 60 /min 148 mm[Hg] 88 mm[Hg] Ruy Vallejo [place] - [facility] 4 15:32:39 Date Recorded Systolic blood pressure Diastolic blood pressure Systolic blood pressure Diastolic blood pressure Provider Name and Address Organization Details Last Updated DateTime 08/09/2023 132 mm[Hg] 84 mm[Hg] 140 mm[Hg] 80 mm[Hg] GONZALO Gamboa Attn: Accounting ,[address] [place], [address] , [facility] 15:59:01 Date Recorded Body height Body mass index (BMI) Body weight Heart rate Oxygen saturation Oxygen saturation in Arterial blood by Pulse oximetry Systolic blood pressure Diastolic blood pressure Provider Name and Address Organization Details Last Updated DateTime 170.18 cm 24.6 kg/m2 77897.2 8 g 74 /min 97 % 97 % 122 mm[Hg] 68 mm[Hg] Leydi Garcia MA [facility] 17:19:33 Date Recorded Systolic blood pressure Diastolic blood pressure Provider Name and Address Organization Details Last Updated DateTime 10/03/2023 128 mm[Hg] 80 mm[Hg] GONZALO Gamboa Attn: Accounting, [place], [address], [facility] 10/03/2023 17:55:33 Social History Question Answer Notes LastModified by Organizat ion Details LastModified Time Tobacco Smoking Status Never Smoker Ruy Vallejo MA [facility], [facility] 08/09/2023 15:23:48 Do You Have An Advance [...] Skin Problems N Anemia N Heart Attack (OR) N Anxiety Disorder Y Diabetes N Muscle, Joint, or Bone Problems Y Seizures/Epilepsy N Acid Reflux (GERD) N Cancer N Stroke N Asthma N Allergies N High Cholesterol Y Hepatitis N Liver Disease N Headaches N Heart Failure N Osteoporosis N Past Encounters Encounter ID Performer Location Encounter Start Date Encounter Closed Date Diagnosis/Indication Diagnosis SNOMED-CT Code Diagnosis ICD10 Code Diagnosis Note [id number] GONZALO Gamboa [facility] [place] [address] [place] [address] 08/09/2023 15:10:02 08/09/2023 16:07:03 Body mass index 25-29 - overweight 860159534 Z68.25 Thoracic back pain 64865 8004 M54.6 More problemati c and acute at this time is thoracic back pain. Check baseline x-ray of the thoracic spine with plans to proceed with an MRI to evaluate disc spacing and nerve root exits. Chronic low back pain 27 0015079 M54.50 Chronic low back pain with history of lumbar L5 diskectomy Osteoarthritis 361367681 M19.90 Underlying osteoarthr itis noted per patient report Cholesterol screening 27 4035070 Z13.220 Fasting lipid panel due Diabetes m ellitus screening 221509399 Z13.1 Annual A1c screening due Screening for malignant neoplasm of prostate 549965524 Z12.5 Annual PSA due Long-term drug therapy 384485755 Z79.899 Routine CBC and CMP labs ordered Thyroid di sorder screening 057540979 Z13.29 Routine thyroid function panel ordered Endocrine/ metabolic screening 400769948 Z13.228 Screening testostero ne per patient request and check vitamin B12 and folate. Benign ess ential hypertension 8649745 I10 Patient is running around 140/80 at this time, borderline control currently on metoprolol succinate ER 25 mg daily. He will continue to monitor pressures, at this time we will keep dosing at 25 mg. [id number] GONZALO Gamboa [facility] [place] [facility] [address] [place] [address] 10/03/2023 17:02:45 10/03/2023 18:09:39 Hyperlipidemia 71033044 E78.5 Fasting lipid panel is due to monitor for improvemen t with dietary Long-term drug therapy 309778410 Z79.899 Routine CMP lab due Chronic low back pain 27 8876548 M54.50 Chronic low back pain with history of lumbar L5 diskectomy Adult heal th examination 513482133 Z00.00 Annual wellness exam complete Body mass index 20-24 - normal 256333684 Z68.24 BMI is 24.6 Health Concerns Section Related Observation LastModified by Organization Detai ls LastModified Time None Recorded Concern Status LastModified by Organization Details LastModified Time None Recorded Advance Directives Directive N: Payers Encounter Date Sequence Insurance Name Policy Number Policy Colindres Covered Member ID Colindres Member ID Guarantor Name 08/09/2023 1 [place] [id number] Naif Yu [id number] Naif Yu 10/03/2023 1 [place] [id number] 3 Naif Yu [id number] Naif Ferristanvir Notes Date Note Type Note Provider Name [...] at least a year. Dr. Bernabe in [place]. Nothing is helping the middle back. There is a knot feeling and jabbing feeling, and numbness. Sharp pains that occur for seconds in the posterior left shoulder and upper arm/side. He does have hx of CLBP with hx of L5 discectomy type procedure. Hx of pain management lumbar spine, with multiple injections in , Dr. Herbert in [place].HypertensionRe ported bypatient.Notes:off metoprolol ER now. BP has been stable at home. 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 GONZALO Gamboa Attn: Accounting,[address] , [place], [address], [facility] 08/21/2023 11:57:34 10/03/2023 text/html Back PainReporte d [...] medication therapy. GONZALO Gamboa Attn: Accounting,[address] , [place], [address], [facility] 10/16/2023 01:30:40
--- NOTE | 2024-05-05 19:07 | P.SLEEP_ITS ---
Sleep Study Date of Study: 04/18/24 Ordering Provider: Taylor Mccurdy, [employer] Interpreting Physician: Omaira Delgadillo MD Sleep Study Type: Polysomnogram Height: 1.7 m Weight: 74.843 kg Body Mass Index: 25.8 Neck Circumference (inches): 16 [place]: 10 Reason for Sleep Study Constant daytime fatigue, atrial fibrillation Sleep History Naif Yu is a 48-year-old man with constant fatigue which has been going on for several months. He has a history of obstructive sleep apnea but has had 100 lb weight loss and quit using CPAP. He has had atrial fibrillation in the setting of alcohol excess and obesity with a cardioversion in the past. His cardiology note indicates that when he became sober and lost weight he went off metoprolol and stopped using CPAP. On March 20, 2024 he presented to the ER with rapid palpitations intermittently over 2 weeks with elevated heart rates on his smart watch. In the ER, he was in rapid atrial fibrillation with a rate in the 150s. He improved on a diltiazem drip. Echocardiogram showed normal LV size and function EF 60-65%. PASP was 50 mmHg. He never wakes at night with heartburn, belching or coughing.??He occasion snores, however never snores loudly enough that others complain. He frequent has trouble sleeping when he has a cold. He rarely wakes up gasping for breath during the night. He rarely has breathing problems at night observed by others. He never sweats excessively at night. He occasional notices his heart pounding or beating irregularly during the night. He occasional falls asleep during the day. He never falls asleep involuntarily, never falls asleep while driving. He never experiences loss of muscle tone with strong emotion. 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 He never feels paralyzed on waking or falling asleep. He rarely experiences vivid dreams upon waking or falling asleep. He never feels afraid of going to sleep. He rarely has nightmares. He occasionally recalls his dreams. He constantly has thoughts racing through his mind. He rarely feels sad or depressed. He frequent feels anxiety. He rarely notices parts of his body jerk. He never kicks during the night. He rarely feels crawling or aching feelings in his legs. He never feels leg pain at night. He never has morning jaw pain, rarely grinds his teeth at night. He constantly feels bothered by pain during the day, occasionally awakened by pain during the night. He frequently wakes up feeling stiff in the morning, and he frequently wakes feeling sore or achy. He frequently awakens with pain in his neck, spine, or joints. Normal bedtime is between 10:00 p.m. and 12 midnight, falling asleep within 15 minute, waking several times during the night and the awakenings are not for any clear reason. Sometimes he goes to the bathroom. Wake time is between 5:00 a.m. and 8:00 a.m.. He typically gets 8 hours of sleep per night. He takes naps in the day, and sometimes he feels refreshed after a 10-15 minute nap. He is usually drowsy on waking. He feels better in the afternoon compared to other times of day. He occasionally awakens with morning headaches. Habits:??Tobacco:never smoker Caffeine:yes, amount not known Alcohol: former Recreational substances: marijuana PMFSH Past Medical History Medical History Obstructive sleep apnea no longer on CPAP after a greater than 100 lb weight loss Paroxysmal atrial fibrillation Surgical History Surgical History History of cardioversion History of lumbar surgery Family History Family History Grandparent A-fib Diabetes mellitus Mother Chronic obstructive pulmonary disease Diabetes mellitus Hypertension Grandparent Chronic obstructive pulmonary disease Cervical cancer Grandparent Chronic obstructive pulmonary disease Other Lung cancer Social History Social History Social History: Surrogate medical decision maker: shweta Kelly ([phone]). Code status: Full code. Smoking status: Never smoker Second hand tobacco smoke exposure: Yes Alcohol intake: former Substance use: current Substance use type: marijuana Do You Feel Safe in your Home?: Yes Lack of Transportation: No Lack of Food: Never True Current Housing: I Have Housing Concerned About Future Housing: No Difficulty Paying Gas/Electric Bills: No Difficulty Paying for Meds: No Currently Unemployed: No Education: High School Diploma/GED Difficulty w/ Childcare or Family Care: No Spiritual care concerns: No Medications Home Medications ?Medication ?Instructions ?Recorded ?Confirmed ?Type testosterone cypionate 200 mg/mL 80 mg subcut .twice weekly 03/20/24 03/20/24 History intramuscular oil aspirin 81 mg chewable tablet 81 mg PO DAILY #30 tabs 03/21/24 Rx (Aspirin [facility]) metoprolol succinate 25 mg 12.5 mg (1/2 x 25 mg) PO DAILY 30 03/21/24 Rx tablet,extended release 24 hr days #15 tabs Sleep Procedure A full night polysomnogram using the Revel Touch multi-channel system recorded the standard physiologic parameters including EEG, EOG, submentalis EMG, anterior tibialis EMG, EKG, body position, nasal and oral airflow using nasal pressure sensor and thermistor. Respiratory parameters of chest and abdominal movements were recorded with Respiratory Inductance Plethysmography belts. Oxygen saturation was recorded by pulse oximetry. Video monitoring was also performed. Sleep stages, periodic limb movements, and EEG arousals were scored in 30 second epochs according to the criteria of the AASM Scoring Manual. The Apnea-Hypopnea Index was calculated using CMS guidelines for definition of hypopnea while scoring respiratory events. Sleep Architecture The total recording time was 462.8 minutes. The total sleep time was 379.0 minutes. Sleep latency was 4.4 minutes. REM latency was 175.0 minutes. Sleep efficiency was 81.9%. The patient had 32 awakenings for an awakening index of 5.1. Wake after sleep onset time was 78.5 minutes. The patient spent 51.5 minutes, 13.6% of total sleep time in Stage N1. The patient spent 236.0 minutes, 62.3% in Stage N2. The patient spent 4.5 minutes, 1.2% in Stage N3. The patient spent 87.0 minutes, 23.0% in Stage REM sleep. Respiratory Analysis The patient had 35 hypopneas, 34 obstructive apneas, 1 mixed apnea, and no central apneas for an overall Apnea Hypopnea Index of 10.9. The REM Apnea Hypopnea Index was 2.1. The NREM Apnea Hypopnea Index was 13.8. The patient had a Central Apnea Hypopnea Index of 0. There were no Respiratory Effort Related Arousals. The Respiratory Disturbance Index is 15.7 events per hour. There was no evidence of Sergo-Ashraf Respirations. Arousals There were 139 total arousals for an arousal index of 22.0. There were 58 spontaneous arousals for an index of 9.2. There were 62 arousals due to respiratory events for an index of 9.8. There were 15 arousals due to periodic limb movements for an index of 2.4. There were 4 arousals due to isolated limb movements for an index of 0.6. Periodic Limb Movements The patient had 34 isolated limb movements with an index of 5.4. The patient had 98 periodic limb movements with an index of 15.5. Patient had a total of 132 limb movements with a total limb movement index of 20.9. Oximetry Data The patient had an average oxygen saturation of 95.1% in sleep with a minimum oxygen saturation of 85% and a maximum oxygen saturation of 98%. The patient had 60 oxygen desaturations that were 4% or greater resulting in an Oxygen Desaturation Index of 9.5. The patient spent 4 minutes, 0.9% of total sleep time with an oxygen saturation below 88%. Snoring Profile Snoring was mild. Cardiac Profile The EKG showed normal sinus rhythm, average pulse rate of 55.7 bpm with a minimum pulse of rate of 44 bpm and a maximum pulse rate of 84 bpm. EEG Profile Unremarkable, no evidence of seizures. Assessment and Plan Assessment and Plan (1) Obstructive sleep apnea: Code(s): G47.33 - Obstructive sleep apnea (adult) (pediatric) Status: Acute Assessment and Plan: This basic nocturnal polysomnogram on 04/18/2024 shows overall moderate obstru ctive sleep apnea, the apnea-hypopnea index using a 3% criteria is 16.5 with desaturation to 85% and mild snoring. He spent 4 minutes below 88%, 0.9% the study. His events were much worse in the supine position, the supine apnea- hypopnea index is 63.5. He did not spend much of the night in the supine position. He only achieved REM in the lateral position. No atrial fibrillation was seen during the study. He meets criteria for treatment and I would recommend in-lab CPAP titration in order to assure that he has supine REM at an optimal pressure. He had sleep apnea in the past and wore CPAP. His body mass index is now perfect 25.8. However he now is having intermittent atrial fibrillation. Treating his obstructive sleep apnea especially during supine REM will help him stay out of atrial fibrillation. Alcohol use can aggravate obstructive sleep apnea and atrial fibrillation. Data The data obtained during this sleep study is adequate for interpretation. Certification This sleep study has been reviewed by a board certified sleep medicine physician.
[2024-05-05 19:32] VITALS: BMI 25.8
== END 2024-04-19 07:40 | disposition home or self-care (01) ==
LOC: ANHCSM 13:41
PROVIDERS: PCP Physician Assistant; Visit Provider Nurse Practitioner Adult Health
DX: G47.33 Obstructive sleep apnea (adult) (pediatric) (principal); I48.92 Unspecified atrial flutter
CPT/HCPCS: 95810

== ENCOUNTER 2024-06-15 08:19 | Outpatient (CLI) | payer BC, SELFPAY ==
--- OUTSIDE RECORDS SUMMARY | 2024-06-16 11:01 | XMS_ITS | Data Portability ---
Author Organization DAVEY Yasmeen FITZGERALD Address [address] [place] [place] [address] Care Team Providers Care Saw Setter Name Role Phone NED BACH Primary Care Provider Unavailab le Assessment Encounter Date Assessment Date Assessment LastModified by Organization Details LastModified Time 05/15/2024 05/15/2024 labs UTD from february 2024. [email or web address] Not available 05/15/2024 15:33:04 Plan of Treatment Reminders Order Date Submit Date Provider Last Modified By Organization Details Last Modified Time Details Appointments None recorded. Lab lipid panel, serum 2024 025 [email or web address] [facility], [address] [place], [address], 5 15:39:22 CMP, serum or plasma [email or web address] [facility], [address] [place], [address], 5 15:39:22 CMP, serum or plasma 2023 024 [facility], [address] [place], [address], 5 13:44:22 lipid panel, serum 2023 024 [facility], [address] [place], [address], 5 13:41:13 TSH + free T4, serum [facility] [address] [place], [address], 4 09:31:51 CBC w/ auto diff [address] [facility], [address] [place], [address], 4 10:57:26 CMP, serum or plasma [address] [facility], [address] [place], [address], 4 10:57:26 lipid panel, serum [address] [facility], [address] [place], [address], 4 10:57:26 PSA, serum or plasma [address] [facility], [address] [place], [address], 4 10:57:26 testostero ne, free + total, serum 2023 024 KAREN [facility], [address] [place], [address], 4 12:24:27 vitamin B12 + folate, serum or blood [address] [facility], [address] [place], [address], 4 10:57:26 HbA1c (hemoglobi n A1c), blood [address] [facility], [address] [place], [address], 4 10:57:26 Referral None recorded. Procedures None recorded. Surgeries None recorded. Imaging XR, thoracic spine, 2 view 2023 [facility], [address], [place], [address], 4 10:06:33 MRI, thoracic spine, w/o contrast [address] [facility], [address], [place], [address], 4 15:48:53 Medication Orders meloxicam 15 mg tablet 2023 024 [id number], [address], [place], [address], 4 17:55:10 Patient TargetsNo targets recorded. Patient Instructions Encounter Date Encounter Id Patient Instructions Last Modified By Organization Details Last Modified Time 05/15/2024 [id number] A healthy lifestyle: care instructions [place] [id number] Not available 05/15/2024 15:38:07 Reason for Referral None Reported. Results Created Date Observation Date Name Description Value Unit Range Abnormal Flag Note LastModifiedBy Organization Detail LastModifiedTime 08/10/19 24 08/09/2023 XR, thora cic spine , 2 view No observ ation record ed. [facility] [address], [place], [address], 08/16/2023 18:11:22 03/21/1903/21/2024 CT, brain , w/o contr ast No observ ation record ed. [address] [facility] [address], [place], [address], 03/23/2024 00:32:52 03/30/19 25 03/30/2024 XR, chest , 2 view No observ ation record ed. [address] [facility] [address], [place], [address], 04/02/2024 09:01:08 04/20/19 25 03/20/2024 US, echoc ardio gram No observ ation record ed. [facility] Not Available 2024 10:58:27 04/22/19 25 04/21/2024 XR, knee, 3 view No observ ation record ed. [email or web address] [facility] [address] [facility], [place], [address], 04/27/2024 13:24:28 05/08/19 25 05/07/2024 medic al recor d reque st* No observ ation record ed. [facility] - Pulmonology Pulmonary & Sleep Medicine [address], [facility] [address], [place], [address], 05/11/2024 16:26:37 05/22/19 25 04/18/2024 sleep study , diagn ostic (PROC ) No observ ation record ed. BAR[facility] Not Available 2024 12:49:00 Result Notes None recorded. Problems Name Problem SNOMED Code Status Onset Date Resolution Date Notes Provider Name and Address Organization Details Recorded Time Body mass index 25-29 - overweight 357847110 Active 2023 GONZALO Gamboa Attn: Juan Antonio gaxiola,[address] [place], [address], [facility] 4 11:54:58 Osteoarthritis 623715003 Active 2023 GONZALO Gamboa Attn: Juan Antonio gaxiola,[address] [place], [address], [facility] 4 11:55:08 Chronic low back pain 829829441 Active 2023 GONZALO Gamboa Attn: Juan Antonio gaxiola,[address] [place], [address], [facility] 4 11:55:26 Thoracic back pain 983941646 Active 2023 GONZALO Gamboa Attn: Juan Antonio gaxiola,[address] [place], [address], [place] [facility] 4 11:55:48 Benign essential hypertension 4611269 Active 2023 GONZALO Gamboa Attn: Timman gaxiola,[address] [facility], [place], [address], [place] [facility] 4 11:57:13 Long-term drug therapy Active 2023 GONZALO Gamboa Attn: Timman gaxiola,[address] [facility], [place], [address], [place] [facility] 4 01:29:35 Hyperlipidemia 16365607 Active 2023 GONZALO Gamboa Attn: Juan Antonio khalida,[address] [place], [address], [place] [facility] 4 01:29:46 Paroxysmal atrial fibrillation 451683822 Active 2024 GONZALO Gamboa Attn: Juan Antonio gaxiola,[address] [facility], [place], [address], [place] [facility] 5 15:37:39 Steatotic liver disease 241101373 Active 2024 GONZALO Gamboa Attn: Juan Antonio khalida,[address] [facility], [place], [address], [place] [facility] 5 15:37:41 Overweight 492821902 Active 2024 GONZALO Gamboa Attn: Juan Antonio gaxiola,[address] [place], [address], [place] [facility] 5 15:37:42 Obstructive sleep apnea syndrome 33449975 Active 2024 GONZALO Gamboa Attn: Juan Antonio gaxiola,[address] [place], [address], [place] [facility] 5 15:38:04 Problem Notes None recorded. Procedures Surgical History Date Name Laterality Status Provider Name and Address Organization Details Recorded Time Back Surgery completed Ruy Vallejo [place] [facility] 08/09/2023 15:22:37 Imaging Results Imaging Date Name Status LastModified by Organization Details LastModified Time 08/09/2023 XR, thoracic spine, 2 view completed [facility] [address], [place], [address], 08/16/2023 18:11:22 03/21/2024 CT, brain, w/o contrast completed [address], [place], [address], 03/23/2024 00:32:52 03/30/2024 XR, chest, 2 view completed [place] [id number] [facility] [address], [place], [address], 04/02/2024 09:01:08 03/20/2024 US, echocardiogram completed [facility] Inform ation not available 04/19/2024 10:58:27 04/21/2024 XR, knee, 3 view completed [address] [place], [address], 04/27/2024 13:24:28 05/07/2024 medical record request* completed [address] - Pulmonology Pulmonary & Sleep Medicine [address], [facility] [address], [place], [address], 05/11/2024 16:26:37 04/18/2024 sleep study, diagnostic (PROC) completed [facility] Information not available 05/21/2024 12:49:00 Procedure Notes None recorded. Medical Equipment None Reported. Allergies No known drug allergies Medications Name Sig Start Date Stop Date Status Note LastModified by Organization Details LastModified Time vitamin b-1 100 mg tabs 05/15 completed Not Available Not Available Not Available cyclobenzapri ne 10 mg tablet Take 1 tablet as needed by oral route for 10 days. active Not Available Not Available No t Available clonidine HCl 0.1 mg tablet 08/08 completed Not Available Not Available Not Available trazodone 50 mg tablet 08/08 completed Not Available Not Available Not Available metoprolol succinate ER 50 mg tablet,extend ed release 24 hr TAKE 1 TABLET BY MOUTH EVERY DAY active Not Available Not Available No t Available meloxicam 15 mg tablet TAKE 1 [...] MG) BY MOUTH DAILY FOR 30 DAYS 05/15 completed Not Available Not Available Not Available lorazepam 1 mg tablet 08/08 completed Not Available Not Available Not Available naproxen 500 mg tablet TAKE 1 TABLET BY MOUTH EVERY 12 HOURS FOR 8-10 DAYS TAKE WITH FOOD 05/15 completed Not Available Not Available Not Available [...] Updated DateTime 4 170.18 cm 25.2 kg/m2 01172.9 3 g 20 /min 99 % 99 % 60 /min 148 mm[Hg] 88 mm[Hg] Ruy Vallejo MA [facility] 4 15:32:39 Date Recorded Systolic blood pressure Diastolic blood pressure Systolic blood pressure Diastolic blood pressure Provider Name and Address Organization Details Last Updated DateTime 08/09/2023 132 mm[Hg] 84 mm[Hg] 140 mm[Hg] 80 mm[Hg] GONZALO Gamboa Attn: [place], [address] , [facility] 4 15:59:01 Date Recorded Body height Body mass index (BMI) Body weight Heart rate Oxygen saturation Oxygen saturation in Arterial blood by Pulse oximetry Systolic blood pressure Diastolic blood pressure Provider Name and Address Organization Details Last Updated DateTime 4 170.18 cm 24.6 kg/m2 41071.2 8 g 74 /min 97 % 97 % 122 mm[Hg] 68 mm[Hg] Leydi Garcia MA [facility] 4 17:19:33 Date Recorded Systolic blood pressure Diastolic blood pressure Provider Name and Address Organization Details Last Updated DateTime 10/03/2023 128 mm[Hg] 80 mm[Hg] GONZALO Gamboa Attn: Accounting[address] [place], [address], [facility] 10/03/2023 17:55:33 Date Recorded Body height Body mass index (BMI) Body weight Respiratory rate Oxygen saturation Oxygen saturation in Arterial blood by Pulse oximetry Heart rate Systolic blood pressure Diastolic blood pressure Provider Name and Address Organization Details Last Updated DateTime 5 170.18 cm 26.9 kg/m2 93938.8 9 g 20 /min 97 % 97 % 74 /min 126 mm[Hg] 82 mm[Hg] Ruy Vallejo MA [facility] 5 15:16:56 Date Recorded Systolic blood pressure Diastolic blood pressure Provider Name and Address Organization Details Last Updated DateTime 05/15/2024 120 mm[Hg] 80 mm[Hg] GONZALO Gamboa Attn: Accounting[address] [place], [address], [facility] 05/15/2024 15:37:17 Social History Question Answer Notes LastModified by Organizat ion Details LastModified Time Tobacco Smoking Status Never Smoker Ruy Vallejo MA null, [facility] 08/09/2023 15:23:48 Do You Have An Advance [...] Date Of Your Most Recent Tobacco Screening? 05/15/2024 Information not available 05/15/2024 What Is Your Relationship Status? Information not [...] What Date Was Tobacco Cessation Counseling Provided? 05/15/2024 Information not available 05/15/2024 Do You Or Have You Ever Used [...] LastModified by Organization Details LastModified Time Father Harmful pattern of use of alcohol [email or web address] Not available 2023 15:23:16 Father Diabetes mellitus [email or web address] Not available 2023 15:23:21 Father Migraine [email or web address] Not availabl e 08/09/2023 15:23:31 Mother Disorder of thyroid gland tcarterma Not available 2023 15:23:25 Medical History Condition Response Coronary Artery Disease N Other N Atrial Fibrillation Y High Blood Pressure Y Thyroid Problems N Kidney or Bladder Problems N Depression N COPD N Blood Clots N GI Problems N Skin Problems N Anemia N Heart Attack (CA) N Diabetes N Anxiety Disorder Y Muscle, Joint, or Bone Problems Y Seizures/Epilepsy N Acid Reflux (GERD) N Cancer N Stroke N Allergies N Asthma N High Cholesterol Y Hepatitis N Liver Disease N Headaches N Osteoporosis N Heart Failure N Past Encounters Encounter ID Performer Location Encounter Start Date Encounter Closed Date Diagnosis/Indication Diagnosis SNOMED-CT Code Diagnosis ICD10 Code Diagnosis Note [id number] Ritchie Damon MD [facility] [place] [address] [place] [address] 08/09/2023 15:10:02 08/09/2023 16:07:03 Body mass index 25-29 - overweight 369764076 Z68.25 Thoracic back pain 39490 8004 M54.6 More problemati c and acute at this time is thoracic back pain. Check baseline x-ray of the thoracic spine with plans to proceed with an MRI to evaluate disc spacing and nerve root exits. Chronic low back pain 27 5253054 M54.50 Chronic low back pain with history of lumbar L5 diskectomy Osteoarthritis 361064122 M19.90 Underlying osteoarthr itis noted per patient report Cholesterol screening 27 7126719 Z13.220 Fasting lipid panel due Diabetes m ellitus screening 210078255 Z13.1 Annual A1c screening due Screening for malignant neoplasm of prostate 632883075 Z12.5 Annual PSA due Long-term drug therapy 817475240 Z79.899 Routine CBC and CMP labs ordered Thyroid di sorder screening 052256613 Z13.29 Routine thyroid function panel ordered Endocrine/ metabolic screening 301441140 Z13.228 Screening testostero ne per patient request and check vitamin B12 and folate. Benign ess ential hypertension 6624029 I10 Patient is running around 140/80 at this time, borderline control currently on metoprolol succinate ER 25 mg daily. He will continue to monitor pressures, at this time we will keep dosing at 25 mg. [id number] Ritchie Damon MD [facility] [employer] [address] [place] [address] 10/03/2023 17:02:45 10/03/2023 18:09:39 Hyperlipidemia 83954410 E78.5 Fasting lipid panel is due to monitor for improvemen t with dietary Long-term drug therapy 061490191 Z79.899 Routine CMP lab due Chronic low back pain 27 6432508 M54.50 Chronic low back pain with history of lumbar L5 diskectomy Adult heal th examination 432247268 Z00.00 Annual wellness exam complete Body mass index 20-24 - normal 273986493 Z68.24 BMI is 24.6 [id number] Ritchie Damon MD [facility] [employer] [address] [place] [address] 05/15/2024 14:58:06 05/15/2024 16:08:18 Paroxysmal atrial fibrillation 396545547 I48.0 pt is seeing cardiology routinely. has had hospital stay and ER visits for a-fib. Atrial fibrillati on is paroxysmal at this time he does have metoprolol on board with extra dosing available for p.r.n. use. He is going to be getting a CPAP titration study in order to get new settings and parameters in place since he has not been. Cardiology anticipate s this will help nearly eliminate his paroxysmal AFib Hyperlipidemia 10659262 E78.5 Patient has elected to have diet and exercise manage of hose hyperlipid emia. He is due for updated labs again fasting in July. LDL was 132 in February. Body mass index 25-29 - overweight 034818049 Z68.25 BMI 26.9 Overweight 413447528 E66 .3 Steatotic liver disease 372631900 K76.0 History of fatty liver noted Long-term drug therapy 205059585 Z79.899 Obstructiv e sleep apnea syndrome 46108337 G47.33 cpap titration in may scheduled. Health Concerns Section Related Observation LastModified by Organization Detai ls LastModified Time None Recorded Concern Status LastModified by Organization Details LastModified Time None Recorded Advance Directives Directive N: Payers Encounter Date Sequence Insurance Name Policy Number Policy Colindres Covered Member ID Colindres Member ID Guarantor Name 08/09/2023 1 [place] [id number] Naif Yu [id number] Naif Ferrisponeri 10/03/2023 1 [place] [id number] 3 Naif Yu [id number] Naif Ferrisponeri 05/15/2024 1 [place] [id number] Naif Yu [id number] Naif Yu Notes Date Note Type Note Provider Name and Address Organization Details Recorded Time 4 text/html Back PainReported bypatient.Aggravating Factors:movement/position ing Associated Symptoms:no fever; no weak limbs; no numbness of the legs/feet; no tingling; no incontinence; no shortness of breathNotes:Mid-back x 1 year, painful, spasms, and getting worse and uncomfortable to sleep. seeing Chiropractor routinely for at least a year. Dr. Bernabe in [place]. Nothing is helping the middle back. There is a knot feeling and jabbing feeling, and numbness. Sharp pains that occur for seconds in the posterior left shoulder and upper arm/side. He does have hx of CLBP with hx of L5 discectomy type procedure. Hx of pain management lumbar spine, with multiple injections in , Dr. Herbert in [place].HypertensionReporte d bypatient.Notes:off metoprolol ER now. BP has been stable at home. 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 GONZALO Gamboa Attn: Accounting,[address] [facility], [place], [address], [place] [facility] 08/21/2023 11:57:34 4 text/html Back PainReported bypatient.Notes:Patient has chronic low back pain and this continues to be a source of most of his symptoms. He does exercise and eat healthy and that does help to a certain degree with managing his symptoms but just his chronic pain history structurally remains problematic.Hyperlipidemi aReported bypatient.Notes:Patient has a history of hyperlipidemia but declines any medication therapy. GONZALO Gamboa Attn: Accounting,[address] [facility], [place], [address], [facility] 10/16/2023 01:30:40 text/html Atrial FibrillationReported bypatient.Notes:Atrial fibrillation is paroxysmal at this time he does have metoprolol on board with extra dosing available for p.r.n. use. He is going to be getting a CPAP titration study in order to get new settings and parameters in place since he has not been. Cardiology anticipates this will help nearly eliminate his paroxysmal AFibBack PainReported bypatient.Notes:Patient has chronic low back pain and this continues to be a source of most of his symptoms. He does exercise and eat healthy and that does help to a certain degree with managing his symptoms but just his chronic pain history structurally remains problematic.Hyperlipidemi aReported bypatient.Notes:Patient has a history of hyperlipidemia but declines any medication therapy.KneeReported bypatient.Notes:seeing [facility] ortho and has large knee brace in place. complete tear MCL. getting P.T. GONZALO Gamboa Attn: Accounting,[address] [facility], [place], [address], [facility] - [facility] 06/09/2024 15:07:15
--- OUTSIDE RECORDS SUMMARY | 2024-06-16 11:01 | XMS_ITS | Clinical Summary ---
Author Organization [facility] Address [address] [place] [address] Care Team Providers Care Gas Desulfurizer Name Role Phone Unavailable Primary Care Provider Unavailabl e Allergies No known active allergies Medications aspirin (IVETTE CHEWABLE) 81 mg Tablet, Chewable Take 1 Tablet by mouth daily. 03/21/2024 Active metoprolol succinate (TOPROL XL) 25 mg Extended Release 24 hour tablet TAKE 1/2 (HALF A) TABLET (12.5 MG) BY MOUTH DAILY FOR 30 DAYS 03/21/2024 Active cyclobenzaprine (FLEXERIL) 5 mg Tablet Take 5 mg by mouth daily at bedtime. Active Active Problems No known active problems Encounters Date Type Department Care Team Description 05/29/2024 External Device Data STL ABSTRACTION Provider, Abstract 05/22/2024 9:45 AM CDT Office Visit [facility] Orthopedic Surgery at the [address] [place] [phone] See Al MD Tear of medial collateral ligament of right knee, initial encounter (Primary Dx) 04/24/2024 1:40 PM CDT Office Visit [facility] Orthopedic Surgery at the [address] [place] [address] See Al MD Tear of medial collateral ligament of right knee, initial encounter (Primary Dx) 04/24/2024 External Device Data STL ABSTRACTION Provider, Abstract 04/24/2024 External Device Data STL ABSTRACTION Provider, Abstract 04/24/2024 External Device Data STL ABSTRACTION Provider, Abstract 04/24/2024 External Device Data STL ABSTRACTION Provider, Abstract 04/23/2024 3:54 PM CDT - 04/23/2024 11:59 PM CDT Hospital Encounter [facility] [address] [place] [address] Hollie Vernon PA-C Discharge Disposition: Home or Self Care 04/23/2024 2:40 PM CDT Ancillary Procedure [facility] Orthopedic Surgery at the [address] [place] [address] Hollie Vernon PA-C Acute pain of right knee 04/23/2024 2:30 PM CDT Office Visit [facility] Orthopedic Surgery at the [address] [place] [address] Hollie Vernon PA-C Internal derangement of knee joint, right (Primary Dx); Patellar subluxation, right, initial encounter; Acute pain of right knee from Last 3 Months Social History Tobacco Use Types Packs/Day Years Used Date Smoking Tobacco: Never Assessed Tobacco Cessation:Counseling Given: Yes Sex and Gender Information Value Date Recorded Sex Assigned at Not on file Legal Sex Male 11:13 AM CDT Gender Identity Not on file Sexual Orientation Not on file Last Filed Vital Signs Vital Sign Reading Time Taken Comments Blood Pressure - - Pulse - - Temperature - - Respiratory Rate - - Oxygen Saturation - - Inhaled Oxygen Concentration - - Weight 74.8 kg (165 lb) 04/24/2024 1:39 PM CDT Height 170.2 cm (5' 7 ) 04/24/2024 1:39 PM CDT Body Mass Index 25.84 04/24/2024 1:39 PM CDT Plan of Treatment Upcoming Encounters Date Type Department Care Team (Late st Contact Info) Description 06/19/2024 10:00 AM CDT Office Visit [facility] Orthopedic Surgery at the [address] [place] [address] Stewart Leigh PA-C [address] [place] [address] Health Maintenance Due Date Last Done Comments Pre-Diabetes and Diabetes Screening 1973 DTAP/TDAP/TD VACCINES (1 - Tdap) 1992 HEPATITIS B VACCINES (1 of 3 - 19+ 3-dose series) 10/15 COLORECTAL SCREENING 2018 Colorectal Cancer Screening 2018 FIT-DNA Q 3 years 2018 FIT/FOBT Q 1 year 2018 Flex Sig/CT Colonography Q 5 years 2018 INFLUENZA VACCINE (#1) 2023 ZOSTER VACCINE (1 of 2) 10/27/2023 Procedures Procedure Name Priority Date/Time Associated Diagnosis Comments MRI KNEE WO CONTRAST RIGHT Stat 04/23/2024 4:44 PM CDT Internal derangement of knee joint, right Patellar subluxation, right, initial encounter XR KNEE 4+ VW RIGHT Routine 04/23/2024 2 :43 PM CDT Acute pain of right knee from Last 3 Months Results * MRI KNEE WO CONTRAST RIGHT (04/23/2024 4:44 PM CDT) Anatomical Region Laterality Modality Lower Extremity Magnetic Resonan ce 04/23/2024 4:45 PM CDT Impressions 04/23/2024 5:02 PM CDT IMPRESSION: 1. Complete tear of the MCL proximal to the joint line. Moderate surrounding soft tissue edema. 2. Small joint effusion. 3. Intact cruciate ligaments and menisci. DICTATION LOCATION: Location 4 Narrative 04/23/2024 5:02 PM CDT MRI KNEE WO CONTRAST RIGHT DATE: 04/23/2024 4:44 PM HISTORY: 48-year-old male with lateral knee injury. Medial sided pain and swelling. TECHNIQUE: Multiplanar, multisequence 1.5T MRI of the right knee without IV contrast. COMPARISON: X-ray 04/23/2024 FINDINGS: Skin marker placed over the medial knee CRUCIATE AND COLLATERAL LIGAMENTS: * ACL: Intact * PCL: Intact * MCL: Complete tear of the ligament just proximal to the joint line. * LATERAL STRUCTURES: The iliotibial band, fibular collateral ligament, and biceps femoris tendon are intact. POSTEROLATERAL CORNER: * Popliteus tendon: Intact. * Popliteofibular ligament: Not well seen. * Proximal tibiofibular joint: Within normal limits. EXTENSOR MECHANISM: * Quadriceps tendon: Within normal limits. * Patellar tendon: Intact. SYNOVIUM: * Joint fluid: Small joint effusion * Bursa: Within normal limits. POSTEROMEDIAL CORNER: * Semimembranosus tendon: Intact MEDIAL COMPARTMENT: * Joint space: Within normal limits * Cartilage: No focal defect. * Medial meniscus: Intact. LATERAL COMPARTMENT: * Joint space: Within normal limits * Cartilage: No focal defect. * Lateral meniscus: Intact PATELLOFEMORAL COMPARTMENT: * Joint space / Alignment: Slight lateral patellar tilting. * Patellar cartilage: No focal chondral defect * Femoral trochlear cartilage: No focal chondral defect * Hoffa's fat pad: Within normal limits. * Retinaculum: Sprain of the medial retinaculum. MARROW (other): Within normal limits. MUSCLES / SOFT TISSUES: Moderate subcutaneous soft tissue edema along the medial side of the knee with some ill-defined fluid. Procedure Note Jabari Singh MD - 04/23/2024 MRI KNEE WO CONTRAST RIGHT DATE: 04/23/2024 4:44 PM HISTORY: 48-year-old male with lateral knee injury. Medial sided pain and swelling. TECHNIQUE: Multiplanar, multisequence 1.5T MRI of the right knee without IV contrast. COMPARISON: X-ray 04/23/2024 FINDINGS: Skin marker placed over the medial knee CRUCIATE AND COLLATERAL LIGAMENTS: * ACL: Intact * PCL: Intact * MCL: Complete tear of the ligament just proximal to the joint line. * LATERAL STRUCTURES: The iliotibial band, fibular collateral ligament, and biceps femoris tendon are intact. POSTEROLATERAL CORNER: * Popliteus tendon: Intact. * Popliteofibular ligament: Not well seen. * Proximal tibiofibular joint: Within normal limits. EXTENSOR MECHANISM: * Quadriceps tendon: Within normal limits. * Patellar tendon: Intact. SYNOVIUM: * Joint fluid: Small joint effusion * Bursa: Within normal limits. POSTEROMEDIAL CORNER: * Semimembranosus tendon: Intact MEDIAL COMPARTMENT: * Joint space: Within normal limits * Cartilage: No focal defect. * Medial meniscus: Intact. LATERAL COMPARTMENT: * Joint space: Within normal limits * Cartilage: No focal defect. * Lateral meniscus: Intact PATELLOFEMORAL COMPARTMENT: * Joint space / Alignment: Slight lateral patellar tilting. * Patellar cartilage: No focal chondral defect * Femoral trochlear cartilage: No focal chondral defect * Hoffa's fat pad: Within normal limits. * Retinaculum: Sprain of the medial retinaculum. MARROW (other): Within normal limits. MUSCLES / SOFT TISSUES: Moderate subcutaneous soft tissue edema along the medial side of the knee with some ill-defined fluid. IMPRESSION: 1. Complete tear of the MCL proximal to the joint line. Moderate surrounding soft tissue edema. 2. Small joint effusion. 3. Intact cruciate ligaments and menisci. DICTATION LOCATION: Location 4 Hollie Vernon PA-C MR ORDERABLES Final R esult * XR KNEE 4+ VW RIGHT (04/23/2024 2:43 PM CDT) Anatomical Region Laterality Modality Lower Extremity Computed Radiogr aphy 04/23/2024 2:45 PM CDT Impressions 04/23/2024 3:09 PM CDT IMPRESSION: 1. Normal radiographs of the right knee. DICTATION LOCATION: Location - [facility] Narrative 04/23/2024 3:09 PM CDT EXAMINATION: XR KNEE 4+ VW RIGHT HISTORY: See Diagnosis. Acute pain of right knee FINDINGS: No prior study is available for comparison at the time of this dictation. Alignment is normal. No acute fractures identified. No joint space abnormality is seen. Procedure Note Costa Armstrong MD - 04/23/2024 EXAMINATION: XR KNEE 4+ VW RIGHT HISTORY: See Diagnosis. Acute pain of right knee FINDINGS: No prior study is available for comparison at the time of this dictation. Alignment is normal. No acute fractures identified. No joint space abnormality is seen. IMPRESSION: 1. Normal radiographs of the right knee. DICTATION LOCATION: Location - [facility] Hollie Vernon PA-C DIAGNOSTIC IMAGING ORDE RABLES Final Result from Last 3 Months Insurance [facility]
--- OUTSIDE RECORDS SUMMARY | 2024-06-16 11:01 | XMS_ITS | Data Portability ---
Author Organization [facility] [employer], Main Office Address [address] [place] [address] Assessment No assessment recorded. Plan of Treatment Reminders Order Date Submit Date Provider Last Modified By Organization Details Last Modified Time Details Appointments None recorded. Lab CMP, serum or plasma [address] Outpatient Lab, [address] [place], [address], 4 10:08:53 lipid panel, serum [address] Outpatient Lab, [address] [place], [address], 4 10:08:52 CMP, serum or plasma [address] Outpatient Lab, [address] [place], [address], 3 17:54:37 CBC w/ auto diff [address] Outpatient Lab, [address] [place], [address], 3 17:54:48 TSH + free T4, serum 2022 023 [facility] ([facility]3] Outpatient Lab, [address] [place], [address], 3 17:49:11 urinalysis complete, reflex culture [address] Outpatient Lab, [address] [place], [address], 3 17:54:57 lipid panel, serum [address] Outpatient Lab, [address] [place], [address], 3 17:54:20 PSA, serum or plasma [address] Outpatient Lab, [address] [place], [address], 3 17:55:06 HbA1c (hemoglobin A1c), blood [address] Lab, [address] [place], [address], 3 17:54:28 Referral None recorded. Procedures colonoscopy screening (PROC) 2022 023 [email or web address] 4 Andie Ramos MD, [address] [facility], [address], [place], [address], 4 10:16:49 Surgeries None recorded. Imaging CT, angiogram, head + neck, w/ contrast - approved [id number] 2022 023 [email or web address] [facility] (Imaging), [address] [place], [address], 4 10:09:00 MRI, lumbar spine, w/o contrast [address] (Imaging), [address] [place], [address], 3 16:53:18 Medication Orders None recorded. Patient [...] WILL NOT BE REPOR EDEN. Not Available [facility] (Lab) [address] [place], [address], 05/18/2021 12:08:07 05/19/19 22 05/18/2021 LIPID PANEL cholesterol 175 mg/dL 140-19 9 NIH BEULAH NSUS RECOM MENDA TION FOR DENIS STERO L: ADULT CHILD LOW RISK: <200 <170 BORDE RLINE : <200- 239 ----- HIGH RISK: >240 >200 Not Available [facility] (Lab) [address] [place], [address], 05/18/2021 12:08:07 05/19/19 22 05/18/2021 LIPID PANEL triglyceride s 121 mg/dL 0-150 NIH BEULAH NSUS REPOR T RECOM MENDA TION FOR TRIGL YCERI NETO: ADULT CHILD LOW RISK: <150 ----- BODER LINE: 150-1 99 ----- HIGH RISK: >200 ----- Not Available [facility] (Lab) [address] [place], [address], 05/18/2021 12:08:07 05/19/19 22 05/18/2021 LIPID PANEL HDL cholesterol 39 mg/dL 40- low Not Available [facility] (Lab) [address] [place], [address], 05/18/2021 12:08:07 05/19/19 22 05/18/2021 HEMOG LOBIN A1C HA1C 5.3 % 4.0-6. 0 Diabe alejandra Scree janet Crite justin: <5.7% Consi stent with absen ce of diabe alejandra 5.7-6 .4% Consi stent with incre ased risk for diabe alejandra (pred iabet es) >OR=6 .5% Consi stent with diabe alejandra REFER ENCE: Diabe alejandra Care 2015, 39(Holden ppl.1 ):s13 -s22 Not Available [facility] (Lab) [address] [place], [address], 05/18/2021 12:48:55 05/19/19 22 05/18/2021 COMPR EHENS CHAD METAB OLIC PANEL carbon dioxide 28 mmol/ L 22-30 Not Available [facility] (Lab) [address] [place], [address], 05/18/2021 12:08:05 05/19/19 22 05/18/2021 COMPR EHENS CHAD METAB OLIC PANEL sodium 139 mmol/ L 137-14 5 Not Available [facility] (Lab) [address] [place], [address], 05/18/2021 12:08:05 05/19/19 22 05/18/2021 COMPR EHENS CHAD METAB OLIC PANEL potassium 4.7 mmol/ L 3.5-5. 1 Not Available [facility] (Lab) [address] [place], [address], 05/18/2021 12:08:05 05/19/19 22 05/18/2021 COMPR EHENS CHAD METAB OLIC PANEL chloride 103 mmol/ L 98-107 Not Available [facility] (Lab) [address] [place], [address], 05/18/2021 12:08:05 05/19/19 22 05/18/2021 COMPR EHENS CHAD METAB OLIC PANEL agap 12.7 mmol/ L 14-22 low Not Available [facility] (Lab) [address] [place], [address], 05/18/2021 12:08:05 05/19/19 22 05/18/2021 COMPR EHENS CHAD METAB OLIC PANEL glucose 108 mg/dL 70-99 high Not Available [facility] (Lab) [address] [place], [address], 05/18/2021 12:08:05 05/19/19 22 05/18/2021 COMPR EHENS CHAD METAB OLIC PANEL BUN 10 mg/dL 8-19 Not Available [facility] (Lab) [address] [place], [address], 05/18/2021 12:08:05 05/19/19 22 05/18/2021 COMPR EHENS CHAD METAB OLIC PANEL creatinine 0.88 mg/dL 0.66-1 .25 Not Available [facility] (Lab) [address] [place], [address], 05/18/2021 12:08:05 05/19/19 22 05/18/2021 COMPR EHENS CHAD METAB OLIC PANEL GFR >60 Refer ence Range : [place] ge GFR Healt hy Adult : >60 [...] or ethni c subgr oups, such as Hisks nics. Outsi de the valid ated elisabeth [...] calcu lataissatou is avail able on the [facility] websi te: https :[email or web address] lora.[email or web address] [email or web address] marita/pretty kingess ional s/kdo qi/gf r_cal culat or Not Available [facility] (Lab) [address] [place], [address], 05/18/2021 12:08:05 05/19/19 22 05/18/2021 COMPR EHENS CHAD METAB OLIC PANEL alkaline phosphatase 53 U/L 38-126 Not Available [facility] (Lab) [address] [place], [address], 05/18/2021 12:08:05 05/19/19 22 05/18/2021 COMPR EHENS CHAD METAB OLIC PANEL calcium 9.6 mg/dL 8.4-10 .2 Not Available [facility] (Lab) [address] [place], [address], 05/18/2021 12:08:05 05/19/19 22 05/18/2021 COMPR EHENS CHAD METAB OLIC PANEL alanine aminotransfe rase 37 U/L 0-50 Not Available [facility] (Lab) [address] [place], [address], 05/18/2021 12:08:05 05/19/19 22 05/18/2021 COMPR EHENS CHAD METAB OLIC PANEL aspartate aminotransfe rase 36 U/L 15-46 Not Available [facility] (Lab) [address] [place], [address], 05/18/2021 12:08:05 05/19/19 22 05/18/2021 COMPR EHENS CHAD METAB OLIC PANEL bilirubin, total 0.60 mg/dL 0.20-1 .30 Not Available [facility] (Lab) [address] [place], [address], 05/18/2021 12:08:05 05/19/19 22 05/18/2021 COMPR EHENS CHAD METAB OLIC PANEL total protein 7.7 g/dL 6.3-8. 2 Not Available [facility] (Lab) [address] [place], [address], 05/18/2021 12:08:05 05/19/19 22 05/18/2021 COMPR EHENS CHAD METAB OLIC PANEL albumin 4.8 g/dL 3.4-5. 0 Not Available [facility] (Lab) [address] [place], [address], 05/18/2021 12:08:05 05/19/19 22 05/18/2021 COMPR EHENS CHAD METAB OLIC PANEL globulin 2.9 g/dL 2.6-4. 2 Not Available [facility] (Lab) [address] [place], [address], 05/18/2021 12:08:05 05/19/19 22 05/18/2021 COMPR EHENS CHAD METAB OLIC PANEL A/G ratio 1.7 ratio 1.0-2. 0 Not Available [facility] (Lab) [address] [place], [address], 05/18/2021 12:08:05 05/07/19 22 05/06/2021 , pily newman No observ ation record ed. [id number], [place], [address], 04/14/2022 06:08:16 Result Notes None recorded. Problems Name Problem SNOMED Code Status Onset Date Resolution Date Notes Provider Name and Address Organization Details Recorded Time Benign essential hypertens ion 6306580 Active Not Available [facility] 3 06:01:24 Abdominal pain 73628750 Completed 202112/01/2021 Not Available [facility] 3 06:01:24 Sore throat 919350319 Active 2022 Not Available [facility] 3 06:01:24 Low back pain 444666041 Active 2021 Not Available [facility] 3 06:01:25 Hypertrig lyceridem ia 911116711 Active 2017 Not Available [facility] 3 06:01:25 History of atrial fibrillat ion 193439834 Active 2017 Not Available [facility] 3 06:01:25 Atrial fibrillat ion 22432108 Active Not Available [facility] 3 06:01:25 Hyperlipi demia 96257311 Active Not Available [facility] 3 06:01:25 Tinnitus 29255057 Active 2021 Not Available [facility] 3 06:01:25 Sleep apnea 61970553 Active Not Available [facility] 3 06:01:25 Hyperglyc emia 03024985 Active 2017 Not Available [facility] 3 06:01:25 Degenerat ion of lumbar intervert ebral disc 99067002 Active 2022 GONZALO Gamboa [address], [address], [place], [address] , [facility] 3 10:19:24 Lumbar radiculop athy 101785727 Active 2022 GONZALO Gamboa [address], [address], [place], [address] , [facility] 3 10:19:29 Steatotic liver disease 207211521 Active 2022 GONZALO Gamboa [address], [address], [place], [address] , [facility] 3 10:20:40 Subjectiv e pulsatile tinnitus of right ear 49181480865 89984 Active 2022 GONZALO Gamboa [address], [address], [place], [address] , [facility] 3 09:56:29 Problem Notes None recorded. Procedures Surgical History Date Name Laterality Status Provider Name and Address Organization Details Recorded Time Orthopedic Surgery completed Not Available [facility] 04/14/2022 05:56:43 Imaging Results Imaging Date Name Status LastModified by Organiz ation Details LastModified Time 05/06/2021 US, gallbladder completed [email or web address] [id number] [facility] [address], [place], [address], 04/14/2022 06:08:16 Procedure Notes None recorded. Medical [...] Date Recorded Body mass index (BMI) Body height Oxygen saturation Oxygen saturation in Arterial blood by Pulse oximetry Heart rate Body temperature Body weight Systolic blood pressure Diastolic blood pressure Provider Name and Address Organization Details Last Updated DateTime 1 27.3 kg/m2 168.91 cm 98 % 98 % 66 /min 97.5 [degF] 52400.8 9 g 136 mm[Hg] 80 mm[Hg] Not Available [facility] 3 05:57:39 Date Recorded Body mass index (BMI) Body height Oxygen saturation Oxygen saturation in Arterial blood by Pulse oximetry Heart rate Body weight Systolic blood pressure Diastolic blood pressure Provider Name and Address Organization Details Last Updated DateTime 2 26.6 kg/m2 168.91 cm 98 % 98 % 64 /min 45108.9 3 g 120 mm[Hg] 80 mm[Hg] Not Available [facility] 3 05:57:39 Date Recorded Body mass index (BMI) Body height Oxygen saturation Oxygen saturation in Arterial blood by Pulse oximetry Heart rate Body weight Systolic blood pressure Diastolic blood pressure Provider Name and Address Organization Details Last Updated DateTime 2 26.1 kg/m2 168.91 cm 99 % 99 % 69 /min 03543.1 5 g 138 mm[Hg] 70 mm[Hg] Not Available [facility] 3 05:57:39 Date Recorded Body height Body temperature Body weight Heart rate Oxygen saturation Oxygen saturation in Arterial blood by Pulse oximetry Systolic blood pressure Diastolic blood pressure Provider Name and Address Organization Details Last Updated DateTime 3 168.91 cm 98.1 [degF] 54943.7 4 g 84 /min 99 % 99 % 126 mm[Hg] 82 mm[Hg] Bernadette Llamas RN [employer] 3 09:49:16 Date Recorded Body mass index (BMI) Provider Name and Address Organization Details Last Updated DateTime 05/12/2022 26.2 kg/m2 GONZALO Gamboa [address] [place], [address], [employer] 05/12/2022 10:01:48 Date Recorded Body height Body weight Body temperature Heart rate Oxygen saturation Oxygen saturation in Arterial blood by Pulse oximetry Systolic blood pressure Diastolic blood pressure Provider Name and Address Organization Details Last Updated DateTime 3 168.91 cm 53951.1 5 g 98.2 [degF] 67 /min 99 % 99 % 128 mm[Hg] 80 mm[Hg] Bernadette Llamas RN [employer] 3 09:30:27 Date Recorded Body mass index (BMI) Systolic blood pressure Diastolic blood pressure Provider Name and Address Organization Details Last Updated DateTime 11/10/2022 26.1 kg/m2 128 mm[Hg] 80 mm[Hg] GONZALO Gamboa [address], [place], [address], [employer] 11/10/2022 09:58:34 Social History Question Answer Notes LastModified by Organizat ion Details LastModified Time Tobacco Smoking Status Never Smoker Not Available [facility] 04/14/2022 05:54:51 What Is Your Level Of Alcohol Consumption? Moderate [email or web address] Information not available 05/12/2022 What Is Your Level Of Caffeine Consumption? Moderate Information not available 05/12/2022 How Much Tobacco Do You Chew? None [id number] Information not available 04/14/2022 In The 14 Days Before Symptom Onset, Have You Had Close Contact With A Laboratory-confirm ed COVID-19 While That Case Was Ill? No [email or web address] Information n ot available 05/11/2022 In The 14 Days Before Symptom Onset, Have You Had Close Contact With A Person Who Is Under Investigation For COVID-19 While That Person Was Ill? No [email or web address] Information not available 05/11/2022 Are You Currently Employed? Yes [email or web address] Information not available 05/11/2022 What Type Of Diet Are You Following? REGULAR [id number] Information not available 04/14/2022 Which Illicit Or Recreational Drugs Have You Used? None [id number] Information not available 04/14/2022 What Is Your Occupation? [employer] [id number] Information not available 04/14/2022 Have There Been Any Changes To Your Family Or Social Situation? No [email or web address] Information no t available 05/11/2022 Do You Use Insect Repellent Routinely? No [email or web address] Information not available 05/11/2022 What Was The Date Of Your Most Recent Tobacco Screening? 07/23/2020 [id number] Information not available 04/14/2022 What Is Your Relationship Status? [email or web address] Information not available 05/11/2022 Do You Use Your Seat Belt Or Car Seat Routinely? Yes [email or web address] Information not available 05/12/2022 Are You Sexually Active? Yes [email or web address] Information not available 05/12/2022 Do You Have Smoke And Carbon Monoxide Detectors In Your Home? Yes [email or web address] Information not available 05/11/2022 Do You Feel Stressed (tense, Restless, Nervous, Or Anxious, Or Unable To Sleep At Night)? [id number] [email or web address] Information not available 05/12/2022 Do You Use Any Illicit Or Recreational Drugs? No [email or web address] Information not available 05/11/2022 Do You Use Sunscreen Routinely? No [id number] Information not available 04/14/2022 Have You Recently Traveled Abroad? No [email or web address] Information not available 05/11/2022 Do You Have Any Dietary Restrictions? No [email or web address] Information not available 05/11/2022 Do You Or Have You Ever Used Any Other Forms Of Tobacco Or Nicotine? No [email or web address] Information not available 05/11/2022 Sex: Male Functional Status Question Answer Note LastModified by Organizat ion Details LastModified Time What is your exercise level? Moderate [id number] Information not available 04/14/2022 Mental Status None recorded. Family History Relationship Description Onset Age of this Age Resolved Age Notes LastModified by Organization Details LastModified Time Maternal Grandfather Diabetes mellitus [id number] Not available 04/14/2022 05:56:44 Maternal Grandmother Malignant neoplastic disease [id number] Not available 04/14/2022 05:56:44 Maternal Uncle Malignant neoplastic disease [id number] [id number] Not available 04/14/2022 05:56:44 Medical History No medical history recorded. Past Encounters Encounter ID Performer Location Encounter Start Date Encounter Closed Date Diagnosis/Indication Diagnosis SNOMED-CT Code Diagnosis ICD10 Code Diagnosis Note [id number] Zander Cerna MD [facility] [address] [facility] [place] [address] 06/04/2020 00:00:00 06/04/2020 16:10:34 [id number] Zander Cerna MD [facility] Internal Med [facility] [address] [facility], [facility] [address] [place] [address] 07/23/2020 00:00:00 07/23/2020 12:51:29 [id number] Zander Cerna MD [facility] Internal Med [facility] [address] [facility] [place] [address] 07/28/2020 00:00:00 07/28/2020 13:18:42 [id number] MD DANAE [facility] Internal Med [facility] [address] [facility] [place] [address] 12/02/2020 00:00:00 12/02/2020 11:00:21 [id number] Zander Cerna MD [facility] Internal Med [facility] [address] [facility] [place] [address] 05/11/2021 00:00:00 05/11/2021 10:37:43 [id number] Zander Cerna MD [facility] Internal Med [place] [address] [place] [address] 12/01/2021 00:00:00 12/01/2021 13:36:25 [id number] GONZALO Gamboa [facility] Internal Med [place] [address] [place] [address] 05/12/2022 09:36:13 05/12/2022 10:28:34 Adult health examination 512353538 Z00.01 well exam completed Benign ess ential hypertension 5551824 I10 stable History of atrial fibrillation 607643836 Z86.79 stable. Hyperlipidemia 40043567 E78.5 fasting lipids due Degenerati on of lumbar intervertebral disc 87922457 M51.36 hx noted. sees pain management . Lumbar radiculopathy 128 731430 M54.16 symptomati c. hx of lumbar surgery. needs Updated MRI so Neurosurge ry will see him in consult. History of operative procedure on lumbar spinal structure 835981897 Z98.890 hx noted 2010 Screening for malignant neoplasm of prostate 668939762 Z12.5 PSA due Screening for malignant neoplasm of colon 666116414 Z12.11 baseline colonoscop y due. Diabetes m ellitus screening 579752536 Z13.1 screening for diabetes due Steatotic liver disease 445527058 K76.0 hx noted Long-term drug therapy 041049773 Z79.899 routine labs due. [id number] GONZALO Gamboa [facility] Internal Med [place] [address] [place] [address] 11/10/2022 09:21:57 11/10/2022 10:13:38 Benign essential hypertension 3204306 I10 stable on metoprolol ER 50mg daily. Hyperlipidemia 71091028 E78.5 diet and exercise managed. repeat fasting lipids in Nov. Long-term drug therapy 818499765 Z79.899 Subjective pulsatile tinnitus of right ear [id number] 854278 H93.A1 pt reports onset this year of [...] ID Guarantor Name 05/12/2022 1 [employer] [id number] 3 Naif Yu [id number] 09 Naif Yu 11/10/2022 1 [place] [id number] 3 Naif Yu [id number] 09 Naif Yu Notes Date Note Type Note Provider Name and Address Organization Details Recorded Time 3 text/html HypertensionReported bypatient.Onset/Timing:be tter Alleviating Factors:medication Associated Symptoms:no shortness of breath; no fatigue; no palpitations; no decline in exercise capacity; no snoring pt here to establish carec/o back painreports last summer was dx with fatty liver GONZALO Gamboa [address], [place], [address], [employer] 05/12/2022 21:08:01 3 text/html HypertensionReported bypatient.Onset/Timing:be tter Alleviating Factors:medication Associated Symptoms:no shortness of breath; no fatigue; no palpitations; no decline in exercise capacity; no snoring GONZALO Gamboa [address], [place], [address], [employer] 11/10/2022 19:17:14
--- OUTSIDE RECORDS SUMMARY | 2024-06-16 11:01 | XMS_ITS | CONTINUITY OF CARE DOCUMENT ---
Author Name anna castillo Address Unknown Organization [facility] Address [address] [place] [address] Phone [phone] Care Team Providers Care Ticker Wirer Name Role Phone Aditya Gayle MD Unavailable [phone] Zander Cerna MD Unavailable [phone] Zander Cerna MD Unavailable [phone] PROBLEMS Condition Status Date Provider Notes ETOH [...] In-person encounter Office Visit Aditya Gayle MD [place] [facility] - In-person encounter Office Visit Aditya Gayle MD [facility] [place] OSAHypercholesterolemiaSOB - In-person encounter Office Visit Buzz Dumont MD [facility] - In-person encounter Office Visit Krystian Vincent MD [facility] - In-person encounter Office Visit Buzz Dumont MD [facility] - In-person encounter Office Visit Mian Baker MD [facility] [place] PALPITATIONS-03/27 HOLTER SR-SB HR 44-120 - In-person encounter Office Visit Buzz Dumont MD [place] [facility] ATRIAL FIB LONE ON BETA RJ [...] Location 1 triglyceride, serum, fasting 337 mg/dL [facility] 1 HDL cholesterol, serum 53 mg/dL [facility] 1 LDL cholesterol, serum 123 mg/dL [facility] 1 cholesterol, serum 243 mg/dL [facility] 3 red blood cell distribution width, size density 45.6 fL [facility] - 3 immature granulocytes, percentage of total cells, blood 0.3 % [facility] - 3 nucleated red blood cells as percent of blood leukocytes 0.0 % [facility] - 3 red blood cell (erythrocyte) count, per high power field 0.0 10*3/UL [facility] - 3 eosinophils as percent of blood leukocytes 1.1 % [facility] - 3 neutrophils as percent of blood leukocytes 61.0 % [facility] - 3 Absolute Neutrophils 3.8 CELLS/UL [facility] 1.5 - 7.8 3 basophils as percent of blood leukocytes 0.8 % [facility] - 3 Absolute Basophils 0.1 CELLS/UL [facility] 0.0 - 0.2 3 monocytes as percent of blood leukocytes 7.7 % [facility] - 3 Absolute Monocytes 0.5 CELLS/UL [facility] 0.2 - 1.0 3 lymphocytes as percent of blood leukocytes 29.1 % [facility] - 3 Absolute Lymphocytes 1.8 CELLS/UL [facility] 0.9 - 3.9 3 mean platelet volume 10.8 (?) [facility] - 3 platelet count 193.0 THOUSAND/ UL [...] per day none [facility] smoking status Non-smoker [facility] MENTAL STATUS Date Observation Value Provider assessment [...] Payer name Policy type / Coverage type [employer] party ID [facility] [id number] [employer] (2) Medicaid [id number] TREATMENT PLAN Date Name Performer Cardiology: 6: Cholesterol: 243mg/dL LDL Cholesterol:123mg/dL HDL Cholesterol: 53mg/dL Triglyceride: 337mg/dL Aditya Baker Cardiology:Will atte mpt to get dental device. Otherwise, will schedule titration sleep study. Aditya Baker Cardiology:S/P succe ssful cardioverison. Will keep on Xarelto and Amiodarone for 3 months. His CHADs score is 0. Aditya [facility] Cardiology:The pt fina s admitted recently to [place] with new onset atrial fibrillation. Aditya [facility] Cardiology:The follo wing medications were removed from the medication list: Lovastatin 20 Mg Tabs (Lovastatin) ..... 1 tab by mouth daily Aditya [facility] Cardiology:BP today: 140/98 P rior BP: 127/64 (08/11/2010) The following medications were removed from the medication list: Aspirin 81 Mg Tabs (Aspirin) ..... One tab. daily Metoprolol Succinate 50 Mg Tb24 (Metoprolol succinate) ..... One tab. daily Aditya [facility] Cardiology [facility]The pt fina s admitted recently to [place] with new onset atrial fibrillation. [facility] Cardiology:The pt fina s admitted recently to [place] with new onset atrial fibrillation. An attempt [...] 127/64 Prior BP: 130/89 (05/28/2010) S [facility] Echo Findings: Test considered to be [...] this problem includes: Toprol Xl 50 Mg Lo62o-bkc (Metoprolol succinate) ..... 1 tab daily Aspirin 81 Mg Tabs (Aspirin) ..... One tab. daily BP today: 147/83 P rior BP: 129/68 (03/19/2010) Buzz Dumont MD follow up: H is updated medication list for this problem includes: Toprol Xl 50 Mg Pv83x-dos (Metoprolol succinate) ..... 1 tab daily Aspirin [...] this problem includes: Toprol Xl 50 Mg Dz49s-xzo (Metoprolol succinate) ..... 1 tab daily BP [...] this problem includes: Toprol Xl 50 Mg Bx67a-npi (Metoprolol succinate) ..... 1 tab daily BP today: 129/68 Prior BP: 151/78 (02/03/2010) S tress Echo Findings: Test considered to be negative by ECG. Baseline echo was normal and post exercise echo showed expected changes. (01/26/2010) Orders: E KG ([id number]) H olter Monitor 24 Hr ([id number]) B ASIC METABOLIC PANEL W/EGFR (84487) M AGNESIUM (622) Mian Baker MD palpitations : T he following medications were removed from the medication list: Aspirin 325 Mg Tabs (Aspirin) ..... One tab daily His updated medication list for this problem includes: Toprol Xl 50 Mg Hp90p-ekq (Metoprolol succinate) ..... 1 tab daily BP today: 129/68 P rior BP: 151/78 (02/03/2010) Mian Baker MD palpitations Mian Baker MD Hosp follow up: B P today: 151/78 Prior BP: / () His updated medication list for this problem includes: Toprol Xl 50 Mg Tc61m-eqq (Metoprolol succinate) ..... 1 tab daily BP today: 151/78 Prior BP: / () S tress Echo Findings: Test considered to be negative by ECG. Baseline echo was normal and post exercise echo showed expected changes. (01/26/2010) Buzz Dumont MD Hosp follow up: H is updated medication list for this problem includes: Toprol Xl 50 Mg Tt27g-vlx (Metoprolol succinate) ..... 1 tab daily BP today: 151/78 Prior BP: / () S tress Echo Findings: Test considered to be negative by ECG. Baseline echo was normal and post exercise echo showed expected changes. (01/26/2010) Buzz Dumont MD Hosp follow up: H is updated medication list for this problem includes: Toprol Xl 50 Mg Jm20r-mgq (Metoprolol succinate) ..... 1 tab daily BP today: 151/78 Buzz Dumnot MD Hosp follow up: B P today: 151/78 Prior BP: / () Buzz Dumont MD Date Name MAGNESIUM CBC (INCLUDES DIFF/P LT) Sleep Study Home Cardioversion - GC Holter Monitor 24 Hr Holter Monitor 24 Hr HISTORY OF PROCEDURES Procedure Date Procedure Name Provider Procedure Notes S tatus Schedule Followup Aditya Gayle MD 3 months com pleted SNOMED-CT: 367594943 [id number] Current Medications Documented Aditya Gayle MD completed EKG Aditya Gayle MD completed SNOMED-CT: [id number] 144743 Current Medications Documented Aditya Gayle MD completed EKG Mian Baker MD completed
--- NOTE | 2024-06-28 22:00 | P.SLEEP_ITS ---
Sleep Study Date of Study: 06/15/24 Ordering Provider: Taylor Mccurdy, RISK ENGINEER Interpreting Physician: Omaira Delgadillo MD Sleep Study Type: CPAP Titration Height: 1.7 m Weight: 77.111 kg Body Mass Index: 26.6 Neck Circumference (inches): 17 [place]: 10 Reason for Sleep Study Constant daytime fatigue, atrial fibrillation * 04/18/2024 basic polysomnogram showing moderate obstructive sleep apnea, the apnea-hypopnea index using a 3% criteria is 16.5 with desaturation to 85%, mild snoring, 4 minutes below 88%, 0.9% the study. His events were much worse in the supine position, the supine apnea-hypopnea index is 63.5. He returns for a CPAP titration. Sleep History The history is taken from his April 18, 2024 sleep questionnaire. Naif Yu is a 48-year-old man with constant fatigue which has been going on for several months. He has a history of obstructive sleep apnea but has had 100 lb weight loss and quit using CPAP. He has had atrial fibrillation in the setting of alcohol excess and obesity with a cardioversion in the past. His cardiology note indicates that when he became sober and lost weight he went off metoprolol and stopped using CPAP. On March 20, 2024 he presented to the ER with rapid palpitations intermittently over 2 weeks with elevated heart rates on his smart watch. In the ER, he was in rapid atrial fibrillation with a rate in the 150s. He improved on a diltiazem drip. Echocardiogram showed normal LV size and function EF 60-65%. PASP was 50 mmHg. He never wakes at night with heartburn, belching or coughing.??He occasion snores, however never snores loudly enough that others complain. He frequent has trouble sleeping when he has a cold. He rarely wakes up gasping for breath during the night. He rarely has breathing problems at night observed by others. He never sweats excessively at night. He occasional notices his heart pounding or beating irregularly during the night. He occasional falls asleep during the day. He never falls asleep involuntarily, never falls asleep while driving. He never experiences loss of muscle tone with strong emotion. 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 He never feels paralyzed on waking or falling asleep. He rarely experiences vivid dreams upon waking or falling asleep. He never feels afraid of going to sleep. He rarely has nightmares. He occasionally recalls his dreams. He constantly has thoughts racing through his mind. He rarely feels sad or depressed. He frequent feels anxiety. He rarely notices parts of his body jerk. He never kicks during the night. He rarely feels crawling or aching feelings in his legs. He never feels leg pain at night. He never has morning jaw pain, rarely grinds his teeth at night. He constantly feels bothered by pain during the day, occasionally awakened by pain during the night. He frequently wakes up feeling stiff in the morning, and he frequently wakes feeling sore or achy. He frequently awakens with pain in his neck, spine, or joints. Normal bedtime is between 10:00 p.m. and 12 midnight, falling asleep within 15 minute, waking several times during the night and the awakenings are not for any clear reason. Sometimes he goes to the bathroom. Wake time is between 5:00 a.m. and 8:00 a.m.. He typically gets 8 hours of sleep per night. He takes naps in the day, and sometimes he feels refreshed after a 10-15 minute nap. He is usually drowsy on waking. He feels better in the afternoon compared to other times of day. He occasionally awakens with morning headaches. Habits:??Tobacco:never smoker Caffeine:yes, amount not known Alcohol: former Recreational substances: marijuana PMFSH Past Medical History Medical History Obstructive sleep apnea Paroxysmal atrial fibrillation Surgical History Surgical History History of cardioversion History of lumbar surgery Family History Family History Grandparent A-fib Diabetes mellitus Mother Chronic obstructive pulmonary disease Diabetes mellitus Hypertension Grandparent Chronic obstructive pulmonary disease Cervical cancer Grandparent Chronic obstructive pulmonary disease Other Lung cancer Social History Social History Social History: Surrogate medical decision maker: Franny Carvajaldenis shweta ([phone]). Code status: Full code. Smoking status: Never smoker Second hand tobacco smoke exposure: Yes Alcohol intake: former Substance use: current Substance use type: marijuana Do You Feel Safe in your Home?: Yes Lack of Transportation: No Lack of Food: Never True Current Housing: I Have Housing Concerned About Future Housing: No Difficulty Paying Gas/Electric Bills: No Difficulty Paying for Meds: No Currently Unemployed: No Education: High School Diploma/GED Difficulty w/ Childcare or Family Care: No Spiritual care concerns: No Medications Home Medications ?Medication ?Instructions ?Recorded ?Confirmed ?Type testosterone cypionate 200 mg/mL 80 mg subcut .twice weekly 03/20/24 06/25/24 History intramuscular oil aspirin 81 mg chewable tablet 81 mg PO DAILY #30 tabs 03/21/24 06/25/24 Rx (Aspirin Childrens) metoprolol succinate 25 mg 12.5 mg (1/2 x 25 mg) PO DAILY 30 03/21/24 06/25/24 Rx tablet,extended release 24 hr days #15 tabs fluticasone propionate 50 1 spray intranasal BID #16 grams 06/25/24 06/25/24 Rx mcg/actuation nasal spray,suspension (Flonase Allergy Relief) Sleep Procedure A full night polysomnogram using the [employer] SleepxPeerient multi-channel system recorded the standard physiologic parameters including EEG, EOG, submentalis EMG, anterior tibialis EMG, EKG, body position, nasal and oral airflow using PAP device flow signal. Respiratory parameters of chest and abdominal movements were recorded with Respiratory Inductance Plethysmography belts. Oxygen saturation was recorded by pulse oximetry. Video monitoring was also performed. Sleep stages, periodic limb movements, and EEG arousals were scored in 30 second epochs according to the criteria of the AASM Scoring Manual. The Apnea-Hypopnea Index was calculated using CMS guidelines for definition of hypopnea with 4% O2 desaturations while scoring respiratory events. He did not take a sleep aid at the beginning of the study. He started the study using a medium Hurtado and [employer]kel Solo nasal mask, specifically wanted to try a nasal mask. About ten minutes after the study started, he called out and wanted to use a medium ResMed AirTouch F20 fullface mask which is what he used for the rest of the night. He was titrated from CPAP pressure of 5 up to a pressure of 13 cm. At CPAP 13 cm, the patient spent 65 minutes in bed, 7 minutes awake, 17.5 minutes in non-REM and 40.5 minutes in REM. The sleep efficiency was 89.2%. The residual apnea- hypopnea index was 1.0 and the minimum saturation was 92%. He had REM in the left lateral position and non-REM sleep in the supine position. This is the optimal pressure. Sleep Architecture The total recording time was 457.3 minutes. The total sleep time was 285.5 minutes. Sleep latency was 43.5 minutes. REM latency was 93.0 minutes. Sleep efficiency was 62.4%. The patient had 30 awakenings for an awakening index of 6.3. Wake after Sleep Onset time was 128.5 minutes. The patient spent 43.5 minutes, 15.2% of total sleep time in Stage N1. The patient spent 179.5 minutes, 62.9% in Stage N2. The patient spent 4.0 minutes, 1.4% in Stage N3. The patient spent 58.5 minutes, 20.5% in Stage REM. Respiratory Analysis The patient had 10 hypopneas, 14 obstructive apneas, 1 mixed apnea, and 3 central apneas for an overall Apnea Hypopnea Index of 5.9 events per hour. The REM Apnea Hypopnea Index was 1.0. The NREM Apnea Hypopnea Index was 7.1. The patient had a Central Apnea Hypopnea Index of 0.6. There were no Respiratory Effort Related Arousals. The Respiratory Disturbance Index is 7.8 events per hour. There was no evidence of Sergo-Ashraf Respirations. Arousals There were 152 total arousals for an arousal index of 31.9. There were 70 spontaneous arousals for an index of 14.7. There were 26 arousals due to respiratory events for an index of 5.5. There were 32 arousals due to periodic limb movements for an index of 6.7. There were 20 arousals due to isolated limb movements for an index of 4.2. Periodic Limb Movements The patient had 54 isolated limb movements with an index of 11.3. The patient had 83 periodic limb movements with index of 17.4. Patient had a total of 137 limb movements with a total limb movement index of 28.8. Oximetry Data The patient had an average oxygen saturation of 94.7% in sleep with a minimum oxygen saturation of 89% and a maximum oxygen saturation of 98%. The patient had 18 oxygen desaturations that were 4% or greater resulting in an Oxygen Desaturation Index of 3.8. The patient spent no sleep time with an oxygen saturation below 88%. Snoring Profile Snoring was mild, eliminated during the titration. Cardiac Profile The EKG showed normal sinus rhythm. The patient had an average pulse rate of 50.4 bpm with a minimum pulse rate of 41 bpm and a maximum pulse rate of 66 bpm. No arrhythmias noted. EEG Profile Unremarkable, no evidence of seizures. Assessment and Plan Assessment and Plan (1) Obstructive sleep apnea: Code(s): G47.33 - Obstructive sleep apnea (adult) (pediatric) Status: Acute Assessment and Plan: This full night CPAP titration on 06/15/2024 shows an optimal pressure of CPAP 13 cm using a medium ResMed AirTouch F20 fullface mask and heated humidity. At CPAP 13 cm, the patient spent 65 minutes in bed, 7 minutes awake, 17.5 minutes in non-REM and 40.5 minutes in REM. The sleep efficiency was 89.2%. The residual apnea-hypopnea index was 1.0 and the minimum saturation was 92%. He had REM in the left lateral position and non-REM sleep in the supine position. This is the optimal pressure. The patient should be prescribed this ResMed equipment as well as tubing, filters and reservoir. This should be used with all episodes of sleep. Compliance should be reviewed within 31-90 days of starting therapy for usage greater than 4 hours per night greater than 70% of the nights. The patient should be asked about symptoms such as excessive daytime sleepiness, quality of sleep, decreased nocturia, increased mental functioning such as memory, mood, and concentration. Data The data obtained during this sleep study is adequate for interpretation. Certification This sleep study has been reviewed by a board certified sleep medicine ph ysician.
[2024-06-28 22:16] VITALS: BMI 26.6
== END 2024-06-16 07:35 | disposition home or self-care (01) ==
LOC: ANHCSM 08:19
PROVIDERS: PCP Physician Assistant; Visit Provider Nurse Practitioner Adult Health
DX: G47.33 Obstructive sleep apnea (adult) (pediatric) (principal)
CPT/HCPCS: 95811

== ENCOUNTER 2024-07-02 11:30 | Emergency (ER) | payer BC, SELFPAY ==
[2024-07-02] VITALS (7 sets, daily range): BP systolic 120–136; BP diastolic 88–94; PULSE 74–87; RESP 14–18; TEMP 36.4; O2SAT 95–100
--- NOTE | ~2024-07-02 | XR_ITS ---
CHEST RADIOGRAPH, PA AND LATERAL CLINICAL HISTORY: CP, elevated heart rate . COMPARISON: 03/30/2024 TECHNIQUE: PA and lateral views of the chest. FINDINGS The cardiomediastinal silhouette is unremarkable. The lungs are clear. Visualized osseous structures and soft tissues are unremarkable. IMPRESSION: No focal infiltrate or effusion. Reviewed, dictated and finalized at location A.
--- NOTE | 2024-07-02 11:48 | ECG_ITS ---
Test Date: 2024-07-02 11:48:17 Measurements Intervals [place] Rate: 107 P: 0 NV: 0 QRS: 62 QRSD: 117 T: 15 QT: 275 QTc: 367 Interpretive Statements ATRIAL FLUTTER/TACHYCARDIA WITH RAPID VENTRICULAR RESPONSE NONSPECIFIC ST ELEVATION [0.05+ mV ST ELEVATION] ABNORMAL RHYTHM ECG Compared to ECG 03/30/2024 11:03:59 ST (T wave) deviation now present Atrial fibrillation no longer present Electronically Signed On 07-02-2024 12:28:45 CDT by Shraan Le M.D.
--- OUTSIDE RECORDS SUMMARY | 2024-07-02 12:04 | XMS_ITS | Data Portability ---
Author Organization [facility] [email or web address], Main Office Address [address] [place] [address] Assessment No assessment recorded. Plan of Treatment Reminders Order Date Submit Date Provider Last Modified By Organization Details Last Modified Time Details Appointments None recorded. Lab CMP, serum or plasma [address] Outpatient Lab, [address] [place], [address], 4 10:08:53 lipid panel, serum [address] Outpatient Lab, [address] [place], [address], 4 10:08:52 CMP, serum or plasma [address] Outpatient Lab, [address] [place], [address], 3 17:54:37 CBC w/ auto diff [address] Outpatient Lab, [address] [place], [address], 3 17:54:48 TSH + free T4, serum 2022 023 [facility] Outpatient Lab, [address] [place], [address], 3 17:49:11 urinalysis complete, reflex culture [address] Outpatient Lab, [address] [place], [address], 3 17:54:57 lipid panel, serum [address] Outpatient Lab, [address] [place], [address], 3 17:54:20 PSA, serum or plasma [address] Outpatient Lab, [address] [place], [address], 3 17:55:06 HbA1c (hemoglobin A1c), blood [address] Lab, [address] [place], [address], 3 17:54:28 Referral None recorded. Procedures colonoscopy screening (PROC) 2022 023 [email or web address] 4 Andie Ramos MD, [address] [facility], [address], [place], [address], 4 10:16:49 Surgeries None recorded. Imaging CT, angiogram, head + neck, w/ contrast - approved [id number] 2022 023 [email or web address] [facility] (Imaging), [address] [place], [address], 4 10:09:00 MRI, lumbar spine, w/o contrast [address] (Imaging), [address] [place], [address], 3 16:53:18 Medication Orders None recorded. Patient [...] WILL NOT BE REPOR EDEN. Not Available [facility] (Lab) [address] [place], [address], 05/18/2021 12:08:07 05/19/19 22 05/18/2021 LIPID PANEL cholesterol 175 mg/dL 140-19 9 NIH BEULAH NSUS RECOM MENDA TION FOR DENIS STERO L: ADULT CHILD LOW RISK: <200 <170 BORDE RLINE : <200- 239 ----- HIGH RISK: >240 >200 Not Available [facility] (Lab) [address] [place], [address], 05/18/2021 12:08:07 05/19/19 22 05/18/2021 LIPID PANEL triglyceride s 121 mg/dL 0-150 NIH BEULAH NSUS REPOR T RECOM MENDA TION FOR TRIGL YCERI NETO: ADULT CHILD LOW RISK: <150 ----- BODER LINE: 150-1 99 ----- HIGH RISK: >200 ----- Not Available [facility] (Lab) [address] [place], [address], 05/18/2021 12:08:07 05/19/19 22 05/18/2021 LIPID PANEL HDL cholesterol 39 mg/dL 40- low Not Available [facility] (Lab) [address] [place], [address], 05/18/2021 12:08:07 05/19/19 22 05/18/2021 HEMOG LOBIN A1C HA1C 5.3 % 4.0-6. 0 Diabe alejandra Scree janet Crite justin: <5.7% Consi stent with absen ce of diabe alejandra 5.7-6 .4% Consi stent with incre ased risk for diabe alejandra (pred iabet es) >OR=6 .5% Consi stent with diabe alejandra REFER ENCE: Diabe alejandra Care 2015, 39(Holden ppl.1 ):s13 -s22 Not Available [facility] (Lab) [address] [place], [address], 05/18/2021 12:48:55 05/19/19 22 05/18/2021 COMPR EHENS CHAD METAB OLIC PANEL carbon dioxide 28 mmol/ L 22-30 Not Available [facility] (Lab) [address] [place], [address], 05/18/2021 12:08:05 05/19/19 22 05/18/2021 COMPR EHENS CHAD METAB OLIC PANEL sodium 139 mmol/ L 137-14 5 Not Available [facility] (Lab) [address] [place], [address], 05/18/2021 12:08:05 05/19/19 22 05/18/2021 COMPR EHENS CHAD METAB OLIC PANEL potassium 4.7 mmol/ L 3.5-5. 1 Not Available [facility] (Lab) [address] [place], [address], 05/18/2021 12:08:05 05/19/19 22 05/18/2021 COMPR EHENS CHAD METAB OLIC PANEL chloride 103 mmol/ L 98-107 Not Available [facility] (Lab) [address] [place], [address], 05/18/2021 12:08:05 05/19/19 22 05/18/2021 COMPR EHENS CHAD METAB OLIC PANEL agap 12.7 mmol/ L 14-22 low Not Available [facility] (Lab) [address] [place], [address], 05/18/2021 12:08:05 05/19/19 22 05/18/2021 COMPR EHENS CHAD METAB OLIC PANEL glucose 108 mg/dL 70-99 high Not Available [facility] (Lab) [address] [place], [address], 05/18/2021 12:08:05 05/19/19 22 05/18/2021 COMPR EHENS CHAD METAB OLIC PANEL BUN 10 mg/dL 8-19 Not Available [facility] (Lab) [address] [place], [address], 05/18/2021 12:08:05 05/19/19 22 05/18/2021 COMPR EHENS CHAD METAB OLIC PANEL creatinine 0.88 mg/dL 0.66-1 .25 Not Available [facility] (Lab) [address] [place], [address], 05/18/2021 12:08:05 05/19/19 22 05/18/2021 COMPR EHENS CHAD METAB OLIC PANEL GFR >60 Refer ence Range : [place] ge GFR Healt hy Adult : >60 [...] or ethni c subgr oups, such as Hissc nics. Outsi de the valid ated elisabeth [...] calcu lataissatou is avail able on the [facility] websi te: https :[email or web address] [email or web address] marita/pretty kingess ional s/kdo qi/gf r_cal culat or Not Available [facility] (Lab) [address] [place], [address], 05/18/2021 12:08:05 05/19/19 22 05/18/2021 COMPR EHENS CHAD METAB OLIC PANEL alkaline phosphatase 53 U/L 38-[address] [facility] (Lab) [address] [place], [address], 05/18/2021 12:08:05 05/19/19 22 05/18/2021 COMPR EHENS CHAD METAB OLIC PANEL calcium 9.6 mg/dL 8.4-10 .2 Not Available [facility] (Lab) [address] [place], [address], 05/18/2021 12:08:05 05/19/19 22 05/18/2021 COMPR EHENS CHAD METAB OLIC PANEL alanine aminotransfe rase 37 U/L 0-50 Not Available [facility] (Lab) [address] [place], [address], 05/18/2021 12:08:05 05/19/19 22 05/18/2021 COMPR EHENS CHAD METAB OLIC PANEL aspartate aminotransfe rase 36 U/L 15-46 Not Available [facility] (Lab) [address] [place], [address], 05/18/2021 12:08:05 05/19/19 22 05/18/2021 COMPR EHENS CHAD METAB OLIC PANEL bilirubin, total 0.60 mg/dL 0.20-1 .30 Not Available [facility] (Lab) [address] [place], [address], 05/18/2021 12:08:05 05/19/19 22 05/18/2021 COMPR EHENS CHAD METAB OLIC PANEL total protein 7.7 g/dL 6.3-8. 2 Not Available [facility] (Lab) [address] [place], [address], 05/18/2021 12:08:05 05/19/19 22 05/18/2021 COMPR EHENS CHAD METAB OLIC PANEL albumin 4.8 g/dL 3.4-5. 0 Not Available [facility] (Lab) [address] [place], [address], 05/18/2021 12:08:05 05/19/19 22 05/18/2021 COMPR EHENS CHAD METAB OLIC PANEL globulin 2.9 g/dL 2.6-4. 2 Not Available [facility] (Lab) [address] [place], [address], 05/18/2021 12:08:05 05/19/19 22 05/18/2021 COMPR EHENS CHAD METAB OLIC PANEL A/G ratio 1.7 ratio 1.0-2. 0 Not Available [facility] (Lab) [address] [place], [address], 05/18/2021 12:08:05 05/07/19 22 05/06/2021 , pily newman No observ ation record ed. [id number], [place], [address], 04/14/2022 06:08:16 Result Notes None recorded. Problems Name Problem SNOMED Code Status Onset Date Resolution Date Notes Provider Name and Address Organization Details Recorded Time Benign essential hypertens ion 9011249 Active Not Available [facility] 3 06:01:24 Abdominal pain 15158307 Completed 202112/01/2021 Not Available [facility] 3 06:01:24 Sore throat 609891449 Active 2022 Not Available [facility] 3 06:01:24 Low back pain 421820964 Active 2021 Not Available [facility] 3 06:01:25 Hypertrig lyceridem ia 976052304 Active 2017 Not Available [facility] 3 06:01:25 History of atrial fibrillat ion 911230334 Active 2017 Not Available [facility] 3 06:01:25 Atrial fibrillat ion 60000201 Active Not Available [facility] 3 06:01:25 Hyperlipi demia 65752793 Active Not Available [facility] 3 06:01:25 Tinnitus 76266978 Active 2021 Not Available [facility] 3 06:01:25 Sleep apnea 27058287 Active Not Available [facility] 3 06:01:25 Hyperglyc emia 80600316 Active 2017 Not Available [facility] 3 06:01:25 Degenerat ion of lumbar intervert ebral disc 27800157 Active 2022 GONZALO Gamboa [address] [facility], [address], [place], [address] , [facility] 3 10:19:24 Lumbar radiculop athy 785187092 Active 2022 GONZALO Gamboa [address] [facility], [address], [place], [address] , [facility] 3 10:19:29 Steatotic liver disease 909553242 Active 2022 GONZALO Gamboa [address], [address], [place], [address] , [facility] 3 10:20:40 Subjectiv e pulsatile tinnitus of right ear 97663561104 53484 Active 2022 GONZALO Gamboa [address], [address], [place], [address] , [facility] 3 09:56:29 Problem Notes None recorded. Procedures Surgical History Date Name Laterality Status Provider Name and Address Organization Details Recorded Time Orthopedic Surgery completed Not Available [facility] 04/14/2022 05:56:43 Imaging Results Imaging Date Name Status LastModified by Organiz ation Details LastModified Time 05/06/2021 US, gallbladder completed [email or web address] [id number] [facility] [address], [place], [address], 04/14/2022 06:08:16 Procedure Notes None recorded. Medical [...] % 98 % 66 /min 97.5 [degF] 20490.8 9 g 136 mm[Hg] 80 mm[Hg] Not Available [facility] 3 05:57:39 Date Recorded Body mass index (BMI) Body height Oxygen saturation Oxygen saturation in Arterial blood by Pulse oximetry Heart rate Body weight Systolic blood pressure Diastolic blood pressure Provider Name and Address Organization Details Last Updated DateTime 2 26.6 kg/m2 168.91 cm 98 % 98 % 64 /min 75034.9 3 g 120 mm[Hg] 80 mm[Hg] Not Available [facility] 3 05:57:39 Date Recorded Body mass index (BMI) Body height Oxygen saturation Oxygen saturation in Arterial blood by Pulse oximetry Heart rate Body weight Systolic blood pressure Diastolic blood pressure Provider Name and Address Organization Details Last Updated DateTime 2 26.1 kg/m2 168.91 cm 99 % 99 % 69 /min 74050.1 5 g 138 mm[Hg] 70 mm[Hg] Not Available [facility] 3 05:57:39 Date Recorded Body height Body temperature Body weight Heart rate Oxygen saturation Oxygen saturation in Arterial blood by Pulse oximetry Systolic blood pressure Diastolic blood pressure Provider Name and Address Organization Details Last Updated DateTime 3 168.91 cm 98.1 [degF] 84457.7 4 g 84 /min 99 % 99 % 126 mm[Hg] 82 mm[Hg] Bernadette Llamas RN [facility] 3 09:49:16 Date Recorded Body mass index (BMI) Provider Name and Address Organization Details Last Updated DateTime 05/12/2022 26.2 kg/m2 GONZALO Gamboa [address] [place], [address], [facility] 05/12/2022 10:01:48 Date Recorded Body height Body weight Body temperature Heart rate Oxygen saturation Oxygen saturation in Arterial blood by Pulse oximetry Systolic blood pressure Diastolic blood pressure Provider Name and Address Organization Details Last Updated DateTime 3 168.91 cm 54700.1 5 g 98.2 [degF] 67 /min 99 % 99 % 128 mm[Hg] 80 mm[Hg] Bernadette Llamas RN [facility] 3 09:30:27 Date Recorded Body mass index (BMI) Systolic blood pressure Diastolic blood pressure Provider Name and Address Organization Details Last Updated DateTime 11/10/2022 26.1 kg/m2 128 mm[Hg] 80 mm[Hg] GONZALO Gamboa [address], [place], [address], [facility] 11/10/2022 09:58:34 Social History Question Answer Notes LastModified by Organizat ion Details LastModified Time Tobacco Smoking Status Never Smoker Not Available [facility] 04/14/2022 05:54:51 What Is Your Level Of Caffeine Consumption? Moderate Information not available 05/12/2022 How Much Tobacco Do You Chew? None [id number] Information not available 04/14/2022 In The 14 Days Before Symptom Onset, Have You Had Close Contact With A Laboratory-confirm ed COVID-19 While That Case Was Ill? No [email or web address] Information n ot available 05/11/2022 In The 14 Days Before Symptom Onset, Have You Had Close Contact With A Person Who Is Under Investigation For COVID-19 While That Person Was Ill? No [email or web address] Information not available 05/11/2022 What Type Of Diet Are You Following? REGULAR [id number] Information not available 04/14/2022 Which Illicit Or Recreational Drugs Have You Used? None [id number] Information not available 04/14/2022 Have There Been Any Changes To Your Family Or Social Situation? No [email or web address] Information no t available 05/11/2022 Do You Use Insect Repellent Routinely? No [email or web address] Information not available 05/11/2022 What Was The Date Of Your Most Recent Tobacco Screening? 07/23/2020 [id number] Information not available 04/14/2022 What Is Your Relationship Status? [email or web address] Information not available 05/11/2022 Do You Use Your Seat Belt Or Car Seat Routinely? Yes [email or web address] Information not available 05/12/2022 Are You Sexually Active? Yes [email or web address] Information not available 05/12/2022 Do You Have Smoke And Carbon Monoxide Detectors In Your Home? Yes [email or web address] Information not available 05/11/2022 Do You Use Sunscreen Routinely? No [id number] Information not available 04/14/2022 Have You Recently Traveled Abroad? No [email or web address] Information not available 05/11/2022 Do You Have Any Dietary Restrictions? No [email or web address] Information not available 05/11/2022 Sex: Male Functional Status Question Answer Note LastModified by Organizat ion Details LastModified Time Do you use any illicit or recreational drugs? No [email or web address] Information not available 05/11/2022 Do you or have you ever used any other forms of tobacco or nicotine? No [email or web address] Information not available 05/11/2022 What is your level of alcohol consumption? Moderate [email or web address] Information not available 05/12/2022 Are you currently employed? Yes [email or web address] Information not available 05/11/2022 What is your occupation? [employer] [id number] Information not available 04/14/2022 What is your exercise level? Moderate [id number] 26 Information not available 04/14/2022 Mental Status Question Answer Note LastModified by Organization D etails LastModified Time Do you feel stressed (tense, restless, nervous, or anxious, or unable to sleep at night)? [id number] [email or web address] Information not available 05/12/2022 Family History Relationship Description Onset Age of this Age Resolved Age Notes LastModified by Organization Details LastModified Time Maternal Grandfather Diabetes mellitus [id number] [id number] Not available 04/14/2022 05:56:44 Maternal Grandmother Malignant neoplastic disease [id number] [id number] Not available 04/14/2022 05:56:44 Maternal Uncle Malignant neoplastic disease [id number] Not available 04/14/2022 05:56:44 Medical History No medical history recorded. Past Encounters Encounter ID Performer Location Encounter Start Date Encounter Closed Date Diagnosis/Indication Diagnosis SNOMED-CT Code Diagnosis ICD10 Code Diagnosis Note [id number] MD CARMINA Smith_G Internal Med [facility] [address] [place] [address]. [place] [address] 06/04/2020 00:00:00 06/04/2020 16:10:34 [id number] MD CARMINA Smith_G Internal Med [facility] [address] [place] [address] [address] [place] [address] 07/23/2020 00:00:00 07/23/2020 12:51:29 [id number] MD CARMINA Smith_GMEmy Internal Med [facility] [address] [facility] [place] [address] 07/28/2020 00:00:00 07/28/2020 13:18:42 [id number] MD CARMINA Smith_GMEmy Internal Med [facility] [address] [facility] [place] [address] 12/02/2020 00:00:00 12/02/2020 11:00:21 [id number] MD CARMINA Smith_GMEmy Internal Med [facility] [address] [facility] [place] [address] 05/11/2021 00:00:00 05/11/2021 10:37:43 [id number] MD DANAE SmithS_GMG Internal Med [address] [place] [address] 12/01/2021 00:00:00 12/01/2021 13:36:25 [id number] GONZALO Gamboa [facility] Internal Med [place] [address] [place] [address] 05/12/2022 09:36:13 05/12/2022 10:28:34 Adult health examination 087158792 Z00.01 well exam completed Benign ess ential hypertension 5284169 I10 stable History of atrial fibrillation 797163045 Z86.79 stable. Hyperlipidemia 00430081 E78.5 fasting lipids due Degenerati on of lumbar intervertebral disc 68745416 M51.36 hx noted. sees pain management . Lumbar radiculopathy 128 328541 M54.16 symptomati c. hx of lumbar surgery. needs Updated MRI so Neurosurge ry will see him in consult. History of operative procedure on lumbar spinal structure 487993982 Z98.890 hx noted 2010 Screening for malignant neoplasm of prostate 612792757 Z12.5 PSA due Screening for malignant neoplasm of colon 706280099 Z12.11 baseline colonoscop y due. Diabetes m ellitus screening 457931592 Z13.1 screening for diabetes due Steatotic liver disease 802093425 K76.0 hx noted Long-term drug therapy 838200885 Z79.899 routine labs due. [id number] GONZALO Gamboa [facility] Internal Med [place] [address] [place] [address] 11/10/2022 09:21:57 11/10/2022 10:13:38 Benign essential hypertension 4064828 I10 stable on metoprolol ER 50mg daily. Hyperlipidemia 91226022 E78.5 diet and exercise managed. repeat fasting lipids in Nov. Long-term drug therapy 166785860 Z79.899 Subjective pulsatile tinnitus of right ear 8646751241 053022 H93.A1 pt reports onset this year of [...] ID Guarantor Name 05/12/2022 1 [place] [id number] 3 Naif Yu [id number] Naif Yu 11/10/2022 1 [place] [id number] 3 Naif Yu [id number] Naif Yu Notes Date Note Type Note Provider Name and Address Organization Details Recorded Time 3 text/html HypertensionReported bypatient.Onset/Timing:be tter Alleviating Factors:medication Associated Symptoms:no shortness of breath; no fatigue; no palpitations; no decline in exercise capacity; no snoring pt here to establish carec/o back painreports last summer was dx with fatty liver GONZALO Gamboa [address], [place], [address], [employer] 05/12/2022 21:08:01 3 text/html HypertensionReported bypatient.Onset/Timing:be tter Alleviating Factors:medication Associated Symptoms:no shortness of breath; no fatigue; no palpitations; no decline in exercise capacity; no snoring GONZALO Gamboa [address], [place], [address], [employer] 11/10/2022 19:17:14
--- OUTSIDE RECORDS SUMMARY | 2024-07-02 12:04 | XMS_ITS | CONTINUITY OF CARE DOCUMENT ---
Author Name anna castillo Address Unknown Organization [facility] Address [address] [place] [address] Phone [phone] Care Team Providers Care Library Science Instructor Name Role Phone Aditya Gayle MD Unavailable [phone] Zander Cerna MD Unavailable Zander Cerna MD Unavailable [phone] PROBLEMS Condition Status Date Provider Notes ETOH [...] In-person encounter Office Visit Aditya Gayle MD [facility] - In-person encounter Office Visit Aditya Gayle MD [facility] OSAHypercholesterolemiaSOB - In-person encounter Office Visit Buzz Dumont MD [facility] - In-person encounter Office Visit Krystian Vincent MD [facility] - In-person encounter Office Visit Buzz Dumont MD [facility] - In-person encounter Office Visit Mian Baker MD [facility] PALPITATIONS-03/27 HOLTER SR-SB HR 44-120 - In-person encounter Office Visit Buzz Dumont MD [facility] ATRIAL FIB LONE ON BETA RJ [...] Bing Dejesus pulse rate 92 /min Jono Mckniney vestatavo oxygen saturation, oximetry 98 % Jono [...] Location 1 triglyceride, serum, fasting 337 mg/dL [facility] 1 HDL cholesterol, serum 53 mg/dL [facility] 1 LDL cholesterol, serum 123 mg/dL [facility] 1 cholesterol, serum 243 mg/dL [facility] 3 red blood cell distribution width, size density 45.6 fL [facility] immature granulocytes, percentage of total cells, blood 0.3 % [facility] - 3 nucleated red blood cells as percent of blood leukocytes 0.0 % [facility] - 3 red blood cell (erythrocyte) count, per high power field 0.0 10*3/UL [facility] eosinophils as percent of blood leukocytes 1.1 % [facility] 3 neutrophils as percent of blood leukocytes 61.0 % [facility] - 3 Absolute Neutrophils 3.8 CELLS/UL [facility] 1.5 - 7.8 3 basophils as percent of blood leukocytes 0.8 % [facility] - [facility] Absolute Basophils 0.1 CELLS/UL [facility] 0.0 - 0.2 3 monocytes as percent of blood leukocytes 7.7 % [facility] - 3 Absolute Monocytes 0.5 CELLS/UL [facility] 0.2 - 1.0 3 lymphocytes as percent of blood leukocytes 29.1 % [facility] - 3 Absolute Lymphocytes 1.8 CELLS/UL [facility] 0.9 - 3.9 3 mean platelet volume 10.8 (?) [facility] - 3 platelet count 193.0 THOUSAND/ UL [...] day none [facility] smoking status Non-smoker [facility] MENTAL STATUS Date Observation Value Provider assessment [...] Payer name Policy type / Coverage type [place] red green party ID [facility] [id number] [employer] (2) Medicaid [id number] TREATMENT PLAN Date Name Performer Cardiology: 6: Cholesterol: 243mg/dL LDL Cholesterol:123mg/dL HDL Cholesterol: 53mg/dL Triglyceride: 337mg/dL Aditya Baker Cardiology:Will atte mpt to get dental device. Otherwise, will schedule titration sleep study. Aditya Baker Cardiology:S/P succe ssful cardioverison. Will keep on Xarelto and Amiodarone for 3 months. His CHADs score is 0. Aditya [facility] Cardiology:The pt fina s admitted recently to [place] with new onset atrial fibrillation. Aditya [facility] Cardiology:The follo wing medications were removed from the medication list: Lovastatin 20 Mg Tabs (Lovastatin) ..... 1 tab by mouth daily Aditya [facility] Cardiology:BP today: 140/98 P rior BP: 127/64 (08/11/2010) The following medications were removed from the medication list: Aspirin 81 Mg Tabs (Aspirin) ..... One tab. daily Metoprolol Succinate 50 Mg Tb24 (Metoprolol succinate) ..... One tab. daily Aditya [facility] Cardiology Aditya [facility] Cardiology:The pt fina s admitted recently to [place] with new onset atrial fibrillation. [facility] Cardiology:The pt fina s admitted recently to [place] with new onset atrial fibrillation. An attempt [...] today: 127/64 Prior BP: 130/89 (05/28/2010) S rust Echo Findings: Test considered to be negative [...] this problem includes: Toprol Xl 50 Mg Jw86a-hcl (Metoprolol succinate) ..... 1 tab daily Aspirin 81 Mg Tabs (Aspirin) ..... One tab. daily BP today: 147/83 P rior BP: 129/68 (03/19/2010) Buzz Dumont MD follow up: H is updated medication list for this problem includes: Toprol Xl 50 Mg Mq38y-wir (Metoprolol succinate) ..... 1 tab daily Aspirin [...] this problem includes: Toprol Xl 50 Mg Jo77a-mwy (Metoprolol succinate) ..... 1 tab daily BP [...] this problem includes: Toprol Xl 50 Mg Sc21e-knc (Metoprolol succinate) ..... 1 tab daily BP today: 129/68 Prior BP: 151/78 (02/03/2010) S tress Echo Findings: Test considered to be negative by ECG. Baseline echo was normal and post exercise echo showed expected changes. (01/26/2010) Orders: E KG ([id number]) H olter Monitor 24 Hr ([id number]) B ASIC METABOLIC PANEL W/EGFR (20425) M AGNESIUM (622) Mian Baker MD palpitations : T he following medications were removed from the medication list: Aspirin 325 Mg Tabs (Aspirin) ..... One tab daily His updated medication list for this problem includes: Toprol Xl 50 Mg Ss19l-ozr (Metoprolol succinate) ..... 1 tab daily BP today: 129/68 P rior BP: 151/78 (02/03/2010) Mian Baker MD palpitations Mian Baker MD Hosp follow up: B P today: 151/78 Prior BP: / () His updated medication list for this problem includes: Toprol Xl 50 Mg Yt87o-zft (Metoprolol succinate) ..... 1 tab daily BP today: 151/78 Prior BP: / () S tress Echo Findings: Test considered to be negative by ECG. Baseline echo was normal and post exercise echo showed expected changes. (01/26/2010) Buzz Dumont MD Hosp follow up: H is updated medication list for this problem includes: Toprol Xl 50 Mg Kv52g-kxz (Metoprolol succinate) ..... 1 tab daily BP today: 151/78 Prior BP: / () S tress Echo Findings: Test considered to be negative by ECG. Baseline echo was normal and post exercise echo showed expected changes. (01/26/2010) Buzz Dumont MD Hosp follow up: H is updated medication list for this problem includes: Toprol Xl 50 Mg Ik99o-twv (Metoprolol succinate) ..... 1 tab daily BP [...] Gayle MD 3 months com pleted SNOMED-CT: [id number] Current Medications Documented Aditya Gayle MD completed EKG Aditya Gayle MD completed SNOMED-CT: [id number] 076508 Current Medications Documented Aditya Gayle MD completed EKG Mian Baker MD completed
--- OUTSIDE RECORDS SUMMARY | 2024-07-02 12:04 | XMS_ITS | Encounter Summary ---
Author Organization [facility] Healthcare Address [address] [place] [address] Care Team Providers Care Product Safety Engineer Name Role Phone Kathrine Gresham Primary Care Pr ovider Encounter Details Date Type Department Care Team (Late st Contact Info) Description 04/18/2024 Orders Only [facility] Information Management [address] [place] [phone] Taylor Mccurdy NP [address] [facility] [address] [place] [address] Social History Tobacco Use Types Packs/Day Years Used Date Smoking Tobacco: Never Sex and Gender Information Value Date Recorded Sex Assigned at Not on file 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 Gender Identity Not on file Sexual Orientation Not on file documented as of this encounter Plan of Treatment Not on file documented as of this encounter Procedures Procedure Name Priority Date/Time Associated Diagnosis Comments SLEEP LAB/STUDY - RESULT 04/18/2024 documented in this encounter Results * SLEEP LAB/STUDY - RESULT (04/18/2024) Taylor Mccurdy NP Final Res ult documented in this encounter Visit Diagnoses Not on filedocumented in this encounter Care Teams Product Safety Engineer Relationship Specialty Start Date End Date Kathrine Gresham PA [address] [place] [address] PCP - General Physician Hogshead Cooper 03/20/24 documented as of this encounter
--- OUTSIDE RECORDS SUMMARY | 2024-07-02 12:04 | XMS_ITS | Clinical Summary ---
Author Organization [place] [address] [address] [place] [address] [address] [place] [address] Care Team Providers Care Screen Cleaner Name Role Phone FatumaellaKathrine Primary Care Pr ovider Allergies No known active allergies Medications aspirin 81 mg chewable tablet Take 1 tablet (81 mg total) by mouth daily 03/21/2024 Active meloxicam (MOBIC) 15 mg tablet Take 1 tablet (15 mg total) by mouth daily 01/06/2024 Active metoprolol XL (TOPROL-XL) 50 mg extended release tabletIndication s:Paroxysmal atrial flutter (HCC),PAF (paroxysmal atrial fibrillation) (HCC) Take 1 tablet (50 mg total) by mouth daily 30 tablet 11 04/03/2024 Active Active Problems Problem Noted Date Diagnosed Date PIERCE (obstructive sleep apnea) 04/03/2024 PAF (paroxysmal atrial fibrillation) 04/03/2024 Chest discomfort 04/03/2024 Paroxysmal atrial flutter 03/26/2024 Encounters Date Type Department Care Team Description 07/02/2024 11:15 AM CDT Procedure visit [facility] Cardiology [address] [place] [address] [address] [place] [address] Paroxysmal atrial flutter (HCC) 07/02/2024 Telephone [facility] Cardiology [address] [place] [address] [address] [place] [address] Rnoda Long MD 06/29/2024 Orders Only [facility] Cardiology [address] [place] [address] [address] [place] [address] ProviderCitlali MD 05/15/2024 10:30 AM CDT Office Visit [facility] Cardiology [address] [place] [address] [place] [phone] Taylor Mccurdy NP PAF (paroxysmal atrial fibrillation) (HCC) (Primary Dx); PIERCE (obstructive sleep apnea) 05/09/2024 11:15 AM CDT Ancillary Procedure [facility] Cardiology [address] [place] [address] [place] [phone] Chest discomfort; Paroxysmal atrial flutter (HCC); PAF (paroxysmal atrial fibrillation) (HCC) 05/09/2024 Results Follow-Up [facility] Cardiology [address] [place] [address] [place] [phone] Ronda Long MD Stress Echo Exercise WO Doppler/CF 04/30/2024 Telephone [facility] Cardiology [address] [place] [address] [place] [phone] Ronda Long MD 04/18/2024 Orders Only [facility] Information Management [address] [place] [address] Taylor Mccurdy NP 04/05/2024 Results Follow-Up [facility] Cardiology [address] [place] [address] [place] [phone] Taylor Mccurdy NP 48 HR Holter Monitor 04/04/2024 Telephone [facility] Cardiology [address] [place] [address] [place] [phone] Taylor Mccurdy NP sleep study order from Last 3 Months Surgical History Surgery Date Site/Laterality Comments BACK SURGERY N/A Family History Medical History Relation Name Comments Cancer Father COPD Mother Diabetes Mother Hypertension Mother Relation Name Status Comments Father Mother Alive Social History Tobacco Use Types Packs/Day Years Used Date Smoking Tobacco: Never Tobacco Cessation:Counseling Given: Not Answered Sex and Gender Information Value Date Recorded Sex Assigned at Not on file 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 Gender Identity Not on file Sexual Orientation Not on file Obstetrics History Last Filed Vital Signs Vital Sign Reading Time Taken Comments Blood Pressure 126/64 07/02/2024 11:41 AM CDT Pulse 136 07/02/2024 11:41 AM CDT Temperature - - Respiratory Rate - - Oxygen Saturation 97% 07/02/2024 11:41 AM CDT Inhaled Oxygen Concentration - - Weight 78.9 kg (174 lb) 05/15/2024 10:33 AM CDT Height 170.2 cm (5' 7 ) 05/15/2024 10:33 AM CDT Body Mass Index 27.25 05/15/2024 10:33 AM CDT Plan of Treatment Health Maintenance Due Date Last Done Comments Colon Cancer Screening-Colonoscopy 1975 Depression Screening 1975 Hepatitis C Screening 1973 Prostate Cancer Screening-PSA 1973 DTaP/Tdap/Td Vaccine (1 - Tdap) 1984 Hepatitis B Screening 10/27/1991 Regular Well Visit/Exam 18-64 10/27/1991 Zoster Vaccine (1 of 2) 10/27/2023 Influenza Vaccine (Season Ended) 2024 Pneumococcal vaccine <65 Aged Out No longer eligible based on patient's age to complete this topic Procedures Procedure Name Priority Date/Time Associated Diagnosis Comments SLEEP STUDY Routine 06/15/2024 4:53 PM CDT STRESS ECHO EXERCISE WO DOPPLER/CF WO CONTRAST Routine 05/09/2024 12:07 PM CDT Chest discomfort Paroxysmal atrial flutter (HCC) PAF (paroxysmal atrial fibrillation) (HCC) SLEEP LAB/STUDY - RESULT 04/18/2024 from Last 3 Months Results * Sleep Study (06/15/2024 4:53 PM CDT) us Historical Provider SLEEP CENTER ORDERABLES E dited Result - Final * STRESS ECHO EXERCISE WO DOPPLER/CF WO CONTRAST (05/09/2024 12:07 PM CDT) Anatomical Region Laterality Modality Ultrasound 05/09/2024 11:1 9 AM CDT Narrative 05/09/2024 2:10 PM CDT [facility] [address], [place], [place] [id number] [address], [place] [address] P:[phone] P:[phone] Echocardiographic Report Patient Name: DANAE ZAIDI : 1975 Study Date: 05/09/2024 11:19:27 AM Gender: M Tech: [employer] Location: [place] Ref Provider: RONDA LONG Height(Cm): 170 BSA: 1.95 Weight(Kg): 80.3 Heart Rate: 66 BP: 138 / 81 Quality: Good Order Provider: RONDA LONG PROCEDURES: Stress Echo Report: Treadmill stress echocardiogram. INDICATIONS: Atrial Fibrillation, Chest Pain, Medications: Metoprolol, Aspirin, Mobic, and Stress test monitored by: Rita Kearney. FINDINGS: Stress Echo: Exercise Time - 13.06 min Baseline Heart Rate - 74 Peak Heart Rate - 175 Predicted Maximal Heart Rate - 170 85% MPHR - 145 Baseline BP - 138/81 Peak BP - 174/82 Rate Pressure Product - 03865 METS Achieved - 14.80 Percent Predicted Maximal HR Achieved - 103 % Interpretation Site: Exam was interpreted at [facility]. Performance: Above average exercise functional capacity. Hemodynamic Response: Normal blood pressure response. Arrhythmia: Occasional isolated premature ventricular contractions. Termination: Leg Fatigue. Resting ECG: Normal EKG. Exercise ECG: Normal exercise ECG. Resting LV Function: Normal left ventricular size, normal systolic function, normal wall thickness with no segmental wall motion abnormalities at rest. Post Stress LV Function: Post exercise left ventricular global systolic contractility is hyperdynamic, no segmental wall motion abnormalities, and chamber size is smaller. - CONCLUSIONS: No exercise induced chest pain. No ECG evidence of ischemia. No Echocardiographic evidence of ischemia. Electronically Signed By: Ronda Long MD 05/09/2024 2:10:06 PM CDT Procedure Note Ronda Long MD - 05/09/2024 [facility] [address], [place] [address] [address] [facility] [address], [place] [address] P:[phone] P:[phone] Echocardiographic Report Patient Name: DANAE ZAIDI : 1975 Study Date: 05/09/2024 11:19:27 AM Gender: M Tech: [facility] Location: [place] Ref Provider: RONDA LONG Height(Cm): 170 BSA: 1.95 Weight(Kg): 80.3 Heart Rate: 66 BP: 138 / 81 Quality: Good Order Provider: RONDA LONG PROCEDURES: Stress Echo Report: Treadmill stress echocardiogram. INDICATIONS: Atrial Fibrillation, Chest Pain, Medications: Metoprolol, Aspirin, Mobic,and Stress test monitored by: Rita Kearney. FINDINGS: Stress Echo: Exercise Time - 13.06 min Baseline Heart Rate - 74 Peak Heart Rate - 175 Predicted Maximal Heart Rate - 170 85% MPHR - 145 Baseline BP - 138/81 Peak BP - 174/82 Rate Pressure Product - 76559 METS Achieved - 14.80 Percent Predicted Maximal HR Achieved - 103 % Interpretation Site: Exam was interpreted at [facility]. Performance: Above average exercise functional capacity. Hemodynamic Response: Normal blood pressure response. Arrhythmia: Occasional isolated premature ventricular contractions. Termination: Leg Fatigue. Resting ECG: Normal EKG. Exercise ECG: Normal exercise ECG. Resting LV Function: Normal left ventricular size, normal systolic function, normal wallthickness with no segmental wall motion abnormalities at rest. Post Stress LV Function: Post exercise left ventricular global systolic contractility ishyperdynamic, no segmental wall motion abnormalities, and chamber size is smaller. - CONCLUSIONS: No exercise induced chest pain. No ECG evidence of ischemia. No Echocardiographic evidence of ischemia. Electronically Signed By: Ronda Long MD 05/09/2024 2:10:06 PM CDT us Ronda Long MD CV ECHO PROCEDURES Final Result * SLEEP LAB/STUDY - RESULT (04/18/2024) Taylor Mccurdy NP Final Res ult from Last 3 Months Insurance [employer] ACCESS CHOICE Care Teams Screen Cleaner Relationship Specialty Start Date End Date Kathrine Gresham PA [address] [place] [address] PCP - General Physician Associate Business Analyst 03/20/24
--- OUTSIDE RECORDS SUMMARY | 2024-07-02 12:04 | XMS_ITS | Encounter Summary ---
Author Organization [facility] Healthcare Address [address] [place] [address] Care Team Providers Care Brine Tank Operator Name Role Phone Kathrine Gresham Primary Care Pr ovider Reason for Visit * Reason Comments Atrial Flutter EKG only visit * Cardiology (Routine) - Closed Specialty Diagnoses / Procedures Referred By Contac t Referred To Contact Diagnoses Paroxysmal atrial flutter (HCC) Procedures ECG 12 lead Taylor Mccurdy NP [address] [facility] [address] [address] Phone: tel: fax: [facility] Referral ID Status Reason Start Date Expiration Date Visits Re quested Visits Authorized [id number] Closed 07/02/2024 08/01/2025 1 1 Encounter Details Date Type Department Care Team (Latest Contact Info) Description 07/02/2024 11:15 AM CDT Procedure visit [facility] Cardiology [address] [facility] [address] [place] [phone] Paroxysmal atrial flutter (HCC) Social History Tobacco Use Types Packs/Day Years Used Date Smoking Tobacco: Never Sex and Gender Information Value Date Recorded Sex Assigned at Not on file 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 BP 126/64, left arm, sitting. HR 136 BPM.SpO2 97% on room air. EKG performed showing atrial flutter. LUIS Salinas escorted patient to [facility] ED with copy of EKG. EKG given to Dr. Nunez for review. documented in this encounter Plan of Treatment Not on file documented as of this encounter Visit Diagnoses Diagnosis Paroxysmal atrial flutter (HCC) documented in this encounter Orders EKG Orders Without Results Count Last Ordered D ate First Ordered Date ECG 12-LEAD 1 07/02/2024 documented in this encounter Care Teams Brine Tank Operator Relationship Specialty Start Date End Date Kathrine Gresham PA [address] [place] [address] PCP - General Physician Nutrition Consultant 03/20/24 documented as of this encounter
--- OUTSIDE RECORDS SUMMARY | 2024-07-02 12:04 | XMS_ITS | Encounter Summary ---
Author Organization [facility] Healthcare Address [address] [place] [address] Care Team Providers Care Medical Office Specialist Name Role Phone Kathrine Gresham Primary Care Pr ovider Encounter Details Date Type Department Care Team (Late st Contact Info) Description 05/09/2024 Results Follow-Up [facility] Cardiology [address] [phone] Stewart Kim MD [address] [facility] [place] [address] [place], [place] [phone] Stress Echo Exercise WO Doppler/CF Social History Tobacco Use Types Packs/Day Years Used Date Smoking Tobacco: Never Sex and Gender Information Value Date Recorded Sex Assigned at Not on file 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
--- OUTSIDE RECORDS SUMMARY | 2024-07-02 12:05 | XMS_ITS | Encounter Summary ---
Author Organization [facility] Healthcare Address [address] [place] [address] Care Team Providers Care Medical Registrar Name Role Phone Kathrine Gresham Primary Care Pr ovider Encounter Details Date Type Department Care Team (Late st Contact Info) Description 06/29/2024 Orders Only [facility] Cardiology [address] [place] [address] Provider, MD Citlali [address] [place] [phone] Social History Tobacco Use Types Packs/Day Years Used Date Smoking Tobacco: Never Sex and Gender Information Value Date Recorded Sex Assigned at Not on file 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 Gender Identity Not on file Sexual Orientation Not on file documented as of this encounter Plan of Treatment Not on file documented as of this encounter Procedures Procedure Name Priority Date/Time Associated Diagnosis Comments SLEEP STUDY Routine 06/15/2024 4:53 PM CDT documented in this encounter Results * Sleep Study (06/15/2024 4:53 PM CDT) Historical Provider SLEEP CENTER ORDERABLES E dited Result - Final documented in this encounter Visit Diagnoses Not on filedocumented in this encounter Care Teams Medical Registrar Relationship Specialty Start Date End Date Kathrine Gresham PA [address] [place] [address] PCP - General Physician Line Maintenance 03/20/24 documented as of this encounter
--- OUTSIDE RECORDS SUMMARY | 2024-07-02 12:05 | XMS_ITS | Encounter Summary ---
Author Organization [facility] Healthcare Address [address] [place] [address] Care Team Providers Care Feed Mill Operator Name Role Phone Kathrine Gresham Primary Care Pr ovider Reason for Referral * Cardiology (Routine) - Closed Specialty Diagnoses / Procedures Referred By Contac t Referred To Contact Diagnoses Paroxysmal atrial flutter (HCC) Procedures ECG 12 lead Taylor Mccurdy NP [address] [facility] [address] [address] Phone: tel: fax: [facility] Referral ID Status Reason Start Date Expiration Date Visits Re quested Visits Authorized [id number] Closed 07/02/2024 08/01/2025 1 1 Encounter Details Date Type Department Care Team (Late st Contact Info) Description 07/02/2024 Telephone [facility] Cardiology [address] [phone] Stewart Kim MD [address] [address] Social History Tobacco Use Types Packs/Day Years Used Date Smoking Tobacco: Never Sex and Gender Information Value Date Recorded Sex Assigned at Not on file 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 Pt is not feeling well and has already take extra metoprolol today. Discussed going to the ED and pt agreeable. * Telephone Encounter - Rita Dove RN - 07/02/2024 9:39 AM CDT Spoke with pt, since Tuesday when pt is moving around his HR goes up to 150- 170's, when he is resting it goes down to 55-80's. Pt took an extra metoprolol 25 initially and it didn't help so since then he started taking an extra metoprolol 50mg daily instead and it hasn't helped. Pt said he feels tired. Pt said he didn't feel like he needed to go to the ED because his HR comes down with rest andis not sustained for hours at a time. Scheduled pt for EKG in office this morning. * Telephone Encounter - Carlee Llamas - 07/02/2024 9:27 AM CDT Pt states his HR has been in the 160-170s when standing up and moving around since Tuesday 06/27. Reports feeling really tired. Requesting to have an EKG done in the office today. Contact: documented in this encounter Plan of Treatment Scheduled Orders Name Type Priority Associated Diagnoses Orde r Schedule ECG 12 lead ECG Routine Paroxysmal atrial flutter (HCC) 1 Occurrences starting 07/02/2024 until 07/02/2025 documented as of this encounter Visit Diagnoses Diagnosis Paroxysmal atrial flutter (HCC)- Primary documented in this encounter Care Teams Feed Mill Operator Relationship Specialty Start Date End Date Kathrine Gresham PA [address] [place] [address] PCP - General Physician Camera Repair Technician 03/20/24 documented as of this encounter
--- OUTSIDE RECORDS SUMMARY | 2024-07-02 12:05 | XMS_ITS | Clinical Summary ---
Author Organization [facility] Address [address] [place] [address] Care Team Providers Care Military Pay Clerk Name Role Phone Unavailable Primary Care Provider [...] Encounters Date Type Department Care Team Description 06/19/2024 10:00 AM CDT Office Visit [facility] Orthopedic Surgery at the [address] [place] [phone] Stewart Leigh PA-C Tear of medial collateral ligament of right knee, subsequent encounter (Primary Dx) 05/29/2024 External Device Data ST[facility] ABSTRACTION Provider, Abstract 05/22/2024 9:45 AM CDT Office Visit [facility] Orthopedic Surgery at the [address] [place] [phone] See Al MD Tear of medial collateral ligament of right knee, initial encounter (Primary Dx) 04/24/2024 1:40 PM CDT Office Visit [facility] Orthopedic Surgery at the [place] [address] [facility] [address] [place] [phone] See Al MD Tear of medial collateral ligament of right knee, initial encounter (Primary Dx) 04/24/2024 External Device Data STL ABSTRACTION Provider, Abstract 04/24/2024 External Device Data STL ABSTRACTION Provider, Abstract 04/24/2024 External Device Data STL ABSTRACTION Provider, Abstract 04/24/2024 External Device Data ST[facility] ABSTRACTION Provider, Abstract 04/23/2024 3:54 PM CDT - 04/23/2024 11:59 PM CDT Hospital Encounter [facility] [address] [address] [place] [phone] Hollie Vernon PA-C Discharge Disposition: Home or Self Care 04/23/2024 2:40 PM CDT Ancillary Procedure [facility] Orthopedic Surgery at the [address] [place] [phone] Hollie Vernon PA-C Acute pain of right knee 04/23/2024 2:30 PM CDT Office Visit [facility] Orthopedic Surgery at the [address] [place] [phone] Hollie Vernon PA-C Internal derangement of knee [...] 04/24/2024 1:39 PM CDT Plan of Treatment Health Maintenance Due [...] of the right knee. DICTATION LOCATION: Location [address] [place] [address] Narrative 04/23/2024 3:09 PM CDT EXAMINATION: XR [...] right knee. DICTATION LOCATION: Location - [facility] Hollie Vernon PA-C DIAGNOSTIC IMAGING [place] [place] Final Result from Last 3 Months Insurance [facility] BLUE ACCESS CHOICE [facility]
--- OUTSIDE RECORDS SUMMARY | 2024-07-02 12:05 | XMS_ITS | Referral Summary ---
Author Organization [place] [address] [place] [phone] Care Team Providers Care Service Department Manager Name Role Phone MartínezKathrine ivey Franny SÁNCHEZ Primary Care Pr ovider Encounters Date Type Department Care Team Description 07/02/2024 11:15 AM CDT Procedure visit [facility] Cardiology [address] [place] [address] [place] [phone] Paroxysmal atrial flutter (HCC) 07/02/2024 Telephone [place] [address] [place] [phone] Ronda Long MD 06/29/2024 Orders Only [place] [address] [place] [phone] ProviderCitlali MD 05/15/2024 10:30 AM CDT Office Visit [place] [address] [place] [phone] Taylor Mccurdy NP PAF (paroxysmal atrial fibrillation) (HCC) (Primary Dx); PIERCE (obstructive sleep apnea) 05/09/2024 Results Follow-Up [facility] Cardiology [address] [place] [address] [place] [phone] Ronda Long MD Stress Echo Exercise WO Doppler/CF 05/09/2024 11:15 AM CDT Ancillary Procedure [facility] Cardiology [address] [place] [address] [place] [phone] Chest discomfort; Paroxysmal atrial flutter (HCC); PAF (paroxysmal atrial fibrillation) (HCC) 04/30/2024 Telephone [facility] Cardiology [address] [place] [phone] Ronda Long MD 04/18/2024 Orders Only [facility] [place] Information Management [address] [place] [phone] Taylor Mccurdy NP 04/05/2024 Results Follow-Up [facility] Cardiology [address] [facility] [address] [place] [phone] Taylor Mccurdy NP 48 HR Holter Monitor 04/04/2024 Telephone [facility] Cardiology [address] [facility] [address] [place] [phone] Taylor Mccurdy NP sleep study order from Last 3 Months Allergies No known active allergies Medications aspirin [...] Chest discomfort 04/03/2024 Paroxysmal atrial flutter 03/26/2024 Social History Tobacco Use Types Packs/Day Years Used Date Smoking Tobacco: Never Tobacco Cessation:Counseling Given: Not Answered Sex and Gender Information Value Date Recorded Sex Assigned at Not on file 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 Gender Identity Not on file Sexual Orientation [...] 05/15/2024 10:33 AM CDT Plan of Treatment Not on file Procedures Procedure Name Priority Date/Time Associated Diagnosis [...] CDT [facility] Cardiology [address] [facility] [address], [place] [address] [address] [facility] [address], [place] [address] P:[phone] P:[phone] Echocardiographic Report Patient Name: DANAE ZAIDI : 1975 Study Date: 05/09/2024 11:19:27 AM Gender: M Tech: [facility] Location: [facility] Provider: RONDA LONG Height(Cm): 170 BSA: 1.95 [...] BP - 174/82 Rate Pressure Product - 70895 METS Achieved - 14.80 Percent Predicted Maximal HR Achieved - 103 % Interpretation Site: Exam was interpreted at [facility]. Performance: Above average exercise functional capacity. [...] 05/09/2024 [facility] Cardiology [address] [facility] [address], [place] [address] [address] [facility] [address], [place] [address] P:[phone] P:[phone] Echocardiographic Report Patient Name: DANAE ZAIDI : 1975 Study Date: 05/09/2024 11:19:27 AM Gender: M Tech: [facility] Location: [place] Ref Provider: RONDA LONG Height(Cm): 170 BSA: [...] BP - 174/82 Rate Pressure Product - 54118 METS Achieved - 14.80 Percent Predicted Maximal HR Achieved - 103 % Interpretation Site: Exam was interpreted at [facility]. Performance: Above average exercise functional capacity. [...] Ronda Long MD 05/09/2024 2:10:06 PM CDT Ronda Long MD CV ECHO PROCEDURES Final Result * SLEEP LAB/STUDY - RESULT (04/18/2024) Taylor Mccurdy NP Final Res ult from Last 3 Months Insurance [employer] Care Teams Service Department Manager Relationship Specialty Start Date End Date Kathrine Gresham PA [address] [place] [address] PCP - General Physician Salesperson Sewing Machines 03/20/24
--- NOTE | 2024-07-02 13:05 | ED_ITS ---
HPI - Arrhythmia/Palpitations General Chief Complaint: Arrhythmia/Palpitations <Chinyere Ryan PA-C - Last Filed: 07/04/24 17:11> Stated Complaint: High heart rate-worse with exertion <Chinyere Ryan PA-C - Last Filed: 07/04/24 17:11> Time Seen by Provider: 07/02/24 13:05 <Chinyere Ryan PA-C - Last Filed: 07/04/24 17:11> Focused HPI: This is a 48 year old male that presents to the ER for palpitations. Reports he has had elevations in his heart rate to the 160s-170s. Reports history of atrial fibrillation. He takes Metoprolol daily. He has taken an additional does of his Metoprolol to see if this helps with his symptoms, but it does not seem to be helping. Reports some associated chest discomfort. Denies shortness of breath. His weapons and tactics instructor is Dr. Kim. GENERAL: Well-appearing, well-nourished, and in no acute distress. HEAD: Normocephalic, atraumatic. CHEST: Clear to auscultation. No respiratory distress. HEART: Irregularly irregular NEURO: Alert and oriented x3. Patient screened in triage and initial orders placed. Additional care and disposition to be based upon diagnostic testing and treatment. <Chinyere Ryan PA-C - Last Filed: 07/04/24 17:11> History of Present Illness HPI narrative: Agree with the above with the following additions/corrections: States his heart rate has episodically been going to the 140s and occasionally 160s-180s, particularly when he is standing/moving around. He states these episodes will last anywhere from 15 minutes to 5 hours and he is concerned he is going to have a stroke as a result. He called his cardiology office and was able to get in this morning for an outpatient EKG and was advised to present to the ED. No recent cough, fevers, or chills. Denies any lower extremity edema. He states he does not have symptoms while at rest but at his age in because he works he does have to be on his feet and I can't spend my life laying in bed. Symptoms order for worse with exertion and in addition to the heart rate which is noted on his watch, he experiences lightheadedness and feels the palpitations. He will get short of breath during these episodes but not at rest. After episodes he feels increased fatigue. He is on 50 mg of metoprolol daily which he has been taking regularly and then supplementing as he was directed with an additional 25 mg p.r.n.. A few times this week his symptoms have been severe enough that he added to this and took a total of an additional 25 mg metoprolol for a total of 100 mg daily. He is also on 81mg aspirin but otherwise anticoagulation. He has previously worn event monitor/Holter monitor for approximately 48 hours. Denies any chest pain. <Ratna Hernandez MD - Last Filed: 07/03/24 06:23> Related Data Home Medications: Home Medications Medication Instructions Recorded Confirmed Last Taken Type testosterone cypionate 200 mg/mL 80 mg subcut .twice weekly 03/20/24 06/25/24 03/18/24 History intramuscular oil <Chinyere Ryan PA-C - Last Filed: 07/04/24 17:11> Allergies/Adverse Reactions: Allergies Allergy/AdvReac Type Severity Reaction Status Date / Time No Known Allergies Allergy Verified 03/20/24 12:34 <Chinyere Ryan PA-C - Last Filed: 07/04/24 17:11> Review of Systems 2 Review of Systems: All systems reviewed & are unremarkable except as noted in HPI and below <Chinyere Ryan PA-C - Last Filed: 07/04/24 17:11> FOR[facility]LY [facility] Past Medical History Medical History: Medical History Obstructive sleep apnea Paroxysmal atrial fibrillation <Chinyere Ryan PA-C - Last Filed: 07/04/24 17:11> Surgical History Surgical History: Surgical History History of cardioversion History of lumbar surgery <Chinyere Ryan PA-C - Last Filed: 07/04/24 17:11> Family History Family History: Family History Grandparent A-fib Diabetes mellitus Mother Chronic obstructive pulmonary disease Diabetes mellitus Hypertension Grandparent Chronic obstructive pulmonary disease Cervical cancer Grandparent Chronic obstructive pulmonary disease Other Lung cancer <Chinyere Ryan PA-C - Last Filed: 07/04/24 17:11> Social History Social History: Social History Social History: Surrogate medical decision maker: shweta Kelly ([phone]). Code status: Full code. Smoking status: Never smoker Second hand tobacco smoke exposure: Yes Alcohol intake: former Substance use: current Substance use type: marijuana Do You Feel Safe in your Home?: Yes Lack of Transportation: No Lack of Food: Never True Current Housing: I Have Housing Concerned About Future Housing: No Difficulty Paying Gas/Electric Bills: No Difficulty Paying for Meds: No Currently Unemployed: No Education: High School Diploma/GED Difficulty w/ Childcare or Family Care: No Occupation/Education: occupation Additional occupation/education comments: [employer] Spiritual care concerns: No <Chinyere Ryan PA-C - Last Filed: 07/04/24 17:11> Exam 2 Narrative: GENERAL: Well-appearing, well-nourished, and in no acute distress. HEAD: Normocephalic, atraumatic. EYES: Non injected, non icteric ENT: Nares clear, no rhinorrhea or epistaxis. NECK: Supple. CHEST: Speaking in full sentences. No respiratory distress. HEART: IRRegular rate and rhythm, rate controlled ABDOMEN: Soft, nondistended. EXTREMITIES: Normal range of motion. No bilateral lower extremity edema. SKIN: Warm, dry, no rash. NEURO: No focal deficits. Alert and oriented x3. PSYCH: Normal mood and affect. <Ratna Hernandez MD - Last Filed: 07/03/24 06:23> Course Vital Signs Vital signs: Vital Signs Temperature 97.6 F 07/02/24 11:45 Pulse Rate 74 07/02/24 11:45 Respiratory Rate 16 07/02/24 11:45 Blood Pressure 136/90 07/02/24 11:45 Pulse Oximetry 99 07/02/24 11:45 Temperature 97.6 F 07/02/24 11:45 Pulse Rate 84 07/02/24 19:02 Respiratory Rate 18 07/02/24 18:55 Blood Pressure 129/94 H 07/02/24 18:55 Pulse Oximetry 99 07/02/24 18:55 <Chinyere Ryan PA-C - Last Filed: 07/04/24 17:11> Vital Signs Temperature 97.6 F 07/02/24 11:45 Pulse Rate 74 07/02/24 11:45 Respiratory Rate 16 07/02/24 11:45 Blood Pressure 136/90 07/02/24 11:45 Pulse Oximetry 99 07/02/24 11:45 Temperature 97.6 F 07/02/24 11:45 Pulse Rate 84 07/02/24 19:02 Respiratory Rate 18 07/02/24 18:55 Blood Pressure 129/94 H 07/02/24 18:55 Pulse Oximetry 99 07/02/24 18:55 <Ratna Hernandez MD - Last Filed: 07/03/24 06:23> MDM - Arrhythmia/Palpitations MDM Narrative Medical decision making narrative: Patient presents with episodes elevated heart rate with palpitations. These episodes occur particularly with exertion and are associated with palpitations and lightheadedness and shortness of breath but otherwise asymptomatic at rest. After episodes subside he feels increased fatigue. Episodes last anywhere from 15 minutes to 5 hours. He had previously been diagnosed with paroxysmal atrial fibrillation and had required electrical cardioversion once. Currently on 50 mg daily metoprolol and had been advised to take an additional 25 mg daily p.r.n. for symptoms which he has been doing with no change. In the emergency department they are afebrile with vital signs within normal limits. TSH was normal in March per review of EMR. Will not repeat. Discussed patient with police communications dispatcher non-hiv prevention specialist. BASILIO Cordon is covering for Dr Le. Recommends starting 75mg metoprolol daily and following up outpatient. Notes that he may require additional/alternative anti-arrhythmic drug(s) in the future. BNP not markedly abnormal. Repeat troponin normal. [id number] Score for Atrial Fibrillation Stroke Risk 0 points Stroke risk was 0.2% per year in >90,000 patients (the [place] Atrial Fibrillation Cohort Study) and 0.3% risk of stroke/TIA/systemic embolism This explains why he is not currently on anticoagulation and this was discussed with patient. Patient remains rate controlled during time in the ED. He is therefore asymptomatic. Work up has been unremarkable. However, as attempting to discharge, patient becoming frustrated, unclear why these recommendations were not just able to be given while outpatient this morning at cardiologists office. Notes that he has been asymptomatic because at rest on stretcher for hours. Patient did ambulate with nurse and was initially rate controlled (maximum 96bpm) but within 15-30 seconds becoming symptomatic and at that time HR ranging from the 130s-160s. Returns to stretcher and lays down and becomes rate controlled spontaneously. Again, when standing and minimal exertion however, back to rapid ventricular response. Patient wondering about cardioversion but, explaiend to him that there is not a clear indication as, he remains hemodynamically stable throughout episodes and, when seated, he is rate controlled and that there are risks with cardioversion, both pharmacologic and electric. Based on this, I did reach out to non interventional cardiology again, now Dr Nunez police communications dispatcher. He concurs with same recommendations previously given and recommends close follow up. Notes that the utility of admitting to [facility] for this issue is low as there is not an EP weapons and tactics instructor which is likely what patient needs for more definitive treatment rather than empirically placing on anti-arrhythmic medications which care side effects/risks of their own. Discussed this with patient who verifies understanding. Urged to call cardiology office in the morning and explain course of today's encounters and that they should have access to work up from today including EKGs, my note, and the documented rationale/advice from consultants. Given strict ED return precautions and he verifies understanding. <Ratna Hernandez MD - Last Filed: 07/03/24 06:23> Differential Diagnosis Differential diagnosis: Likely artial fibrillation and artial flutter <Chinyere Ryan PA-C - Last Filed: 07/04/24 17:11> Likely palpitations, anxiety, sinus tachycardia, ventricular premature beats, supraventricular tachycardia, ventricular tachycardia and WPW <Ratna Hernandez MD - Last Filed: 07/03/24 06:23> Lab Data Attestation: I reviewed the patient's lab results. <Ratna Hernandez MD - Last Filed: 07/03/24 06:23> Lab results narrative: Chemistry and troponin normal <Ratna Hernandez MD - Last Filed: 07/03/24 06:23> Result diagrams: 07/02/24 13:24 07/02/24 13:24 <Chinyere Ryan PA-C - Last Filed: 07/04/24 17:11> Labs: Lab Results 07/02/24 07/02/24 07/02/24 Range/Units 13:23 13:24 17:19 WBC 8.8 (4.5-10.0) K/mm3 RBC 5.32 (4.6-6.20) M/mm3 Hgb 16.1 (14.0-18.0) g/dL Hct 47.1 (42.0-52.0) % MCV 88.5 (80-100) fl MCH 30.3 (26-34) pg MCHC 34.2 (32-36) g/dl RDW 13.2 (11.5-14.5) % Plt Count 203 (150-375) k/mm3 MPV 9.9 (7.4-10.4) fl Immature Gran % (Auto) 0.2 (0-0.5) % Neut % (Auto) 60.9 (45.5-73.1) % Lymph % (Auto) 30.1 (18.3-44.2) % [place] % (Auto) 7.3 (2.6-8.5) % Eos % (Auto) 0.9 (0-4.4) % Baso % (Auto) 0.6 (0.2-1.2) % Lymph # (Auto) 2.64 (0.9-3.2) K/mm3 [place] # (Auto) 0.6 (0.1-0.6) K/mm3 Eos # (Auto) 0.1 (0-0.3) K/mm3 Baso # (Auto) 0.1 (0.0-0.1) K/mm3 Abs Immat Gran (auto) 0.02 (0.00-0.031) K/mm3 Absolute Neuts (auto) 5.3 (1.3-6.7) K/mm3 Absolute Nucleated RBC 0.000 (0.0-0.012) K/mm3 Nucleated RBC % 0.0 (0.0-0.2) % PT 13.2 (11.1-14.7) Seconds INR 1.0 APTT 26.7 (22.3-36.8) Seconds Sodium 138 (137-145) mmol/L Potassium 4.5 (3.4-5.0) mmol/L Chloride 103 (98-107) mmol/L Carbon Dioxide 28 (22-30) mmol/L Anion Gap 7 (4-12) mmol/L BUN 15 (9-20) mg/dL Creatinine 1.01 (0.7-1.3) mg/dL Estim Creat Clear Calc 72 ml/min Estimated GFR > 60 (59 - ) Glucose 99 (65-110) mg/dL Calcium 9.3 (8.4-10.2) mg/dL Magnesium 2.1 (1.6-2.3) mg/dL Total Bilirubin 1.1 (0.2-1.3) mg/dL AST 53 (17-59) U/L ALT 41 (6-50) U/L Alkaline Phosphatase 48 (38-126) U/L Troponin I < 0.012 < 0.012 (0.000-0.034) ng/mL NT-Pro-B Natriuret Pep 136 H (19.9-100) pg/mL Total Protein 8.0 (6.3-8.2) g/dL Albumin 4.7 (3.5-5.1) g/dL Lipase 132 (23-300) U/L <Chinyere Ryan PA-C - Last Filed: 07/04/24 17:11> Lab Results 07/02/24 07/02/24 07/02/24 Range/Units 13:23 13:24 17:19 WBC 8.8 (4.5-10.0) K/mm3 RBC 5.32 (4.6-6.20) M/mm3 Hgb 16.1 (14.0-18.0) g/dL Hct 47.1 (42.0-52.0) % MCV 88.5 (80-100) fl MCH 30.3 (26-34) pg MCHC 34.2 (32-36) g/dl RDW 13.2 (11.5-14.5) % Plt Count 203 (150-375) k/mm3 MPV 9.9 (7.4-10.4) fl Immature Gran % (Auto) 0.2 (0-0.5) % Neut % (Auto) 60.9 (45.5-73.1) % Lymph % (Auto) 30.1 (18.3-44.2) % [place] % (Auto) 7.3 (2.6-8.5) % Eos % (Auto) 0.9 (0-4.4) % Baso % (Auto) 0.6 (0.2-1.2) % Lymph # (Auto) 2.64 (0.9-3.2) K/mm3 [place] # (Auto) 0.6 (0.1-0.6) K/mm3 Eos # (Auto) 0.1 (0-0.3) K/mm3 Baso # (Auto) 0.1 (0.0-0.1) K/mm3 Abs Immat Gran (auto) 0.02 (0.00-0.031) K/mm3 Absolute Neuts (auto) 5.3 (1.3-6.7) K/mm3 Absolute Nucleated RBC 0.000 (0.0-0.012) K/mm3 Nucleated RBC % 0.0 (0.0-0.2) % PT 13.2 (11.1-14.7) Seconds INR 1.0 APTT 26.7 (22.3-36.8) Seconds Sodium 138 (137-145) mmol/L Potassium 4.5 (3.4-5.0) mmol/L Chloride 103 (98-107) mmol/L Carbon Dioxide 28 (22-30) mmol/L Anion Gap 7 (4-12) mmol/L BUN 15 (9-20) mg/dL Creatinine 1.01 (0.7-1.3) mg/dL Estim Creat Clear Calc 72 ml/min Estimated GFR > 60 (59 - ) Glucose 99 (65-110) mg/dL Calcium 9.3 (8.4-10.2) mg/dL Magnesium 2.1 (1.6-2.3) mg/dL Total Bilirubin 1.1 (0.2-1.3) mg/dL AST 53 (17-59) U/L ALT 41 (6-50) U/L Alkaline Phosphatase 48 (38-126) U/L Troponin I < 0.012 < 0.012 (0.000-0.034) ng/mL NT-Pro-B Natriuret Pep 136 H (19.9-100) pg/mL Total Protein 8.0 (6.3-8.2) g/dL Albumin 4.7 (3.5-5.1) g/dL Lipase 132 (23-300) U/L <Ratna Hernandez MD - Last Filed: 07/03/24 06:23> Imaging Data Radiologist's impression: Impressions Chest X-Ray 07/02/24 13:58 IMPRESSION: No focal infiltrate or effusion. <Ratna Hernandez MD - Last Filed: 07/03/24 06:23> ECG Data EKG #1: ECG completion date: 07/02/24 <Chinyere Ryan PA-C - Last Filed: 07/04/24 17:11> ECG completion time: 11:48 <Ratna Hernandez MD - Last Filed: 07/03/24 06:23> Interpretation: Atrial flutter/tachycardia at a rate of 107 beats per minute. QRS 117. QT/QTC 275/337. Good R-wave progression across the precordial leads. Intraventricular conduction delay. No T-wave inversions. <Ratna Hernandez MD - Last Filed: 07/03/24 06:23> EKG Interpretation: tachycardia and atrial flutter <Chinyere Ryan PA-C - Last Filed: 07/04/24 17:11> EKG #2: Attestation: I personally reviewed and interpreted this ECG as follows: < Ratna Hernandez MD - Last Filed: 07/03/24 06:23> ECG completion date: 07/02/24 <Ratna Hernandez MD - Last Filed: 07/03/24 06:23> ECG completion time: 17:00 <Ratna Hernandez MD - Last Filed: 07/03/24 06:23> Interpretation: Ectopic atrial rhythm. Rate controlled. MD interval 108. QRS 134. QT/QTC 334/374. Good R-wave progression across the precordial leads. No T-wave inversions <Ratna Hernandez MD - Last Filed: 07/03/24 06:23> EKG #3: Attestation: I personally reviewed and interpreted this ECG as follows: < Ratna Hernandez MD - Last Filed: 07/03/24 06:23> ECG completion date: 07/02/24 <Ratna Hernandez MD - Last Filed: 07/03/24 06:23> ECG completion time: 18:33 <Ratna Hernandez MD - Last Filed: 07/03/24 06:23> Interpretation: Atrial flutter/tachycardia with rapid ventricular response at a rate of 135 beats per minute. QRS 87. QT/QTC 279/358. <Ratna Hernandez MD - Last Filed: 07/03/24 06:23> Critical Care Time Critical Care Time Critical Care Time: No <Chinyere Ryan PA-C - Last Filed: 07/04/24 17:11> Discharge Plan Discharge Clinical Impression: Atrial arrhythmia <Chinyere Ryan PA-C - Last Filed: 07/04/24 17:11> Patient Disposition: Home <Chinyere Ryan PA-C - Last Filed: 07/04/24 17:11> Condition: Stable <Chinyere Ryan PA-C - Last Filed: 07/04/24 17:11> Instructions: Antibiotic Form, Atrial Flutter (ED), Atrial Tachycardia (DC) <Chinyere Ryan PA-C - Last Filed: 07/04/24 17:11> Additional Instructions: Cardiology recommended that you start taking 75mg/day (can start with 1.5 tablets of your current dose if desired but prescription also provided) of metoprolol to see if symptoms improve. It is important that you follow up with cardiology as you may require an anti-arrhythmic medication if you continue to be symptomatic. Return to the emergency department any new or worsening or unmanaged symptoms <Chinyere Ryan PA-C - Last Filed: 07/04/24 17:11> Patient Language: Kazakh <Chinyere Ryan PA-C - Last Filed: 07/04/24 17:11> Prescriptions: New metoprolol succinate 50 mg tablet extended release 24 hr 50 mg PO DAILY Qty: 30 0RF Rx Instructions: with 25mg tablet (for total 75mg/day) metoprolol succinate 25 mg capsule,sprinkle,ER 24hr 25 mg PO DAILY Qty: 30 0RF Rx Instructions: with 50mg (for total 75mg daily) No Action fluticasone propionate [Flonase Allergy Relief] 50 mcg/actuation spray,suspension 1 spray intranasal BID Qty: 16 3RF Rx Instructions: administer into each nostril testosterone cypionate 200 mg/mL oil 80 mg subcut .twice weekly Patient Comments: Pt takes on Sundays and Wednesdays metoprolol succinate 25 mg tablet extended release 24 hr 12.5 mg PO DAILY 30 Days Qty: 15 1RF aspirin [Aspirin Childrens] 81 mg tablet,chewable 81 mg PO DAILY Qty: 30 0RF <Chinyere Ryan PA-C - Last Filed: 07/04/24 17:11> Follow-up/Referrals: Stewart Kim MD [Physician] - Mp,KLAUDIA Chisholm [Primary Care Provider] - <Chinyere Ryan PA-C - Last Filed: 07/04/24 17:11> Stand Alone Forms: Work/School Release IP <Chinyere Ryan PA-C - Last Filed: 07/04/24 17:11> Time of Disposition: 18:10 <Chinyere Ryan PA-C - Last Filed: 07/04/24 17:11> 18:10 <Ratna Hernandez MD - Last Filed: 07/03/24 06:23>
--- OUTSIDE RECORDS SUMMARY | 2024-07-02 13:15 | XMS_ITS | Clinical Summary ---
Author Organization [facility] Address [address] [place] [address] Care Team Providers Care Director Of Medical Education Name Role Phone Unavailable Primary Care Provider [...] Description 06/19/2024 10:00 AM CDT Office Visit [facility] Orth[facility] at the [address] [phone] Stewart Leigh PA-C Tear of medial collateral ligament of right knee, subsequent encounter (Primary Dx) 05/29/2024 External Device Data STL ABSTRACTION Provider, Abstract 05/22/2024 9:45 AM CDT Office Visit [facility] Surgery at the [address] [phone] See Al MD Tear of medial collateral ligament of right knee, initial encounter (Primary Dx) 04/24/2024 1:40 PM CDT Office Visit [facility] Surgery at the [place] [address] [facility] [address] [phone] See Al MD Tear of medial collateral ligament of right knee, initial encounter (Primary Dx) 04/24/2024 External Device Data STL ABSTRACTION Provider, Abstract 04/24/2024 External Device Data STL ABSTRACTION Provider, Abstract 04/24/2024 External Device Data STL ABSTRACTION Provider, Abstract 04/24/2024 External Device Data STL ABSTRACTION Provider, Abstract 04/23/2024 3:54 PM CDT - 04/23/2024 11:59 PM CDT Hospital Encounter [facility] [address] [address] [place] [phone] Hollie Vernon PA-C Discharge Disposition: Home or Self Care 04/23/2024 2:40 PM CDT Ancillary Procedure [facility] Surgery at the [phone] Hollie Venron PA-C Acute pain of right knee 04/23/2024 2:30 PM CDT Office Visit [facility] Orthopedic Surgery at the [address] [phone] Hollie Vernon PA-C Internal derangement of knee [...] of the right knee. DICTATION LOCATION: Location [address] [place] [address] Narrative 04/23/2024 3:09 PM CDT EXAMINATION: XR [...] the right knee. DICTATION LOCATION: Location - [facility] Hollie Vernon PA-C DIAGNOSTIC IMAGING [facility]DE [place] Final Result from Last 3 Months Insurance [facility]
--- OUTSIDE RECORDS SUMMARY | 2024-07-02 13:15 | XMS_ITS | Encounter Summary ---
Author Organization [facility] Healthcare Address [address] [place] [address] Care Team Providers Care Herbicide Service Sales Representative Name Role Phone Kathrine Gresham Primary Care Pr ovider Reason for Visit * Reason Comments Atrial Flutter EKG only visit * Cardiology (Routine) - Closed Specialty Diagnoses / Procedures Referred By Contac t Referred To Contact Diagnoses Paroxysmal atrial flutter (HCC) Procedures ECG 12 lead Taylor Mccurdy NP [address] [facility] [address] [address] Phone: tel: fax: [facility] Medical Group Referral ID Status Reason Start Date Expiration Date Visits Re quested Visits Authorized [id number] Closed 07/02/2024 08/01/2025 1 1 Encounter Details Date Type Department Care Team (Latest Contact Info) Description 07/02/2024 11:15 AM CDT Procedure visit [facility] Medical [facility] Cardiology [address] [facility] [address] [place] [phone] Paroxysmal atrial flutter (HCC) Social History Tobacco Use Types Packs/Day Years Used Date Smoking Tobacco: Never Sex and Gender Information Value Date Recorded Sex Assigned at Not on file Legal Sex 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 LUIS Salinas escorted patient to [facility] ED with copy of EKG. EKG given to Dr. Nunez for review. documented in this encounter Plan of Treatment Not on file documented as of this encounter Procedures Procedure Name Priority Date/Time Associated Diagnosis Comments ECG 12-LEAD Routine 07/02/2024 12:26 PM CDT Paroxysmal atrial flutter (HCC) documented in this encounter Results * ECG 12 lead (07/02/2024 12:26 PM CDT) Taylor Mccurdy SALES AND MARKETING ENGINEER ECG ORDERABLES Final Res ult documented in this encounter Visit Diagnoses Diagnosis Paroxysmal atrial flutter (HCC) documented in this encounter Care Teams Herbicide Service Sales Representative Relationship Specialty Start Date End Date Kathrine Gresham PA [address] [place] [address] PCP - General Physician Livestock Trader 03/20/24 documented as of this encounter
--- OUTSIDE RECORDS SUMMARY | 2024-07-02 13:15 | XMS_ITS | Data Portability ---
Author Organization DAVEY Yasmeen FITZGERALD Address [address] [place] [address] Care Team Providers Care School Year Nanny Name Role Phone NED BACH Primary Care Provider Unavailab le Assessment Encounter Date Assessment Date Assessment LastModified by Organization Details LastModified Time 05/15/2024 05/15/2024 labs UTD from february 2024. [email or web address] Not available 05/15/2024 15:33:04 Plan of Treatment Reminders Order Date Submit Date Provider Last Modified By Organization Details Last Modified Time Details Appointments None recorded. Lab lipid panel, serum 2024 025 [email or web address] [facility], [address] [place], [address], 5 15:39:22 CMP, serum or plasma [email or web address] [facility], [address] [place], [address], 5 15:39:22 CMP, serum or plasma 2023 024 [facility], [address] [place], [address], 5 13:44:22 lipid panel, serum 2023 024 [facility], [address] [place], [address], 5 13:41:13 TSH + free T4, serum 2023 [email or web address] [address] [place], [address], 4 09:31:51 CBC w/ auto diff [address] Out[facility], [address] [place], [address], 4 10:57:26 CMP, serum or plasma [address] [facility], [address] [place], [address], 4 10:57:26 lipid panel, serum [address] [facility], [address] [place], [address], 4 10:57:26 PSA, serum or plasma [address] [facility], [address] [place], [address], 4 10:57:26 testostero ne, free + total, serum 2023 024 KAREN [facility], [address] [place], [address], 4 12:24:27 vitamin B12 + folate, serum or blood [address] [facility], [address] [place], [address], 4 10:57:26 HbA1c (hemoglobi n A1c), blood [address] [facility], [address] [place], [address], 4 10:57:26 Referral None recorded. Procedures None recorded. Surgeries None recorded. Imaging XR, thoracic spine, 2 view 2023 [facility], [address], [place], [address], 4 10:06:33 MRI, thoracic spine, w/o contrast [address] [facility], [address], [place], [address], 4 15:48:53 Medication Orders meloxicam 15 mg tablet 2023 024 [id number], [address], [place], [address], 4 17:55:10 Patient TargetsNo targets recorded. Patient Instructions Encounter Date Encounter Id Patient Instructions Last Modified By Organization Details Last Modified Time 05/15/2024 [id number] A healthy lifestyle: care instructions [place] [address] Not available 05/15/2024 15:38:07 Reason for Referral None Reported. Results Created Date Observation Date Name Description Value Unit Range Abnormal Flag Note LastModifiedBy Organization Detail LastModifiedTime 08/10/19 24 08/09/2023 XR, thora cic spine , 2 view No observ ation record ed. [facility] [address], [place], [address], 08/16/2023 18:11:22 03/21/1903/21/2024 CT, brain , w/o contr ast No observ ation record ed. [address] [facility] [address], [place], [address], 03/23/2024 00:32:52 03/30/19 25 03/30/2024 XR, chest , 2 view No observ ation record ed. [address] [facility] [address], [place], [address], 04/02/2024 09:01:08 04/20/19 25 03/20/2024 US, echoc ardio gram No observ ation record ed. BARCODE Not Available 2024 10:58:27 04/22/19 25 04/21/2024 XR, knee, 3 view No observ ation record ed. [email or web address] [facility] [address] [facility], [place], [address], 04/27/2024 13:24:28 05/08/19 25 05/07/2024 medic al recor d reque st* No observ ation record ed. [facility] - Pulmonology Pulmonary & Sleep Medicine [address], [facility] [address], [place], [address], 05/11/2024 16:26:37 05/22/19 25 04/18/2024 sleep study , diagn ostic (PROC ) No observ ation record ed. BARCODE Not Available 2024 12:49:00 Result Notes None recorded. Problems Name Problem SNOMED Code Status Onset Date Resolution Date Notes Provider Name and Address Organization Details Recorded Time Body mass index 25-29 - overweight 584581970 Active 2023 GONZALO Gamboa Attn: Juan Antonio gaxiola,[address] [place], [address], [facility] 4 11:54:58 Osteoarthritis 288591652 Active 2023 GONZALO Gamboa Attn: Juan Antonio gaxiola,[address] [place], [address], [facility] 4 11:55:08 Chronic low back pain 898027111 Active 2023 GONZALO Gamboa Attn: Juan Antonio gaxiola,[address] [place], [address], [facility] 4 11:55:26 Thoracic back pain 575000402 Active 2023 GONZALO Gamboa Attn: Juan Antonio gaxiola,[address] [place], [address], [place] [facility] 4 11:55:48 Benign essential hypertension 4934434 Active 2023 GONZALO Gamboa Attn: Timman gaxiola,[address] [facility], [place], [address], [place] [facility] 4 11:57:13 Long-term drug therapy Active 2023 GONZALO Gamboa Attn: Timman gaxiola,[address] [facility], [place], [address], [place] [facility] 4 01:29:35 Hyperlipidemia 24768966 Active 2023 GONZALO Gamboa Attn: Juan Antonio khalida,[address] [place], [address], [place] [facility] 4 01:29:46 Paroxysmal atrial fibrillation 272632583 Active 2024 GONZALO Gamboa Attn: Juan Antonio gaxiola,[address] [facility], [place], [address], [place] [facility] 5 15:37:39 Steatotic liver disease 338001251 Active 2024 GONZALO Gamboa Attn: Juan Antonio khalida,[address] [facility], [place], [address], [place] [facility] 5 15:37:41 Overweight 881737958 Active 2024 GONZALO Gamboa Attn: Juan Antonio gaxiola,[address] [place], [address], [place] [facility] 5 15:37:42 Obstructive sleep apnea syndrome 03941918 Active 2024 GONZALO Gamboa Attn: Juan Antonio gaxiola,[address] [place], [address], [place] [facility] 5 15:38:04 Problem Notes None recorded. Procedures Surgical History Date Name Laterality Status Provider Name and Address Organization Details Recorded Time Back Surgery completed Ruy Vallejo [place] [facility] 08/09/2023 15:22:37 Imaging Results Imaging Date Name Status LastModified by Organization Details LastModified Time 08/09/2023 XR, thoracic spine, 2 view completed [facility] [address], [place], [address], 08/16/2023 18:11:22 03/21/2024 CT, brain, w/o contrast completed [address], [place], [address], 03/23/2024 00:32:52 03/30/2024 XR, chest, 2 view completed [place] [id number] [facility] [address], [place], [address], 04/02/2024 09:01:08 03/20/2024 US, echocardiogram completed BARCODE Inform ation not available 04/19/2024 10:58:27 04/21/2024 XR, knee, 3 view completed [address] [place], [address], 04/27/2024 13:24:28 05/07/2024 medical record request* completed [address] - Pulmonology Pulmonary & Sleep Medicine [address], [facility] [address], [place], [address], 05/11/2024 16:26:37 04/18/2024 sleep study, diagnostic (PROC) [...] Updated DateTime 4 170.18 cm 25.2 kg/m2 05132.9 3 g 20 /min 99 % 99 % 60 /min 148 mm[Hg] 88 mm[Hg] Ruy Vallejo MA [facility] 4 15:32:39 Date Recorded Systolic blood pressure Diastolic blood pressure Systolic blood pressure Diastolic blood pressure Provider Name and Address Organization Details Last Updated DateTime 08/09/2023 132 mm[Hg] 84 mm[Hg] 140 mm[Hg] 80 mm[Hg] GONZALO Gamboa Attn: [place], [address] , [facility] 4 15:59:01 Date Recorded Body height Body mass index (BMI) Body weight Heart rate Oxygen saturation Oxygen saturation in Arterial blood by Pulse oximetry Systolic blood pressure Diastolic blood pressure Provider Name and Address Organization Details Last Updated DateTime 4 170.18 cm 24.6 kg/m2 64614.2 8 g 74 /min 97 % 97 % 122 mm[Hg] 68 mm[Hg] Leydi Garcia MA [facility] 4 17:19:33 Date Recorded Systolic blood pressure Diastolic blood pressure Provider Name and Address Organization Details Last Updated DateTime 10/03/2023 128 mm[Hg] 80 mm[Hg] GONZALO Gamboa Attn: Accounting,[address] [place], [address], [facility] 10/03/2023 17:55:33 Date Recorded Body height Body mass index (BMI) Body weight Respiratory rate Oxygen saturation Oxygen saturation in Arterial blood by Pulse oximetry Heart rate Systolic blood pressure Diastolic blood pressure Provider Name and Address Organization Details Last Updated DateTime 5 170.18 cm 26.9 kg/m2 92663.8 9 g 20 /min 97 % 97 % 74 /min 126 mm[Hg] 82 mm[Hg] Ruy Vallejo MA [facility] 5 15:16:56 Date Recorded Systolic blood pressure Diastolic blood pressure Provider Name and Address Organization Details Last Updated DateTime 05/15/2024 120 mm[Hg] 80 mm[Hg] GONZALO Gamboa Attn: Accounting,[address] [place], [address], [facility] 05/15/2024 15:37:17 Social History Question Answer Notes LastModified by Organizat ion Details LastModified Time Tobacco Smoking Status Never Smoker Ruy Vallejo MA null, [facility] 08/09/2023 15:23:48 Do You Have An Advance Directive? No Information not available 08/09/2023 Are You Blind Or Do You Have Difficulty Seeing? No Glasses Information not available 08/09/2023 What Is Your Level Of Caffeine Consumption? Occasional Information not available 08/09/2023 In The 14 Days Before Symptom Onset, Have You Had Close Contact With A Laboratory-confir [facility] COVID-19 While That Case Was Ill? No Information not available 08/09/2023 In The 14 Days Before Symptom Onset, Have You Had Close Contact With A Person Who Is Under Investigation For COVID-19 While That Person Was Ill? No Information not available 08/09/2023 Have You Been To An Area Known To Be High Risk For COVID-19? No Information not available 08/09/2023 Are You Deaf Or Do You Have Serious Difficulty Hearing? No Tinnuits Information not available 08/09/2023 What Type Of Diet Are You Following? REGULAR Information not available 08/09/2023 Are There Any [...] Counseling Provided? 05/15/2024 Information not available 05/15/2024 Sex: Male Functional Status Question Answer Note LastModified by Organizat ion Details LastModified Time Do you use any illicit or recreational drugs? No Information not available 08/09/2023 Do you or have you ever used any other forms of tobacco or nicotine? No Information not available 08/09/2023 What is your level of alcohol consumption? None former Information not available 08/09/2023 Are you currently employed? Yes Information not available 08/09/2023 Are you able to care for yourself? 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 Information not available 08/09/2023 What is your [...] High Blood Pressure Y Atrial Fibrillation Y Thyroid Problems N Kidney or Bladder Problems N GI Problems N Depression N COPD N Blood Clots N Skin Problems N Anemia N Heart Attack (VT) N Diabetes N Anxiety Disorder Y Muscle, Joint, or Bone Problems Y Seizures/Epilepsy N Acid Reflux (GERD) N Cancer N Stroke N Asthma N Allergies N High Cholesterol Y Hepatitis N Liver Disease N Headaches N Osteoporosis N Heart Failure N Past Encounters Encounter ID Performer Location Encounter Start Date Encounter Closed Date Diagnosis/Indication Diagnosis SNOMED-CT Code Diagnosis ICD10 Code Diagnosis Note [id number] Ritchie Damon MD [facility] [place] [address] [place] [address] 08/09/2023 15:10:02 08/09/2023 16:07:03 Body mass index 25-29 - overweight 824926934 Z68.25 Thoracic back pain 38337 8004 M54.6 More problemati c and acute at this time is thoracic back pain. Check baseline x-ray of the thoracic spine with plans to proceed with an MRI to evaluate disc spacing and nerve root exits. Chronic low back pain 27 5356663 M54.50 Chronic low back pain with history of lumbar L5 diskectomy Osteoarthritis 816880860 M19.90 Underlying osteoarthr itis noted per patient report Cholesterol screening 27 0155160 Z13.220 Fasting lipid panel due Diabetes m ellitus screening 135779446 Z13.1 Annual A1c screening due Screening for malignant neoplasm of prostate 378995648 Z12.5 Annual PSA due Long-term drug therapy 959442333 Z79.899 Routine CBC and CMP labs ordered Thyroid di sorder screening 341961682 Z13.29 Routine thyroid function panel ordered Endocrine/ metabolic screening 656755660 Z13.228 Screening testostero ne per patient request and check vitamin B12 and folate. Benign ess ential hypertension 2798396 I10 Patient is running around 140/80 at this time, borderline control currently on metoprolol succinate ER 25 mg daily. He will continue to monitor pressures, at this time we will keep dosing at 25 mg. [id number] Ritchie Damon MD [facility] [employer] [address] [place] [address] 10/03/2023 17:02:45 10/03/2023 18:09:39 Hyperlipidemia 32892450 E78.5 Fasting lipid panel is due to monitor for improvemen t with dietary Long-term drug therapy 970115242 Z79.899 Routine CMP lab due Chronic low back pain 27 4121429 M54.50 Chronic low back pain with history of lumbar L5 diskectomy Adult [facility] th examination 448711519 Z00.00 Annual wellness exam complete Body mass index 20-24 - normal 817665424 Z68.24 BMI is 24.6 [id number] Ritchie Damon MD [facility] [employer] [address] [place] [address] 05/15/2024 14:58:06 05/15/2024 16:08:18 Paroxysmal atrial fibrillation 649947543 I48.0 pt is seeing cardiology routinely. has [...] help nearly eliminate his paroxysmal AFib Hyperlipidemia 38225263 E78.5 Patient has elected to have diet and exercise manage of hose hyperlipid emia. He is due for updated labs again fasting in July. LDL was 132 in February. Body mass index 25-29 - overweight 492962020 Z68.25 BMI 26.9 Overweight 087327694 E66 .3 Steatotic liver disease 082328686 K76.0 History of fatty liver noted Long-term drug therapy 610471034 Z79.899 Obstructiv e sleep apnea syndrome 25129119 G47.33 cpap titration in june scheduled. Health Concerns Section Related Observation LastModified by Organization Detai ls LastModified Time None Recorded Concern Status LastModified by Organization Details LastModified Time None Recorded Advance Directives Directive N: Payers Encounter Date Sequence Insurance Name Policy Number Policy Colindres Covered Member ID Colindres Member ID Guarantor Name 08/09/2023 1 [place] [id number] 3 Naif Yu [id number] Naif Ferrisponeri 10/03/2023 1 [place] [id number] 3 Naif Yu [id number] Naif Ferrisponeri 05/15/2024 1 [place] [id number] Naif Yu [id number] Naif Yu Notes Date Note Type [...] at least a year. Dr. Bernabe in [place]. Nothing is helping the middle back. There is a knot feeling and jabbing feeling, and numbness. Sharp pains that occur for seconds in the posterior left shoulder and upper arm/side. He does have hx of CLBP with hx of L5 discectomy type procedure. Hx of pain management lumbar spine, with multiple injections in , Dr. Herbert in [place].HypertensionReporte d bypatient.Notes:off metoprolol ER now. BP has been stable at home. 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 GONZALO Gamboa Attn: Accounting,[address] [facility], [place], [address], [facility] 08/21/2023 11:57:34 4 text/html Back [...] medication therapy. GONZALO Gamboa Attn: Accounting,[address] [facility], [place], [address], [facility] 10/16/2023 01:30:40 text/html Atrial FibrillationReported bypatient.Notes:Atrial fibrillation [...] hyperlipidemia but declines any medication therapy.KneeReported bypatient.Notes:seeing [facility] ortho and has large knee brace in place. complete tear MCL. getting P.T. GONZALO Gamboa Attn: Accounting,[address] [facility], [place], [address], [facility] 06/09/2024 15:07:15
--- OUTSIDE RECORDS SUMMARY | 2024-07-02 13:15 | XMS_ITS | CONTINUITY OF CARE DOCUMENT ---
Author Name anna castillo Address Unknown Organization [facility] Address [address] [facility] [place] [address] Phone [phone] Care Team Providers Care Mortgage Protection Sales Name Role Phone Aditya Gayle MD Unavailable [phone] Zander Cerna MD Unavailable Zander Cerna MD Unavailable [phone] PROBLEMS Condition Status Date Provider Notes ETOH active Amber Mcdonald PALPITATIONS-03/27 HOLTER SR- SB HR 44-120 active ? Jim Norwood RN PIERCE active Aditya Gayle MD SOB active Aditya Baker Hypercholesterolemia active Aditya Gayle MD DIABETES MELLITUS active - Buzz Dumont MD ATRIAL FIB LONE ON BETA BLOC KER NO COUMADIN active Buzz Dumotn MD ENCOUNTERS Date Type Provider Location Encounter Diag nosis - In-person encounter Office Visit Aditya Gayle MD [facility] - In-person encounter Office Visit Aditya Gayle MD [facility] OSAHypercholesterolemiaSOB - In-person encounter Office Visit Buzz Dumont MD [facility] - In-person encounter Office Visit Krystian Vincent MD [facility] - In-person encounter Office Visit Buzz Dumont MD [facility] - In-person encounter Office Visit Mian Baker MD [facility] PALPITATIONS-03/27 HOLTER SR-SB HR 44-120 - In-person encounter Office Visit Buzz Dumont MD [facility] ATRIAL FIB LONE ON BETA RJ [...] Location 1 triglyceride, serum, fasting 337 mg/dL [facility] 1 HDL cholesterol, serum 53 mg/dL [facility] 1 LDL cholesterol, serum 123 mg/dL [facility] 1 cholesterol, serum 243 mg/dL [facility] 3 red blood cell distribution width, size density 45[facility] immature granulocytes, percentage of total cells, blood 0.3 % [facility] - 3 nucleated red blood cells as percent of blood leukocytes 0.0 % [facility] - 3 red blood cell (erythrocyte) [...] 3.9 3 mean platelet volume 10.8 (?) [facility] - 3 platelet count 193.0 THOUSAND/ [...] per day none [employer] smoking status Non-smoker [facility] MENTAL STATUS Date Observation Value Provider [...] Payer name Policy type / Coverage type [employer] red alliance party ID [facility] [id number] [place] [employer] (2) Medicaid [id number] TREATMENT PLAN Date Name Performer Cardiology: 6: Cholesterol: 243mg/dL LDL Cholesterol:123mg/dL HDL Cholesterol: 53mg/dL Triglyceride: 337mg/dL Aditya Baker Cardiology:Will atte mpt to get dental device. Otherwise, will schedule titration sleep study. Aditya Baker Cardiology:S/P succe ssful cardioverison. Will keep on Xarelto and Amiodarone for 3 months. His CHADs score is 0. Aditya [facility] Cardiology:The pt fina s admitted recently to [place] with new onset atrial fibrillation. Aditya [facility] Cardiology:The follo wing medications were removed from the medication list: Lovastatin 20 Mg Tabs (Lovastatin) ..... 1 tab by mouth daily Aditya [facility] Cardiology:BP today: 140/98 P rior BP: 127/64 (08/11/2010) The following medications were removed from the medication list: Aspirin 81 Mg Tabs (Aspirin) ..... One tab. daily Metoprolol Succinate 50 Mg Tb24 (Metoprolol succinate) ..... One tab. daily Aditya [facility] Cardiology [facility]:The pt fina s admitted recently to [place] with new onset atrial fibrillation. [facility] Cardiology:The pt fina s admitted recently to [place] with new onset atrial fibrillation. An attempt [...] today: 127/64 Prior BP: 130/89 (05/28/2010) S [facility] Echo Findings: Test considered to be [...] this problem includes: Toprol Xl 50 Mg Iw09e-pja (Metoprolol succinate) ..... 1 tab daily Aspirin 81 Mg Tabs (Aspirin) ..... One tab. daily BP today: 147/83 P rior BP: 129/68 (03/19/2010) Buzz Dumont MD follow up: H is updated medication list for this problem includes: Toprol Xl 50 Mg Sp59z-mtg (Metoprolol succinate) ..... 1 tab daily Aspirin [...] this problem includes: Toprol Xl 50 Mg Je49v-mmi (Metoprolol succinate) ..... 1 tab daily BP [...] this problem includes: Toprol Xl 50 Mg Fw54f-mbl (Metoprolol succinate) ..... 1 tab daily BP today: 129/68 Prior BP: 151/78 (02/03/2010) S tress Echo Findings: Test considered to be negative by ECG. Baseline echo was normal and post exercise echo showed expected changes. (01/26/2010) Orders: E KG (CPT-53581) H olter Monitor 24 Hr ([id number]) B ASIC METABOLIC PANEL W/EGFR (60815) M AGNESIUM (622) Mian Baker MD palpitations : T he following medications were removed from the medication list: Aspirin 325 Mg Tabs (Aspirin) ..... One tab daily His updated medication list for this problem includes: Toprol Xl 50 Mg Fw08m-ndm (Metoprolol succinate) ..... 1 tab daily BP today: 129/68 P rior BP: 151/78 (02/03/2010) Mian Baker MD palpitations Mian Baker MD Hosp follow up: B P today: 151/78 Prior BP: / () His updated medication list for this problem includes: Toprol Xl 50 Mg Xv61l-trs (Metoprolol succinate) ..... 1 tab daily BP today: 151/78 Prior BP: / () S tress Echo Findings: Test considered to be negative by ECG. Baseline echo was normal and post exercise echo showed expected changes. (01/26/2010) Buzz Dumont MD Hosp follow up: H is updated medication list for this problem includes: Toprol Xl 50 Mg Fd33l-lay (Metoprolol succinate) ..... 1 tab daily BP today: 151/78 Prior BP: / () S tress Echo Findings: Test considered to be negative by ECG. Baseline echo was normal and post exercise echo showed expected changes. (01/26/2010) Buzz Dumont MD Hosp follow up: H is updated medication list for this problem includes: Toprol Xl 50 Mg Cr41f-asa (Metoprolol succinate) ..... 1 tab daily BP [...] Gayle MD 3 months com pleted SNOMED-CT: 274813822 183573 Current Medications Documented Aditya Gayle MD completed EKG Aditya Gayle MD completed SNOMED-CT: 329791966 818025 Current Medications Documented Aditya Gayle MD completed EKG Mian Baker MD completed
--- OUTSIDE RECORDS SUMMARY | 2024-07-02 13:15 | XMS_ITS | Encounter Summary ---
Author Organization [facility] Address [address] [place] [address] Care Team Providers Care Product Safety Tester Name Role Phone Kathrine Gresham Primary Care Pr ovider Reason for Referral * Cardiology (Routine) - Closed Specialty Diagnoses / Procedures Referred By Contac t Referred To Contact Diagnoses Paroxysmal atrial flutter (HCC) Procedures ECG 12 lead Taylor Mccurdy NP [address] [facility] [address] [address] Phone: tel: fax: [facility] Medical Group Referral ID Status Reason Start Date Expiration Date Visits Re quested Visits Authorized [id number] Closed 07/02/2024 08/01/2025 1 1 Encounter Details Date Type Department Care Team (Late st Contact Info) Description 07/02/2024 Telephone [facility] Medical [facility] Cardiology [address] [address] Stewart Kim MD [address] [address] Social History Tobacco Use Types Packs/Day Years Used Date Smoking Tobacco: Never Sex and Gender Information Value Date Recorded Sex Assigned at Not on file 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
--- OUTSIDE RECORDS SUMMARY | 2024-07-02 13:15 | XMS_ITS | Clinical Summary ---
Author Organization [place] [address] [place] [address] [address] [place] [address] Care Team Providers Care Jigsawyer Name Role Phone FatumaellaKathrine Primary Care Pr [...] Description 07/02/2024 11:15 AM CDT Procedure visit [facility] Medical [facility] Cardiology [address] [place] [address] [address] [place] [phone] Paroxysmal atrial flutter (HCC) 07/02/2024 Telephone [facility] Medical [facility] Cardiology [address] [place] [address] [address] [place] [phone] Ronda Long MD 06/29/2024 Orders Only [facility] Medical [facility] Cardiology [address] [place] [address] [address] [place] [address] ProviderCitlali MD 05/15/2024 10:30 AM CDT Office Visit [facility] Cardiology [address] [place] [address] [place] [phone] Taylor Mccurdy NP PAF (paroxysmal atrial fibrillation) (HCC) (Primary Dx); PIERCE (obstructive sleep apnea) 05/09/2024 11:15 AM CDT Ancillary Procedure [facility] Cardiology [address] [place] [address] [place] [phone] Chest discomfort; Paroxysmal atrial flutter (HCC); PAF (paroxysmal atrial fibrillation) (HCC) 05/09/2024 Results Follow-Up [facility] Cardiology [address] [place] [address] [place] [phone] Ronda Long MD Stress Echo Exercise WO Doppler/CF 04/30/2024 Telephone [facility] Cardiology [address] [place] [address] [place] [phone] Ronda Long MD 04/18/2024 Orders Only [facility] Health Information Management [address] [place] [address] Taylor Mccurdy NP 04/05/2024 Results Follow-Up [facility] Cardiology [address] [place] [address] [place] [phone] Taylor Mccurdy NP 48 HR Holter Monitor 04/04/2024 Telephone [facility] Cardiology [address] [place] [address] [place] [phone] Taylor Mccurdy NP sleep study order from [...] on file 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 Gender Identity Not on file Sexual Orientation [...] 12:26 PM CDT Paroxysmal atrial flutter (HCC) SLEEP STUDY Routine 06/15/2024 4:53 PM CDT STRESS ECHO EXERCISE WO DOPPLER/CF WO CONTRAST Routine 05/09/2024 12:07 PM CDT Chest discomfort Paroxysmal atrial flutter (HCC) PAF (paroxysmal atrial fibrillation) (HCC) SLEEP LAB/STUDY - RESULT 04/18/2024 from Last 3 Months Results * ECG 12 lead (07/02/2024 12:26 PM CDT) Taylor Mccurdy NP ECG ORDERABLES Final Res ult * Sleep Study (06/15/2024 4:53 PM CDT) Historical Provider SLEEP CENTER ORDERABLES E dited Result - Final * STRESS ECHO EXERCISE WO DOPPLER/CF WO CONTRAST (05/09/2024 12:07 PM CDT) Anatomical Region Laterality Modality Ultrasound 05/09/2024 11:1 9 AM CDT Narrative 05/09/2024 2:10 PM CDT [facility] Cardiology [address], [place] [address] [address], [place] [address] P:[phone] P:[phone] Echocardiographic Report Patient Name: DANAE ZAIDI : 1975 Study Date: 05/09/2024 11:19:27 AM Gender: M Tech: [facility] Location: [place] Ref Provider: RONDA LONG Height(Cm): 170 BSA: [...] BP - 174/82 Rate Pressure Product - 69431 METS Achieved - 14.80 Percent Predicted Maximal HR Achieved - 103 % Interpretation Site: Exam was interpreted at [facility]. Performance: Above average exercise functional capacity. Hemodynamic [...] Procedure Note Ronda Long MD - 05/09/2024 [facility] Medical [facility] Cardiology [address] [facility] [address], [place] [address] [address] [facility] [address] [place] [address] P:[phone] P:[phone] Echocardiographic Report Patient Name: DANAE ZAIDI : 1975 Study Date: 05/09/2024 11:19:27 AM Gender: M Tech: [facility] Location: [facility] Provider: RONDA LONG Height(Cm): 170 BSA: 1.95 [...] BP - 174/82 Rate Pressure Product - 53353 METS Achieved - 14.80 Percent Predicted Maximal HR Achieved - 103 % Interpretation Site: Exam was interpreted at [facility]. Performance: Above average exercise functional capacity. Hemodynamic [...] Res ult from Last 3 Months Insurance [employer] CHOICE Care Teams Jigsawyer Relationship Specialty Start Date End Date Kathrine Gresham PA [address] [place] [address] PCP - General Physician Cardiac Exercise Specialist 03/20/24
--- OUTSIDE RECORDS SUMMARY | 2024-07-02 13:15 | XMS_ITS | Encounter Summary ---
Author Organization [facility] Healthcare Address [address] [place] [address] Care Team Providers Care Lan Administrator Name Role Phone Kathrine Gresham Primary Care Pr ovider Encounter Details Date Type Department Care Team (Late st Contact Info) Description 05/09/2024 Results Follow-Up [facility] Medical Group Cardiology [address] [phone] Stewart Kim MD [address] [facility] [address] [place], [place] [id number] Stress Echo Exercise WO Doppler/CF Social History Tobacco Use Types Packs/Day Years Used Date Smoking Tobacco: Never Sex and Gender Information Value Date Recorded Sex Assigned at Not on file 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
--- OUTSIDE RECORDS SUMMARY | 2024-07-02 13:15 | XMS_ITS | Referral Summary ---
Author Organization [place] [address] [address] [place] [phone] Care Team Providers Care Tractor Distributor Name Role Phone MartínezKathrine ivey Franny SÁNCHEZ Primary Care Pr ovider Encounters Date Type Department Care Team Description 07/02/2024 11:15 AM CDT Procedure visit [facility] Cardiology [address] [place] [address] [place] [phone] Paroxysmal atrial flutter (HCC) 07/02/2024 Telephone [place] [address] [place] [phone] Ronda Long MD 06/29/2024 Orders Only [place] [address] [place] [phone] ProviderCitlali MD 05/15/2024 10:30 AM CDT Office Visit [place] [address] [place] [phone] Taylor Mccurdy NP PAF (paroxysmal atrial fibrillation) (HCC) (Primary Dx); PIERCE (obstructive sleep apnea) 05/09/2024 Results Follow-Up [facility] Cardiology [address] [place] [address] [place] [phone] Ronda Long MD Stress Echo Exercise WO Doppler/CF 05/09/2024 11:15 AM CDT Ancillary Procedure [facility] Cardiology [address] [place] [address] [place] [phone] Chest discomfort; Paroxysmal atrial flutter (HCC); PAF (paroxysmal atrial fibrillation) (HCC) 04/30/2024 Telephone [facility] Medical [facility] Cardiology [address] [place] [address] Ronda Long MD 04/18/2024 Orders Only [facility] Health Information Management [address] [place] [address] Taylor Mccurdy NP 04/05/2024 Results Follow-Up [facility] Cardiology [address] [facility] [address] [place] [phone] Taylor Mccurdy NP 48 HR Holter Monitor 04/04/2024 Telephone [facility] Cardiology [address] [facility] [address] [place] [phone] Taylor Mccurdy NP sleep study order [...] on file 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 Gender Identity Not on file Sexual Orientation [...] AM CDT Narrative 05/09/2024 2:10 PM CDT [facility] Medical Group Cardiology [address] [facility] [address], [place] [address] [address] [facility] [address], [place] [address] P:[phone] P:[phone] Echocardiographic Report Patient Name: DANAE ZAIDI : 1975 Study Date: 05/09/2024 11:19:27 AM Gender: M Tech: [facility] Location: [facility] Provider: RONDA LONG Height(Cm): 170 [...] BP - 174/82 Rate Pressure Product - 26632 METS Achieved - 14.80 Percent Predicted Maximal HR Achieved - 103 % Interpretation Site: Exam was interpreted at [facility]. Performance: Above average exercise functional capacity. [...] Procedure Note Ronda Long MD - 05/09/2024 [facility] Medical Group Cardiology [address] [facility] [address], [place] [address] [address] [facility] [address], [place] [address] P:[phone] P:[phone] Echocardiographic Report Patient Name: DANAE ZAIDI : 1975 Study Date: 05/09/2024 11:19:27 AM Gender: M Tech: [facility] Location: [place] Ref Provider: RONDA LONG Height(Cm): 170 BSA: [...] BP - 174/82 Rate Pressure Product - 02482 METS Achieved - 14.80 Percent Predicted Maximal HR Achieved - 103 % Interpretation Site: Exam was interpreted at [facility]. Performance: Above average exercise functional capacity. [...] Result * SLEEP LAB/STUDY - RESULT (04/18/2024) us Taylor Mccurdy ACT TUTOR Final Res ult from Last 3 Months Insurance [employer] ACC[employer] CHOICE Member Subscriber Plan / Payer (Ef fective 2021-Present) Name:Aimee Danae Relation to Subscriber:Self Name:Danae Zaidi Payer ID:[id number] (NAIC) Type:LOREN CHAPMAN Address: [facility] [id number] [place] [id number] Care Teams Tractor Distributor Relationship Specialty Start Date End Date Kathrine Gresham PA [address] [place] [address] PCP - General Physician Lead Cargo Mover 03/20/24
--- OUTSIDE RECORDS SUMMARY | 2024-07-02 13:15 | XMS_ITS | Encounter Summary ---
Author Organization [facility] Healthcare Address [address] [place] [address] Care Team Providers Care Administrative Office Manager Name Role Phone Kathrine Gresham Primary Care Pr ovider Encounter Details Date Type Department Care Team (Late st Contact Info) Description 06/29/2024 Orders Only [facility] Medical Group Cardiology [address] [place] [address] Provider, MD Citlali [address] [place] [phone] Social History Tobacco Use Types Packs/Day Years Used Date Smoking Tobacco: Never Sex and Gender Information Value Date Recorded Sex Assigned at Not on file 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
--- OUTSIDE RECORDS SUMMARY | 2024-07-02 13:15 | XMS_ITS | Encounter Summary ---
Author Organization [facility] Healthcare Address [address] [place] [address] Care Team Providers Care Building Construction Ironworker Name Role Phone Kathrine Gresham Primary Care Pr ovider Encounter Details Date Type Department Care Team (Late st Contact Info) Description 04/18/2024 Orders Only [facility] Health Information Management [address] [place] [address] Taylor Mccurdy NP [address] [facility] [address] [place] [address] Social History Tobacco Use Types Packs/Day Years Used Date Smoking Tobacco: Never Sex and Gender Information Value Date Recorded Sex Assigned at Not on file 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
[2024-07-02] MEDS: ASPIRIN 81 MG CHEWABLE TABLET 324 MG PO (13:25)
[2024-07-02 13:38] LABS: Basophils Absolute Auto 0.1 K/mm3 (0.0-0.1); Basophils Percent Auto 0.6 % (0.2-1.2); Eosinophils Absolute Auto 0.1 K/mm3 (0-0.3); Eosinophils Percent Auto 0.9 % (0-4.4); Hematocrit 47.1 % (42.0-52.0); Hemoglobin 16.1 g/dL (14.0-18.0); Immature Granulocyte Absolute 0.02 K/mm3 (0.00-0.031); Immature Granulocyte Percent A 0.2 % (0-0.5); Lymphocytes Absolute Auto 2.64 K/mm3 (0.9-3.2); Lymphocytes Percent Auto 30.1 % (18.3-44.2); Mean Corpuscular HGB Conc 34.2 g/dl (32-36); Mean Corpuscular Hemoglobin 30.3 pg (26-34); Mean Corpuscular Volume 88.5 fl (80-100); Mean Platelet Volume 9.9 fl (7.4-10.4); Monocytes Absolute Auto 0.6 K/mm3 (0.1-0.6); Monocytes Percent Auto 7.3 % (2.6-8.5); Neutrophils Absolute Auto 5.3 K/mm3 (1.3-6.7); Neutrophils Percent Auto 60.9 % (45.5-73.1); Platelet Count Result 203 k/mm3 (150-375); Red Blood Count 5.32 M/mm3 (4.6-6.20); Red Cell Distribution Width 13.2 % (11.5-14.5); White Blood Count 8.8 K/mm3 (4.5-10.0)
[2024-07-02 13:49] LABS: Magnesium 2.1 mg/dL (1.6-2.3)
[2024-07-02 13:51] LABS: Alanine Aminotransferase 41 U/L (6-50); Albumin Level 4.7 g/dL (3.5-5.1); Alkaline Phosphatase 48 U/L (38-126); Anion Gap 7 mmol/L (4-12); Aspartate Amino Transferase 53 U/L (17-59); Bilirubin,Total 1.1 mg/dL (0.2-1.3); Blood Urea Nitrogen 15 mg/dL (9-20); Calcium 9.3 mg/dL (8.4-10.2); Carbon Dioxide 28 mmol/L (22-30); Chloride 103 mmol/L (98-107); Estimated CRCL calculation 72 ml/min; Estimated Glomerular Filt Rate > 60; Glucose 99 mg/dL (65-110); Lipase 132 U/L (23-300); Potassium 4.5 mmol/L (3.4-5.0); Sodium 138 mmol/L (137-145)
[2024-07-02 14:03] LABS: Troponin I < 0.012 ng/mL (0.000-0.034)
[2024-07-02 15:12] LABS: Prothrombin Time 13.2 Seconds (11.1-14.7)
[2024-07-02 15:14] LABS: Partial Thromboplastin Time 26.7 Seconds (22.3-36.8)
--- NOTE | 2024-07-02 16:27 | ECG_ITS ---
Test Date: 2024-07-02 17:00:26 Measurements Intervals Wis[place] Rate: 83 P: 204 WI: 108 QRS: 28 QRSD: 134 T: 24 QT: 334 QTc: 394 Interpretive Statements ATRIAL FLUTTER INTRAVENTRICULAR CONDUCTION DELAY [130+ ms QRS DURATION] Compared to ECG 07/02/2024 11:48:17 NO SIGNIFICANT CHANGES Electronically Signed On 07-03-2024 13:24:52 CDT by Manjit Ramon M.D.
--- NOTE | 2024-07-02 16:29 | ECG_ITS ---
Test Date: 2024-07-02 18:33:58 Measurements Intervals [place] Rate: 135 P: 0 MN: 0 QRS: 54 QRSD: 87 T: -48 QT: 279 QTc: 418 Interpretive Statements ATRIAL FLUTTER/TACHYCARDIA WITH RAPID VENTRICULAR RESPONSE Compared to ECG 07/02/2024 17:00:26 RAPID VENTRICULAR RESPONSE NOW PRESENT Electronically Signed On 07-03-2024 13:29:37 CDT by Manjit Ramon M.D.
[2024-07-02 17:19] LABS: NT Pro B Type Natriuretic Pept 136 pg/mL (19.9-100)
[2024-07-02 17:56] LABS: Troponin I < 0.012 ng/mL (0.000-0.034)
[2024-07-02] MEDS: METOPROLOL SUCCINATE EXT REL 25 MG TABCR PO (19:02)
== END 2024-07-02 19:47 | disposition home or self-care (01) ==
PROVIDERS: Physician Assistant; Emergency Provider Student in an Organized Health Care Education/Training Program; PCP Physician Assistant
DX: I48.92 Unspecified atrial flutter (principal); I47.19 Other supraventricular tachycardia; I48.91 Unspecified atrial fibrillation; G47.33 Obstructive sleep apnea (adult) (pediatric); Z77.22 Contact with and (suspected) exposure to environmental tobacco smoke (acute) (chronic); R94.31 Abnormal electrocardiogram [ECG] [EKG]; I45.9 Conduction disorder, unspecified
CPT/HCPCS: 36415; 71046; 80053; 83690; 83735; 83880; 84484; 85025; 85610; 85730; 93005; 99284; A9270